=== PATIENT | female | born 1970 | race Caucasian/White ===

== ENCOUNTER 2019-04-10 22:57 | Emergency (ER) | payer OTHER, MEDICARE ==
[2019-04-10] MEDS ORDERED: 50% Dextrose in Water 50 ML Syringe ONE (22:59)
--- NOTE | 2019-04-10 23:04 | EDM.PDOC ---
ED HPI GENERAL MEDICAL PROBLEM - General Stated Complaint: PT HAS LOW BLOOD SUGAR LEVEL Time Seen by Provider: 04/10/19 23:00 - History of Present Illness INITIAL COMMENTS - FREE TEXT/NARRATIVE: HISTORY AND PHYSICAL: History of present illness: Patient's 49-year-old female with past medical history significant for insulin dependent diabetes who presents with a concern of hypoglycemia she arrives via paramedics history is somewhat unclear at this time she had a blood sugar reported of 20 and that on the scene she was given glucagon repeat was 30 4 repeat here was 40 IV was established and 1 amp of D50 was given and patient is awake upon arrival following commands moving all extremities but somewhat anxious. Review of systems: As per history of present illness and below otherwise all systems reviewed and negative. Past medical history: As per history of present illness and as reviewed below otherwise noncontributory. Surgical history: As per history of present illness and as reviewed below otherwise noncontributory. Social history: No reported history of drug or alcohol abuse. Family history: As per history of present illness and as reviewed below otherwise noncontributory. Physical exam: HEENT: Atraumatic, normocephalic, pupils reactive, negative for conjunctival pallor or scleral icterus, mucous membranes moist, throat clear, neck supple, nontender, trachea midline. Lungs: Clear to auscultation, breath sounds equal bilaterally, chest nontender. Heart: S1S2, regular, negative for clicks, rubs, or JVD. Abdomen: Soft, nondistended, nontender. Negative for masses or hepatosplenomegaly. Negative for costovertebral tenderness. Pelvis: Stable nontender. Genitourinary: Deferred. Rectal: Deferred. Extremities: Atraumatic, negative for cords or calf pain. Neurovascular unremarkable. Neuro: Awake, alert, anxious moves all extremities follows commands limited grossly nonfocal exam\ Diagnostics: EKG CBC CMP chest x-ray Therapeutics: Normal saline 1 L bolus 1 amp D50 IV Impression: #1 hypoglycemic episode #2 history of diabetes Definitive disposition and diagnosis as appropriate pending reevaluation and review of above. denies pain Pain Score (Numeric/FACES): 0 - Related Data Allergies Allergy/AdvReac Type Severity Reaction Status Date / Time Buanwxn-Fro-Wyz Reductase Allergy Other Verified 04/10/19 23:08 Inhibitor Home Meds: Home Meds Aspirin 81 mg PO DAILY 08/10/18 [History] Carvedilol 3.125 mg PO BID 08/10/18 [History] Cholecalciferol (Vitamin D3) [Vitamin D3] 1 cap PO DAILY 08/10/18 [History] Estrogens, Conjugated [Premarin] 1.25 mg PO DAILY 08/10/18 [History] Gabapentin [Neurontin] 100 mg PO TID 08/10/18 [History] Levomefolate/B6/B12/Algal Oil [l-Methylfolate Ca P-5-P Me-Cbl] 1 cap PO BID [History] Magnesium 250 mg PO BEDTIME 08/10/18 [History] Montelukast [Singulair] 10 mg PO DAILY 08/10/18 [History] Nitroglycerin [Nitrostat] 0.4 mg SL ASDIRECTED 08/10/18 [History] Topiramate 100 mg PO BID 08/10/18 [History] Insulin Aspart [NovoLOG] 0 unit SQ TIDMEALS 08/13/18 [History] Insulin Glarg,Human.Rec.Analog [Lantus Solostar] 6 unit SUBCUT BEDTIME 08/13/18 [History] Insulin Glarg,Human.Rec.Analog [Lantus] 8 unit SUBCUT ACBREAKFAST 08/13/18 [ History] ZOLMitriptan [Zomig] 5 mg SHILPA PRN 08/13/18 [History] Albuterol/Ipratropium [DuoNeb 3.0-0.5 MG/3 ML] 3 ml NEB Q6HRRT #1 box 08/15/18 [ Rx] Sulfamethoxazole/Trimethoprim [Bactrim Ds Tablet] 1 each PO BID 2 Days #4 tablet 08/15/18 [Rx] predniSONE [Prednisone] 20 mg PO BID 10 Days #14 tablet 08/15/18 [Rx] Past Medical History HEENT History: Reports: Allergic Rhinitis Cardiovascular History: Reports: [place] Other Cardiovascular History: triple bypass Respiratory History: Reports: Asthma, Sleep Apnea Gastrointestinal History: Reports: None Genitourinary History: Reports: Diabetic Nephropathy 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: Musculoskeletal History: Reports: None Neurological History: Reports: None Psychiatric History: Reports: None Endocrine/Metabolic History: Reports: Diabetes, Type I Hematologic History: Reports: None Immunologic History: Reports: None Oncologic (Cancer) History: Reports: None Dermatologic History: Reports: None - Infectious Disease History Infectious Disease History: Reports: Chicken Pox - Past Surgical History GI Surgical History: Reports: Appendectomy Social & Family History - Family History Family Medical History: Noncontributory - Caffeine Use Caffeine Use: Reports: Coffee ED ROS GENERAL - Review of Systems Review Of Systems: ROS reveals no pertinent complaints other than HPI. ED EXAM, GENERAL - Physical Exam Exam: See Below (See dictation) Course - Vital Signs Last Recorded V/S: Last Vital Signs Temp 35.5 C 04/10/19 23:00 Pulse 75 04/10/19 23:00 Resp 18 04/10/19 23:00 BP 157/83 H 04/10/19 23:00 Pulse Ox 97 04/10/19 23:00 - Orders/Labs/Meds Orders: Active Orders 24 hr Category Date Time Status EKG 12 Lead [EKG Documentation Completion] [RC] STAT Care 04/10/19 23:33 Active Pulse Oximetry [RC] ASDIRECTED Care 04/10/19 23:27 Active CULTURE URINE [RM] Stat Lab 04/11/19 00:11 Received Labs: Laboratory Tests 04/10/19 04/10/19 04/11/19 Range/Units 23:05 23:39 00:11 WBC 6.43 (4.0-11.0) K/uL RBC 4.48 (4.30-5.90) M/uL Hgb 13.9 (12.0-16.0) g/dL Hct 40.9 (36.0-46.0) % MCV 91.3 (80.0-98.0) fL MCH 31.0 (27.0-32.0) pg MCHC 34.0 (31.0-37.0) g/dL RDW Std Deviation 42.9 (28.0-62.0) fl RDW Coeff of Margaret 13 (11.0-15.0) % Plt Count 238 (150-400) K/uL MPV 9.50 (7.40-12.00) fL Neut % (Auto) 32.5 L (48.0-80.0) % Lymph % (Auto) 45.4 H (16.0-40.0) % Elmore % (Auto) 7.2 (0.0-15.0) % Eos % (Auto) 13.5 H (0.0-7.0) % Baso % (Auto) 1.4 (0.0-1.5) % Neut # (Auto) 2.1 (1.4-5.7) K/uL Lymph # (Auto) 2.9 H (0.6-2.4) K/uL Elmore # (Auto) 0.5 (0.0-0.8) K/uL Eos # (Auto) 0.9 H (0.0-0.7) K/uL Baso # (Auto) 0.1 (0.0-0.1) K/uL Nucleated RBC % 0.0 /100WBC Nucleated RBCs # 0 K/uL INR Sodium (136-145) mmol/L Potassium (3.5-5.1) mmol/L Chloride (98-107) mmol/L Carbon Dioxide (21.0-32.0) mmol/L BUN (7.0-18.0) mg/dL Creatinine (0.6-1.0) mg/dL Est Cr Clr Drug Dosing mL/min Estimated GFR (MDRD) ml/min Glucose (74-106) mg/dL POC Glucose 229 H (60-110) mg/dL Calcium (8.5-10.1) mg/dL Total Bilirubin (0.2-1.0) mg/dL AST (15-37) IU/L ALT (14-63) IU/L Alkaline Phosphatase (46-116) U/L Troponin I (0.000-0.056) ng/mL Total Protein (6.4-8.2) g/dL Albumin (3.4-5.0) g/dL Globulin (2.6-4.0) g/dL Albumin/Globulin Ratio (0.9-1.6) Urine Color YELLOW Urine Appearance CLEAR Urine pH 7.0 (5.0-8.0) Ur Specific Rock 1.015 (1.001-1.035) Urine Protein NEGATIVE (NEGATIVE) mg/dL Urine Glucose (UA) 100 H (NEGATIVE) mg/dL Urine Ketones NEGATIVE (NEGATIVE) mg/dL Urine Occult Blood NEGATIVE (NEGATIVE) Urine Nitrite NEGATIVE (NEGATIVE) Urine Bilirubin NEGATIVE (NEGATIVE) Urine Urobilinogen 0.2 (<2.0) EU/dL Ur Leukocyte Esterase MODERATE H (NEGATIVE) Urine RBC 0-1 (0-2/HPF) Urine WBC 0-3 (0-5/HPF) Ur Epithelial Cells OCCASIONAL (NONE-FEW) Urine Bacteria RARE (NEGATIVE) 04/11/19 04/11/19 04/11/19 Range/Units 00:15 00:15 00:15 WBC (4.0-11.0) K/uL RBC (4.30-5.90) M/uL Hgb (12.0-16.0) g/dL Hct (36.0-46.0) % MCV (80.0-98.0) fL MCH (27.0-32.0) pg MCHC (31.0-37.0) g/dL RDW Std Deviation (28.0-62.0) fl RDW Coeff of Margaret (11.0-15.0) % Plt Count (150-400) K/uL MPV (7.40-12.00) fL Neut % (Auto) (48.0-80.0) % Lymph % (Auto) (16.0-40.0) % Elmore % (Auto) (0.0-15.0) % Eos % (Auto) (0.0-7.0) % Baso % (Auto) (0.0-1.5) % Neut # (Auto) (1.4-5.7) K/uL Lymph # (Auto) (0.6-2.4) K/uL Elmore # (Auto) (0.0-0.8) K/uL Eos # (Auto) (0.0-0.7) K/uL Baso # (Auto) (0.0-0.1) K/uL Nucleated RBC % /100WBC Nucleated RBCs # K/uL INR 0.93 Sodium 142 (136-145) mmol/L Potassium 3.4 L (3.5-5.1) mmol/L Chloride 109 H (98-107) mmol/L Carbon Dioxide 25.6 (21.0-32.0) mmol/L BUN 23 H (7.0-18.0) mg/dL Creatinine 1.0 (0.6-1.0) mg/dL Est Cr Clr Drug Dosing 63.71 mL/min Estimated GFR (MDRD) 58.9 ml/min Glucose 232 H (74-106) mg/dL POC Glucose 231 H (60-110) mg/dL Calcium 8.4 L (8.5-10.1) mg/dL Total Bilirubin 0.2 (0.2-1.0) mg/dL AST 15 (15-37) IU/L ALT 29 (14-63) IU/L Alkaline Phosphatase 64 (46-116) U/L Troponin I < 0.050 (0.000-0.056) ng/mL Total Protein 6.2 L (6.4-8.2) g/dL Albumin 3.1 L (3.4-5.0) g/dL Globulin 3.1 (2.6-4.0) g/dL Albumin/Globulin Ratio 1.0 (0.9-1.6) Urine Color Urine Appearance Urine pH (5.0-8.0) Ur Specific Rock (1.001-1.035) Urine Protein (NEGATIVE) mg/dL Urine Glucose (UA) (NEGATIVE) mg/dL Urine Ketones (NEGATIVE) mg/dL Urine Occult Blood (NEGATIVE) Urine Nitrite (NEGATIVE) Urine Bilirubin (NEGATIVE) Urine Urobilinogen (<2.0) EU/dL Ur Leukocyte Esterase (NEGATIVE) Urine RBC (0-2/HPF) Urine WBC (0-5/HPF) Ur Epithelial Cells (NONE-FEW) Urine Bacteria (NEGATIVE) Meds: Medications Discontinued Medications Generic Name Dose Route Start Last Admin Trade Name Johnq PRN Reason Stop Dose Admin Dextrose/Water Confirm 04/10/19 22:59 04/10/19 23:06 Dextrose 50% In Water Administered 04/10/19 23:00 50 ml Dose Administration 50 ml .ROUTE .STK-MED ONE Dextrose/Water 50 ml 04/10/19 23:23 04/10/19 23:18 Dextrose 50% In Water IVPUSH 04/10/19 23:24 50 ml ONETIME ONE Administration Sodium Chloride 1,000 mls @ 999 mls/hr 04/10/19 23:26 04/10/19 23:32 Normal Saline IV 04/11/19 00:26 999 mls/hr .BOLUS ONE Administration Departure - Departure Time of Disposition: 01:21 Disposition: Home, Self-Care 01 Condition: Good Clinical Impression: Hypoglycemia - Discharge Information Referrals: PCP,None [Primary Care Provider] - Additional Instructions: The following information is given to patients seen in the emergency department who are being discharged to home. This information is to outline your options for follow-up care. We provide all patients seen in our emergency department with a follow-up referral. The need for follow-up, as well as the timing and circumstances, are variable depending upon the specifics of your emergency department visit. If you don't have a primary care physician on staff, we will provide you with a referral. We always advise you to contact your personal physician following an emergency department visit to inform them of the circumstance of the visit and for follow-up with them and/or the need for any referrals to a consulting specialist. The emergency department will also refer you to a specialist when appropriate. This referral assures that you have the opportunity for followup care with a specialist. All of these measure are taken in an effort to provide you with optimal care, which includes your followup. Under all circumstances we always encourage you to contact your private physician who remains a resource for coordinating your care. When calling for followup care, please make the office aware that this follow-up is from your recent emergency room visit. If for any reason you are refused follow-up, please contact the [facility] emergency department at and asked to speak to the emergency department charge nurse. Eat regularly as discussed Accu-Chek 4 times a day as discussed follow-up primary medical doctor as discussed and return as needed as discussed - My Orders Last 24 Hours: My Active Orders 04/10/19 23:27 Pulse Oximetry [RC] ASDIRECTED 04/10/19 23:33 EKG 12 Lead [EKG Documentation Completion] [RC] STAT 04/11/19 00:11 CULTURE URINE [RM] Stat - Assessment/Plan Last 24 Hours: My Active Orders 04/10/19 23:27 Pulse Oximetry [RC] ASDIRECTED 04/10/19 23:33 EKG 12 Lead [EKG Documentation Completion] [RC] STAT 04/11/19 00:11 CULTURE URINE [RM] Stat
[2019-04-10] MEDS ORDERED: 50% Dextrose in Water 50 ML Syringe IVPUSH ONE (23:23)
[2019-04-10] MEDS ORDERED: Sodium Chloride 0.9% 1,000 ML IV ONE (23:26)
--- NOTE | 2019-04-11 00:41 | CR ---
INDICATION: cardiac workup. CHEST, ONE VIEW An AP radiograph of the chest was performed. Comparison: 08/13/2018. The lungs appear clear and no pleural effusions are identified. Status post sternotomy and CABG is again seen. The cardiomediastinal silhouette and pulmonary vasculature appear normal, as do the visualized bones. IMPRESSION: No acute intrathoracic abnormality identified. REGINO CASTILLO MD [facility] Dictated by: Rodri Castillo MD @ 04/11/2019 00:40:06 (Electronically Signed)
[2019-04-11 00:46] LABS: CHLORIDE,CL 109 mmol/L (98-107); SODIUM,NA 142 mmol/L (136-145)
== END 2019-04-11 01:45 | disposition home or self-care (01) ==
LOC: MW.ED 22:57
DX: E10.649 Type 1 diabetes mellitus with hypoglycemia without coma (principal); J45.909 Unspecified asthma, uncomplicated; Z88.8 Allergy status to other drugs, medicaments and biological substances; Z79.4 Long term (current) use of insulin; Z79.82 Long term (current) use of aspirin; Z79.899 Other long term (current) drug therapy
CPT/HCPCS: 36415; 71045; 80053; 81001; 82962; 84484; 85025; 85610; 87086; 93005; 96361; 96374; 99284; J7040; J7060; 99283

== ENCOUNTER 2019-10-22 12:44 | Emergency (ER) | payer OTHER, MEDICARE ==
[2019-10-22] MEDS ORDERED: Sodium Chloride 0.9% 1,000 ML IV SCH (13:00)
[2019-10-22] MEDS ORDERED: Ketorolac 30 MG/ML SDV IVPUSH ONE (14:31)
--- NOTE | 2019-10-22 14:51 | EDM.PDOC ---
ED HPI GENERAL MEDICAL PROBLEM - General Chief Complaint: Diabetic Complaint Stated Complaint: FAINTING/LOW SUGARS Time Seen by Provider: 10/22/19 14:47 Source of Information: Reports: Patient - History of Present Illness INITIAL COMMENTS - FREE TEXT/NARRATIVE: HISTORY AND PHYSICAL: History of present illness: [Patient with history of diabetes on insulin presents with low blood sugar, glucose of 51 via EMS, she was provided 2 A of d50 in the ambulance, arrives on arrival glucose 61 after 1/2-hour glucose 180s has been stable over several checks, she is on insulin has taken her usual dose, she did take 8 units this morning with breakfast per sliding scale and is on 10 units of Lantus Patient has complained of headache prior to arrival and syncopal event which prompted the EMS call At current no fever nausea vomiting chills sweats no chest pain shortness of breath dizziness or palpitation no bowel or urine symptoms And has had nausea vomiting and diarrhea several days ago which have resolved States her glucose levels have been up and down since ] Review of systems: As per history of present illness and below otherwise all systems reviewed and negative. Past medical history: As per history of present illness and as reviewed below otherwise noncontributory. Surgical history: As per history of present illness and as reviewed below otherwise noncontributory. Social history: No reported history of drug or alcohol abuse. Family history: As per history of present illness and as reviewed below otherwise noncontributory. Physical exam: HEENT: Atraumatic, normocephalic, pupils reactive, negative for conjunctival pallor or scleral icterus, mucous membranes moist, throat clear, neck supple, nontender, trachea midline. Lungs: Clear to auscultation, breath sounds equal bilaterally, chest nontender. Heart: S1S2, regular, negative for clicks, rubs, or JVD. Abdomen: Soft, nondistended, nontender. Negative for masses or hepatosplenomegaly. Negative for costovertebral tenderness. Pelvis: Stable nontender. Genitourinary: Deferred. Rectal: Deferred. Extremities: Atraumatic, negative for cords or calf pain. Neurovascular unremarkable. Neuro: Awake, alert, oriented. Cranial nerves II through XII unremarkable. Cerebellum unremarkable. Motor and sensory unremarkable throughout. Exam nonfocal. Diagnostics: [accu checks CBC CMP UA ] Therapeutics: [Normal saline ]macrobid pt observed stable glucose over 3 hours, likely insulin reaction-resolved offered obs admission, refused Impression: uTI viralsyndrome resolved [Hypoglycemia resolved Insulin-dependent diabetic] Definitive disposition and diagnosis as appropriate pending reevaluation and review of above. Right shoulder Pain Score (Numeric/FACES): 4 - Related Data Allergies Allergy/AdvReac Type Severity Reaction Status Date / Time Zojzdip-Zoz-Sxk Reductase Allergy Other Verified 10/22/19 12:51 Inhibitor Home Meds: Home Meds Estrogens, Conjugated [Premarin] 1.25 mg PO DAILY 10/22/19 [History] Insulin Aspart [NovoLOG] See Protocol SQ ASDIRECTED 10/22/19 [History] Insulin Glarg,Human.Rec.Analog [Lantus] 6 unit SQ ASDIRECTED 10/22/19 [History] Insulin Glarg,Human.Rec.Analog [Lantus] 8 units SQ ASDIRECTED 10/22/19 [History] Pregabalin [Lyrica] 100 mg PO DAILY 10/22/19 [History] Topiramate 100 mg PO BID 10/22/19 [History] Past Medical History HEENT History: Reports: Allergic Rhinitis Cardiovascular History: Reports: [place], [place] Other Cardiovascular History: triple bypass Respiratory History: Reports: Asthma, Sleep Apnea Gastrointestinal History: Reports: None Genitourinary History: Reports: Diabetic Nephropathy 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: Reports: Musculoskeletal History: Reports: None Neurological History: Reports: None Psychiatric History: Reports: None Endocrine/Metabolic History: Reports: Diabetes, Type I Hematologic History: Reports: None Immunologic History: Reports: None Oncologic (Cancer) History: Reports: None Dermatologic History: Reports: None - Infectious Disease History Infectious Disease History: Reports: None - Past Surgical History Head Surgeries/Procedures: Reports: None GI Surgical History: Reports: Appendectomy Social & Family History - Family History Family Medical History: Noncontributory - Tobacco Use Smoking Status *Q: Never Smoker - Caffeine Use Caffeine Use: Reports: Coffee - Recreational Drug Use Recreational Drug Use: No ED ROS GENERAL - Review of Systems Review Of Systems: See Below ED EXAM GENERAL NO PERIP PULSE - Physical Exam Exam: See Below Course - Vital Signs Last Recorded V/S: Last Vital Signs Temp 97.9 F 10/22/19 12:52 Pulse 78 10/22/19 12:52 Resp 20 10/22/19 12:52 BP 134/69 10/22/19 12:52 Pulse Ox 98 10/22/19 12:52 - Orders/Labs/Meds Orders: Active Orders 24 hr Category Date Time Status Accu Check [Blood Glucose Check, Bedside] [] ONETIME Care 10/22/19 12:52 Active EKG Documentation Completion [RC] STAT Care 10/22/19 13:01 Active CULTURE URINE [] Stat Lab 10/22/19 13:40 Received Sodium Chloride 0.9% [Normal Saline] 1,000 ml Med 10/22/19 13:00 Active IV STAT Medication Orders Sodium Chloride (Normal Saline) 1,000 mls @ 125 mls/hr IV STAT TATIANA Last Admin: 10/22/19 14:24 Dose: 125 mls/hr Labs: Laboratory Tests 10/22/19 10/22/19 10/22/19 Range/Units 13:34 13:40 14:04 WBC (4.0-11.0) K/uL RBC (4.30-5.90) M/uL Hgb (12.0-16.0) g/dL Hct (36.0-46.0) % MCV (80.0-98.0) fL MCH (27.0-32.0) pg MCHC (31.0-37.0) g/dL RDW Std Deviation (28.0-62.0) fl RDW Coeff of Margaret (11.0-15.0) % Plt Count (150-400) K/uL MPV (7.40-12.00) fL Neut % (Auto) (48.0-80.0) % Lymph % (Auto) (16.0-40.0) % [place] % (Auto) (0.0-15.0) % Eos % (Auto) (0.0-7.0) % Baso % (Auto) (0.0-1.5) % Neut # (Auto) (1.4-5.7) K/uL Lymph # (Auto) (0.6-2.4) K/uL [place] # (Auto) (0.0-0.8) K/uL Eos # (Auto) (0.0-0.7) K/uL Baso # (Auto) (0.0-0.1) K/uL Nucleated RBC % /100WBC Nucleated RBCs # K/uL Sodium (136-145) mmol/L Potassium (3.5-5.1) mmol/L Chloride (98-107) mmol/L Carbon Dioxide (21.0-32.0) mmol/L BUN (7.0-18.0) mg/dL Creatinine (0.6-1.0) mg/dL Est Cr Clr Drug Dosing mL/min Estimated GFR (MDRD) ml/min Glucose (74-106) mg/dL POC Glucose 173 H 189 H (60-110) mg/dL Calcium (8.5-10.1) mg/dL Total Bilirubin (0.2-1.0) mg/dL AST (15-37) IU/L ALT (14-63) IU/L Alkaline Phosphatase (46-116) U/L Total Protein (6.4-8.2) g/dL Albumin (3.4-5.0) g/dL Globulin (2.6-4.0) g/dL Albumin/Globulin Ratio (0.9-1.6) Urine Color YELLOW Urine Appearance CLEAR Urine pH 5.5 (5.0-8.0) Ur Specific [place] 1.010 (1.001-1.035) Urine Protein NEGATIVE (NEGATIVE) mg/dL Urine Glucose (UA) NEGATIVE (NEGATIVE) mg/dL Urine Ketones NEGATIVE (NEGATIVE) mg/dL Urine Occult Blood NEGATIVE (NEGATIVE) Urine Nitrite NEGATIVE (NEGATIVE) Urine Bilirubin NEGATIVE (NEGATIVE) Urine Urobilinogen 0.2 (<2.0) EU/dL Ur Leukocyte Esterase TRACE H (NEGATIVE) Urine RBC 0-3 (0-2/HPF) Urine WBC 0-3 (0-5/HPF) Ur Epithelial Cells FEW (NONE-FEW) Urine Bacteria RARE (NEGATIVE) Urine Yeast FEW 10/22/19 10/22/19 10/22/19 Range/Units 14:28 14:28 14:38 WBC 5.39 (4.0-11.0) K/uL RBC 3.93 L (4.30-5.90) M/uL Hgb 11.6 L (12.0-16.0) g/dL Hct 35.3 L (36.0-46.0) % MCV 89.8 (80.0-98.0) fL MCH 29.5 (27.0-32.0) pg MCHC 32.9 (31.0-37.0) g/dL RDW Std Deviation 43.0 (28.0-62.0) fl RDW Coeff of Margaret 13 (11.0-15.0) % Plt Count 227 (150-400) K/uL MPV 9.70 (7.40-12.00) fL Neut % (Auto) 66.1 (48.0-80.0) % Lymph % (Auto) 28.4 (16.0-40.0) % [place] % (Auto) 4.6 (0.0-15.0) % Eos % (Auto) 0.7 (0.0-7.0) % Baso % (Auto) 0.2 (0.0-1.5) % Neut # (Auto) 3.6 (1.4-5.7) K/uL Lymph # (Auto) 1.5 (0.6-2.4) K/uL [place] # (Auto) 0.3 (0.0-0.8) K/uL Eos # (Auto) 0.0 (0.0-0.7) K/uL Baso # (Auto) 0.0 (0.0-0.1) K/uL Nucleated RBC % 0.0 /100WBC Nucleated RBCs # 0 K/uL Sodium 141 (136-145) mmol/L Potassium 4.1 (3.5-5.1) mmol/L Chloride 107 (98-107) mmol/L Carbon Dioxide 22.1 (21.0-32.0) mmol/L BUN 21 H (7.0-18.0) mg/dL Creatinine 0.9 (0.6-1.0) mg/dL Est Cr Clr Drug Dosing 70.78 mL/min Estimated GFR (MDRD) > 60.0 ml/min Glucose 210 H (74-106) mg/dL POC Glucose 219 H (60-110) mg/dL Calcium 8.2 L (8.5-10.1) mg/dL Total Bilirubin 0.1 L (0.2-1.0) mg/dL AST 12 L (15-37) IU/L ALT 27 (14-63) IU/L Alkaline Phosphatase 78 (46-116) U/L Total Protein 5.8 L (6.4-8.2) g/dL Albumin 3.1 L (3.4-5.0) g/dL Globulin 2.7 (2.6-4.0) g/dL Albumin/Globulin Ratio 1.2 (0.9-1.6) Urine Color Urine Appearance Urine pH (5.0-8.0) Ur Specific [place] (1.001-1.035) Urine Protein (NEGATIVE) mg/dL Urine Glucose (UA) (NEGATIVE) mg/dL Urine Ketones (NEGATIVE) mg/dL Urine Occult Blood (NEGATIVE) Urine Nitrite (NEGATIVE) Urine Bilirubin (NEGATIVE) Urine Urobilinogen (<2.0) EU/dL Ur Leukocyte Esterase (NEGATIVE) Urine RBC (0-2/HPF) Urine WBC (0-5/HPF) Ur Epithelial Cells (NONE-FEW) Urine Bacteria (NEGATIVE) Urine Yeast 10/22/19 Range/Units 15:08 WBC (4.0-11.0) K/uL RBC (4.30-5.90) M/uL Hgb (12.0-16.0) g/dL Hct (36.0-46.0) % MCV (80.0-98.0) fL MCH (27.0-32.0) pg MCHC (31.0-37.0) g/dL RDW Std Deviation (28.0-62.0) fl RDW Coeff of Margaret (11.0-15.0) % Plt Count (150-400) K/uL MPV (7.40-12.00) fL Neut % (Auto) (48.0-80.0) % Lymph % (Auto) (16.0-40.0) % [place] % (Auto) (0.0-15.0) % Eos % (Auto) (0.0-7.0) % Baso % (Auto) (0.0-1.5) % Neut # (Auto) (1.4-5.7) K/uL Lymph # (Auto) (0.6-2.4) K/uL [place] # (Auto) (0.0-0.8) K/uL Eos # (Auto) (0.0-0.7) K/uL Baso # (Auto) (0.0-0.1) K/uL Nucleated RBC % /100WBC Nucleated RBCs # K/uL Sodium (136-145) mmol/L Potassium (3.5-5.1) mmol/L Chloride (98-107) mmol/L Carbon Dioxide (21.0-32.0) mmol/L BUN (7.0-18.0) mg/dL Creatinine (0.6-1.0) mg/dL Est Cr Clr Drug Dosing mL/min Estimated GFR (MDRD) ml/min Glucose (74-106) mg/dL POC Glucose 223 H (60-110) mg/dL Calcium (8.5-10.1) mg/dL Total Bilirubin (0.2-1.0) mg/dL AST (15-37) IU/L ALT (14-63) IU/L Alkaline Phosphatase (46-116) U/L Total Protein (6.4-8.2) g/dL Albumin (3.4-5.0) g/dL Globulin (2.6-4.0) g/dL Albumin/Globulin Ratio (0.9-1.6) Urine Color Urine Appearance Urine pH (5.0-8.0) Ur Specific [place] (1.001-1.035) Urine Protein (NEGATIVE) mg/dL Urine Glucose (UA) (NEGATIVE) mg/dL Urine Ketones (NEGATIVE) mg/dL Urine Occult Blood (NEGATIVE) Urine Nitrite (NEGATIVE) Urine Bilirubin (NEGATIVE) Urine Urobilinogen (<2.0) EU/dL Ur Leukocyte Esterase (NEGATIVE) Urine RBC (0-2/HPF) Urine WBC (0-5/HPF) Ur Epithelial Cells (NONE-FEW) Urine Bacteria (NEGATIVE) Urine Yeast Meds: Medications Generic Name Dose Route Start Last Admin Trade Name Freq PRN Reason Stop Dose Admin Sodium Chloride 1,000 mls @ 125 mls/hr 10/22/19 13:00 10/22/19 14:24 Normal Saline IV 125 mls/hr STAT TATIANA Administration Discontinued Medications Generic Name Dose Route Start Last Admin Trade Name Freq PRN Reason Stop Dose Admin Ketorolac Tromethamine 30 mg 10/22/19 14:31 10/22/19 14:43 Toradol IVPUSH 10/22/19 14:32 Not Given ONETIME ONE Departure - Departure Time of Disposition: 15:22 Disposition: Home, Self-Care 01 Condition: Good Clinical Impression: Adverse reaction to drug, Head ache, UTI (urinary tract infection) - Discharge Information Referrals: PCP,Unknown [Primary Care Provider] - Forms: ED Department Discharge Additional Instructions: The following information is given to patients seen in the emergency department who are being discharged to home. This information is to outline your options for follow-up care. We provide all patients seen in our emergency department with a follow-up referral. The need for follow-up, as well as the timing and circumstances, are variable depending upon the specifics of your emergency department visit. If you don't have a primary care physician on staff, we will provide you with a referral. We always advise you to contact your personal physician following an emergency department visit to inform them of the circumstance of the visit and for follow-up with them and/or the need for any referrals to a consulting specialist. The emergency department will also refer you to a specialist when appropriate. This referral assures that you have the opportunity for follow-up care with a specialist. All of these measure are taken in an effort to provide you with optimal care, which includes your follow-up. Under all circumstances we always encourage you to contact your private physician who remains a resource for coordinating your care. When calling for follow-up care, please make the office aware that this follow-up is from your recent emergency room visit. If for any reason you are refused follow-up, please contact the [facility] emergency department at and asked to speak to the emergency department charge nurse. Sepsis Event Note - Evaluation Sepsis Screening Result: No Definite Risk - Focused Exam Vital Signs: Vital Signs Temp Pulse Resp BP Pulse Ox 10/22/19 12:52 97.9 F 78 20 134/69 98 Date Exam was Performed: 10/22/19 Time Exam was Performed: 15:21 - My Orders Last 24 Hours: My Active Orders 10/22/19 12:52 Accu Check [Blood Glucose Check, Bedside] [RC] ONETIME 10/22/19 13:00 Sodium Chloride 0.9% [Normal Saline] 1,000 ml IV STAT 10/22/19 13:01 EKG Documentation Completion [RC] STAT 10/22/19 13:40 CULTURE URINE [RM] Stat - Assessment/Plan Last 24 Hours: My Active Orders 10/22/19 12:52 Accu Check [Blood Glucose Check, Bedside] [RC] ONETIME 10/22/19 13:00 Sodium Chloride 0.9% [Normal Saline] 1,000 ml IV STAT 10/22/19 13:01 EKG Documentation Completion [RC] STAT 10/22/19 13:40 CULTURE URINE [RM] Stat
--- NOTE | 2019-10-22 15:09 | CT ---
INDICATION: 49-year-old female. Head pain. Neck pain. TECHNIQUE: CT images are obtained from foramen magnum to vertex without contrast, axial sagittal and coronal reconstructions were obtained. FINDINGS: Ventricles and subarachnoid spaces are slightly prominent for age due to mild volume loss. No acute intracranial hemorrhage. No subdural or epidural fluid collections no mass effect or midline shift preservation of gonzalez-white interface. No focal edema or mass effect no evidence of recent infarction with some atherosclerotic calcifications of parasellar internal carotid arteries and distal left vertebral artery are prominent for age. Fluid levels in the bilateral maxillary and frontal sinuses and opacified ethmoid air cells consistent with sinus inflammation. IMPRESSION: 1. No evidence of acute hemorrhage, mass effect or recent focal infarction. 2. Prominent CSF spaces for age. 3. Fluid levels and mucosal thickening within the paranasal sinuses. Correlate clinically as to symptoms of acute sinusitis. Please note that all CT scans at this facility use dose modulation, iterative reconstruction, and/or weight-based dosing when appropriate to reduce radiation dose to as low as reasonably achievable. Dictated by Ortiz Kaplan MD @ Oct 22 2019 3:04PM Signed by Dr. Ortiz Kaplan @ Oct 22 2019 3:06PM
[2019-10-22 15:13] LABS: BLOOD UREA NITROGEN,BUN 21 mg/dL (7.0-18.0); CARBON DIOXIDE,CO2 22.1 mmol/L (21.0-32.0); CHLORIDE,CL 107 mmol/L (98-107); GLUCOSE RANDOM 210 mg/dL (74-106); POTASSIUM,K 4.1 mmol/L (3.5-5.1); SODIUM,NA 141 mmol/L (136-145)
--- NOTE | 2019-10-22 15:15 | CR ---
INDICATION: Pain. Fainting. Low blood sugar. TECHNIQUE: Single view of the chest. COMPARISON: 04/10/2019. FINDINGS: Sternotomy wires and surgical clips are unchanged. Heart and mediastinum are normal. Lungs are clear. No consolidations or pleural effusions. Trachea is midline. No pneumothorax. IMPRESSION: Stable chest. No evidence of acute disease. Dictated by Jose Guadalupe Hooper MD @ Oct 22 2019 3:12PM Signed by Dr. Jose Guadalupe Hooper @ Oct 22 2019 3:14PM
== END 2019-10-22 16:17 | disposition home or self-care (01) ==
LOC: MW.ED 12:44
DX: R51 Headache (principal); N39.0 Urinary tract infection, site not specified; T50.905A Adverse effect of unspecified drugs, medicaments and biological substances, initial encounter; I25.2 Old myocardial infarction; E10.21 Type 1 diabetes mellitus with diabetic nephropathy; J45.909 Unspecified asthma, uncomplicated; Z79.899 Other long term (current) drug therapy
CPT/HCPCS: 36415; 70450; 71045; 80053; 81001; 82962; 85025; 87086; 93005; 96360; 96361; 99285; J7030; 99283

== ENCOUNTER 2020-08-22 19:10 | Inpatient (IN) | payer MEDICARE, OTHER ==
[2020-08-22] MEDS ORDERED: Albuterol HFA 18 Gm Inhaler INH STA (19:29)
[2020-08-22] MEDS ORDERED: Albuterol HFA 18 Gm Inhaler ONE (19:30)
[2020-08-22] MEDS ORDERED: Sodium Chloride 0.9% 10 ML Syringe FLUSH PRN (19:31)
[2020-08-22] MEDS ORDERED: Sodium Chloride 0.9% 1,000 ML IV ONE (19:31)
[2020-08-22] MEDS ORDERED: methylPREDNISolone Sodium Succinate 125 MG/2 ML SDV IVPUSH ONE (19:31)
[2020-08-22] MEDS ORDERED: Sodium Chloride 0.9% 2.5 ML Syringe FLUSH PRN (19:31)
--- NOTE | 2020-08-22 19:34 | EDM.PDOC ---
ED HPI GENERAL MEDICAL PROBLEM - General Chief Complaint: Respiratory Problem Stated Complaint: SOB Time Seen by Provider: 08/22/20 19:25 - History of Present Illness INITIAL COMMENTS - FREE TEXT/NARRATIVE: HPI This patient has increasing shortness of breath with wheezing and difficulty breathing for 2 weeks. 6 days ago she and her because they both were having trouble breathing were tested for COVID-19 and it resulted as negative. The patient does not have fever or chills. She has gradually increasing shortness of breath to the point of becoming severe. She has asthma and uses albuterol inhaler. She is not out of her inhaler but she is not using her chamber which she does have at home. Patient has no other systemic signs of infection or illness. [] Review of systems: As per history of present illness and below otherwise all systems reviewed and negative. Past medical history: As per history of present illness and as reviewed below otherwise noncontributory. Surgical history: As per history of present illness and as reviewed below otherwise noncontributory. Social history: No reported history of drug or alcohol abuse. Family history: As per history of present illness and as reviewed below otherwise noncontributory. Physical exam: Constitutional - well developed, well-nourished and in no acute distress HEENT - normocephalic, no evidence of trauma - external nose and mouth normal - no mass in neck and no JVD - mucosae moist EYES - full EOM, PERRL, no icterus - no evidence of inflammation, injection, or drainage Respiratory -old respiratory distress, equal bilateral expansion, lungs scattered wheezes and diminished breath sounds. She uses prolonged expiratory phase and uses accessory muscles. Oxygen saturation 89 % on room air. That is. It corrected to 92% with 2 L of oxygen. When I first saw her she was struggling somewhat but the oxygen saturation was 95% on 2 L. Cardiovascular - Regular Rhythm with S1 and S2 appreciated and no murmur, gallop or rub. GI - abdomen soft without distension or organomegaly - normal bowel sounds - no guard or rebound Musculoskeletal no gross deformity of long bones or joints - no tenderness, swelling or edema Neurologic - Alert and oriented times four - CN II-XII grossly intact - motor sensory and coordination symmetrically normal Psychiatric - appropriate mood and affect with normal thought content Hematologic - No petechiae or purpura - mucosa appropriate color and sclera not pale - normal nail bed color and refill Integument - no rash or evidence of trauma - normal turgor Diagnostics: [] Therapeutics: [] Impression: [] Plan: [] Definitive disposition and diagnosis as appropriate pending reevaluation and review of above. - Related Data Allergies Allergy/AdvReac Type Severity Reaction Status Date / Time [id number]-[id number] Reductase Allergy Other Verified 08/22/20 19:30 Inhibitor Home Meds: Home Meds Estrogens, Conjugated [Premarin] 1.25 mg PO DAILY 10/22/19 [History] Insulin Aspart [NovoLOG] See Protocol SQ ASDIRECTED 10/22/19 [History] Insulin Glarg,Human.Rec.Analog [Lantus] 6 unit SQ ASDIRECTED 10/22/19 [History] Insulin Glarg,Human.Rec.Analog [Lantus] 8 units SQ ASDIRECTED 10/22/19 [History] Pregabalin [Lyrica] 100 mg PO DAILY 10/22/19 [History] Topiramate 100 mg PO BID 10/22/19 [History] Past Medical History HEENT History: Reports: Allergic Rhinitis Cardiovascular History: Reports: Bypass, PA Other Cardiovascular History: triple bypass Respiratory History: Reports: Asthma, Sleep Apnea Gastrointestinal History: Reports: None Genitourinary History: Reports: Diabetic Nephropathy [employer] History: Reports: Musculoskeletal History: Reports: None Neurological History: Reports: None Psychiatric History: Reports: None Endocrine/Metabolic History: Reports: Diabetes, Type I Hematologic History: Reports: None Immunologic History: Reports: None Oncologic (Cancer) History: Reports: None Dermatologic History: Reports: None - Infectious Disease History Infectious Disease History: Reports: None - Past Surgical History Head Surgeries/Procedures: Reports: None Cardiovascular Surgical History: Reports: Coronary Artery Bypass GI Surgical History: Reports: Appendectomy Musculoskeletal Surgical History: Reports: Arthroscopic Knee, Shoulder Surgery, Other (See Below) Social & Family History - Family History Family Medical History: No Pertinent Family History - Caffeine Use Caffeine Use: Reports: Coffee ED ROS GENERAL - Review of Systems Review Of Systems: Comprehensive ROS is negative, except as noted in HPI. ED EXAM, GENERAL - Physical Exam Exam: See Below Free Text/Narrative:: My physical exam is in the HPI #1 Interpretation EKG Interpretation Comments: EKG sinus tachycardia heart rate 104 axis VII MD 128 QT 427 low voltage but otherwise QRS ST and T air essentially normal. Compared to prior EKG available to me there is no change impression no acute injury Course - Vital Signs Text/Narrative:: 2020 hrs. the patient is improving slightly but still quite tight and wheezy. 2101 hrs. the patient is coughing quite a bit. She feels like she is breathing better. Apparently she is opening up a little bit and able to get some mucus up. 231 hrs. the case was discussed with the hospitalist with a venous blood gas showing a pH of 7.31 PCO2 of 46 with PO2 of 46 Dr. Norris was happy to admit the patient to observation status and try to get her cleared up over the next few hours and get her home tomorrow. Last Recorded V/S: Last Vital Signs Temp 35.9 C L 08/22/20 19:27 Pulse 108 H 08/22/20 20:25 Resp 28 H 08/22/20 20:25 BP 99/63 08/22/20 20:25 Pulse Ox 90 L 08/22/20 20:25 - Orders/Labs/Meds Orders: Active Orders 24 hr Category Date Time Status Admission Status [Patient Status] [ADT] Stat ADT 08/22/20 23:09 Ordered EKG 12 Lead [EKG Documentation Completion] [RC] STAT Care 08/22/20 20:14 Active RT Aerosol Therapy [RC] ASDIRECTED Care 08/22/20 19:41 Active RT Post Treatment Assessment [RC] Click to Edit Care 08/22/20 19:30 Active RT Pre-Treatment Assessment [RC] Click to Edit Care 08/22/20 19:30 Active Sodium Chloride 0.9% [Saline Flush] Med 08/22/20 19:31 Active 10 ml FLUSH ASDIRECTED PRN Sodium Chloride 0.9% [Saline Flush] Med 08/22/20 19:31 Active 2.5 ml FLUSH ASDIRECTED PRN Saline Lock Insert [OM.PC] Stat Oth 08/22/20 19:31 Ordered Medication Orders Sodium Chloride (Saline Flush) 10 ml FLUSH ASDIRECTED PRN PRN Reason: Keep Vein Open Sodium Chloride (Saline Flush) 2.5 ml FLUSH ASDIRECTED PRN PRN Reason: Keep Vein Open Labs: Laboratory Tests 12/07/20 12/07/20 12/07/20 Range/Units 20:00 20:00 20:00 WBC 4.71 (4.0-11.0) K/uL RBC 4.95 (4.30-5.90) M/uL Hgb 14.7 (12.0-16.0) g/dL Hct 44.9 (36.0-46.0) % MCV 90.7 (80.0-98.0) fL MCH 29.7 (27.0-32.0) pg MCHC 32.7 (31.0-37.0) g/dL RDW Std Deviation 43.6 (28.0-62.0) fl RDW Coeff of Margaret 13 (11.0-15.0) % Plt Count 297 (150-400) K/uL MPV 9.40 (7.40-12.00) fL Neut % (Auto) 38.5 L (48.0-80.0) % Lymph % (Auto) 50.5 H (16.0-40.0) % [place] % (Auto) 7.2 (0.0-15.0) % Eos % (Auto) 2.5 (0.0-7.0) % Baso % (Auto) 1.3 (0.0-1.5) % Neut # (Auto) 1.8 (1.4-5.7) K/uL Lymph # (Auto) 2.4 (0.6-2.4) K/uL [place] # (Auto) 0.3 (0.0-0.8) K/uL Eos # (Auto) 0.1 (0.0-0.7) K/uL Baso # (Auto) 0.1 (0.0-0.1) K/uL Nucleated RBC % 0.0 /100WBC Nucleated RBCs # 0 K/uL VBG pH (7.31-7.41) VBG pCO2 (35-45) mmHG VBG pO2 (30-40) mmHG VBG HCO3 (22-30) mEq/L VBG Total CO2 (41-51) mmol/L VBG Base Excess (-3.0-3.0) Sodium 139 (136-145) mmol/L Potassium 5.2 H (3.5-5.1) mmol/L Chloride 105 (98-107) mmol/L Carbon Dioxide 26.1 (21.0-32.0) mmol/L BUN 21 H (7.0-18.0) mg/dL Creatinine 1.5 H (0.6-1.0) mg/dL Est Cr Clr Drug Dosing 40.38 mL/min Estimated GFR (MDRD) 36.8 ml/min Glucose 50 L (74-106) mg/dL Calcium 8.6 (8.5-10.1) mg/dL Magnesium 2.1 (1.8-2.4) mg/dL Total Bilirubin 0.2 (0.2-1.0) mg/dL AST 27 (15-37) IU/L ALT 19 (14-63) IU/L Alkaline Phosphatase 95 (46-116) U/L Troponin I < 0.050 (0.000-0.056) ng/mL Total Protein 6.3 L (6.4-8.2) g/dL Albumin 3.3 L (3.4-5.0) g/dL Globulin 3.0 (2.6-4.0) g/dL Albumin/Globulin Ratio 1.1 (0.9-1.6) Influenza Type A RNA (NEGATIVE) Influenza Type B RNA (NEGATIVE) SARS-CoV-2 RNA (DONATO) (NEGATIVE) 08/22/20 08/22/20 Range/Units 20:45 22:59 WBC (4.0-11.0) K/uL RBC (4.30-5.90) M/uL Hgb (12.0-16.0) g/dL Hct (36.0-46.0) % MCV (80.0-98.0) fL MCH (27.0-32.0) pg MCHC (31.0-37.0) g/dL RDW Std Deviation (28.0-62.0) fl RDW Coeff of Margaret (11.0-15.0) % Plt Count (150-400) K/uL MPV (7.40-12.00) fL Neut % (Auto) (48.0-80.0) % Lymph % (Auto) (16.0-40.0) % [place] % (Auto) (0.0-15.0) % Eos % (Auto) (0.0-7.0) % Baso % (Auto) (0.0-1.5) % Neut # (Auto) (1.4-5.7) K/uL Lymph # (Auto) (0.6-2.4) K/uL [place] # (Auto) (0.0-0.8) K/uL Eos # (Auto) (0.0-0.7) K/uL Baso # (Auto) (0.0-0.1) K/uL Nucleated RBC % /100WBC Nucleated RBCs # K/uL VBG pH 7.31 (7.31-7.41) VBG pCO2 46 H (35-45) mmHG VBG pO2 46 H (30-40) mmHG VBG HCO3 23 (22-30) mEq/L VBG Total CO2 21 L (41-51) mmol/L VBG Base Excess -3.6 L (-3.0-3.0) Sodium (136-145) mmol/L Potassium (3.5-5.1) mmol/L Chloride (98-107) mmol/L Carbon Dioxide (21.0-32.0) mmol/L BUN (7.0-18.0) mg/dL Creatinine (0.6-1.0) mg/dL Est Cr Clr Drug Dosing mL/min Estimated GFR (MDRD) ml/min Glucose (74-106) mg/dL Calcium (8.5-10.1) mg/dL Magnesium (1.8-2.4) mg/dL Total Bilirubin (0.2-1.0) mg/dL AST (15-37) IU/L ALT (14-63) IU/L Alkaline Phosphatase (46-116) U/L Troponin I (0.000-0.056) ng/mL Total Protein (6.4-8.2) g/dL Albumin (3.4-5.0) g/dL Globulin (2.6-4.0) g/dL Albumin/Globulin Ratio (0.9-1.6) Influenza Type A RNA NEGATIVE (NEGATIVE) Influenza Type B RNA NEGATIVE (NEGATIVE) SARS-CoV-2 RNA (DONATO) NEGATIVE (NEGATIVE) Meds: Medications Generic Name Dose Route Start Last Admin Trade Name Freq PRN Reason Stop Dose Admin Sodium Chloride 10 ml 08/22/20 19:31 Saline Flush FLUSH ASDIRECTED PRN Keep Vein Open Sodium Chloride 2.5 ml 08/22/20 19:31 Saline Flush FLUSH ASDIRECTED PRN Keep Vein Open Discontinued Medications Generic Name Dose Route Start Last Admin Trade Name Irais PRN Reason Stop Dose Admin Albuterol 18 gm 08/22/20 19:29 08/22/20 20:22 Ventolin Hfa INH 08/22/20 19:30 2 puff STAT STA Administration Albuterol Confirm 08/22/20 19:30 08/22/20 19:41 Ventolin Hfa Administered 08/22/20 19:31 Not Given Dose 18 gm .ROUTE .STK-MED ONE Albuterol 10 mg 08/22/20 19:40 08/22/20 19:47 Proventil Neb Soln NEB 08/22/20 19:41 10 mg ONETIME ONE Administration Benzonatate 200 mg 08/22/20 21:16 08/22/20 21:23 Tessalon Perles PO 08/22/20 21:17 200 mg ONETIME ONE Administration Sodium Chloride 1,000 mls @ 1,000 mls/hr 08/22/20 19:31 08/22/20 20:21 Normal Saline IV 08/22/20 20:30 1,000 mls/hr .Bolus ONE Administration Magnesium Sulfate 2 gm in 50 mls @ 25 mls/hr 08/22/20 20:00 08/22/20 20:22 Magnesium Sulfate In Water Premix IV 08/22/20 21:59 25 mls/hr NOW ONE Administration Methylprednisolone Sodium Succinate 125 mg 08/22/20 19:31 08/22/20 20:22 Solu-Medrol IVPUSH 08/22/20 19:32 125 mg ONETIME ONE Administration Departure - Departure Time of Disposition: 23:12 Disposition: Refer to Observation Condition: Good Clinical Impression: Asthma with status asthmaticus - Discharge Information Referrals: Armand Navas MD [Primary Care Provider] - Forms: ED Department Discharge Sepsis Event Note (ED) - Evaluation Sepsis Screening Result: No Definite Risk - Focused Exam Vital Signs: Vital Signs Temp Pulse Resp BP Pulse Ox 08/22/20 20:25 108 H 28 H 99/63 90 L 08/22/20 19:27 35.9 C L 110 H 16 109/68 89 L - My Orders Last 24 Hours: My Active Orders 08/22/20 19:30 RT Post Treatment Assessment [RC] Click to Edit RT Pre-Treatment Assessment [RC] Click to Edit 08/22/20 19:31 Sodium Chloride 0.9% [Saline Flush] 10 ml FLUSH ASDIRECTED PRN Sodium Chloride 0.9% [Saline Flush] 2.5 ml FLUSH ASDIRECTED PRN Saline Lock Insert [OM.PC] Stat 08/22/20 19:41 RT Aerosol Therapy [RC] ASDIRECTED 08/22/20 20:14 EKG 12 Lead [EKG Documentation Completion] [RC] STAT 08/22/20 23:09 Admission Status [Patient Status] [ADT] Stat - Assessment/Plan Last 24 Hours: My Active Orders 08/22/20 19:30 RT Post Treatment Assessment [RC] Click to Edit RT Pre-Treatment Assessment [RC] Click to Edit 08/22/20 19:31 Sodium Chloride 0.9% [Saline Flush] 10 ml FLUSH ASDIRECTED PRN Sodium Chloride 0.9% [Saline Flush] 2.5 ml FLUSH ASDIRECTED PRN Saline Lock Insert [OM.PC] Stat 08/22/20 19:41 RT Aerosol Therapy [RC] ASDIRECTED 08/22/20 20:14 EKG 12 Lead [EKG Documentation Completion] [RC] STAT 08/22/20 23:09 Admission Status [Patient Status] [ADT] Stat
[2020-08-22] MEDS ORDERED: Albuterol 0.083% 2.5 MG/3 ML Neb Soln NEB ONE (19:40)
[2020-08-22] MEDS ORDERED: Magnesium Sulfate (4.06 MEQ/ML) 5 GM/10 ML SDV IV STA (19:42)
[2020-08-22] MEDS ORDERED: Magnesium Sulfate/Water 2 GM/50 ML BAG IV ONE (20:00)
[2020-08-22 20:51] LABS: CARBON DIOXIDE,CO2 26.1 mmol/L (21.0-32.0); POTASSIUM,K 5.2 mmol/L (3.5-5.1)
--- NOTE | 2020-08-22 20:59 | CR ---
INDICATION: Shortness of breath TECHNIQUE: Chest 1 view. COMPARISON: 10/22/2019 FINDINGS: Cardiovascular and mediastinum: Heart size and vasculature are normal in caliber and appearance. Mediastinum is within normal limits. Sternotomy wires noted. Right-sided port a catheter tip in the SVC. Lungs and pleural space: Lungs are clear. No sign of infiltrate or mass. No sign of pleural effusion. No pneumothorax. Bones and soft tissues: No significant findings. IMPRESSION: Unremarkable chest. Dictated by José Miguel Steven MD @ Aug 22 2020 8:57PM Signed by Dr. José Miguel Steven @ Aug 22 2020 8:57PM
[2020-08-22] MEDS ORDERED: Benzonatate 100 MG Cap PO ONE (21:16)
[2020-08-22 21:31] LABS: CORONAVIRUS COVID-19 NAA NEGATIVE (NEGATIVE); INFLUENZA A NAA NEGATIVE (NEGATIVE); INFLUENZA B NAA NEGATIVE (NEGATIVE)
[2020-08-22] MEDS ORDERED: 50% Dextrose in Water 50 ML Syringe IV PRN (23:37)
[2020-08-22] MEDS ORDERED: Glucagon,Human Recombinant 1 MG Vial IM PRN (23:37)
[2020-08-22] MEDS: Lactated Ringers 1,000 ML IV SCH (23:54)
[2020-08-23] MEDS: Montelukast 10 MG Tab PO SCH ×2 (01:29→21:31)
[2020-08-23] MEDS: Heparin Sodium 5,000 Units/ML Vial SUBCUT SCH ×3 (01:30→15:46)
[2020-08-23] MEDS: Albuterol/Ipratropium 3.0-0.5 MG/3 ML Neb Soln NEB SCH ×6 (02:29→21:14)
[2020-08-23] MEDS: Benzonatate 100 MG Cap PO PRN (04:49)
[2020-08-23] MEDS: methylPREDNISolone Sodium Succinate 40 MG/1 ML SDV IVPUSH SCH ×3 (06:44→21:28)
[2020-08-23 06:51] LABS: CARBON DIOXIDE,CO2 20.5 mmol/L (21.0-32.0); POTASSIUM,K 5.3 mmol/L (3.5-5.1)
[2020-08-23] MEDS ORDERED: Insulin Aspart 100 Units/ML 3 ML Pen SUBCUT SCH (07:30)
[2020-08-23] MEDS ORDERED: Acetaminophen 325 MG Tab PO PRN (08:06)
[2020-08-23] MEDS ORDERED: Ondansetron 4 MG/2 ML SDV IVPUSH PRN (08:06)
[2020-08-23] MEDS ORDERED: Albuterol 0.083% 2.5 MG/3 ML Neb Soln NEB PRN (08:08)
--- NOTE | 2020-08-23 08:09 | PCM.HP.2 ---
H&P History of Present Illness - General Date of Service: 08/23/20 Admit Problem/Dx: Admission Diagnosis/Problem Admission Diagnosis/Problem Asthma attack Source of Information: Patient History Limitations: Reports: No Limitations - History of Present Illness Initial Comments - Free Text/Narative: This 50-year-old female with past medical history of CABG, asthma, EKATERINA, diabetic neuropathy, and DM type I presented to the ER with worsening shortness of breath. She reports that approximately 2 weeks ago she started having increasing shortness of breath wheezing and coughing. She reports that she has a history of asthma and uses Breo at home along with nebulizers. She had increased her use of nebulizers at home and felt somewhat improved, she then traveled to [place] continue to use nebulizers significant amount and what she return to [place] she felt she significantly worsened. Throughout this 2-week. She had been tested 3 times for Covid all returned negative. She denies any fevers or chills no loss of smell or taste, no chest pain nausea vomiting or diarrhea. She denies any sinus congestion sore throat or neck pain. She reports that she has been receiving allergy shots through a physician in [place]. She has not received them in a few weeks due to her being ill. She has allergies to cats dogs and dust along with some trees. She previously had rehome to her dogs but continues to have her cat at home. She reports the cat sleeps with her at night. She reports she also takes Singulair which she ran out of her prescription a few weeks ago. She denies any productive cough. But has significant dry hacking cough. She does not smoke, does not use alcohol and no recreational drug use. In the ER no leukocytosis noted potassium 5.2 BUN 21 creatinine 1.5 blood sugar noted to be 50 she was given D50 blood sugars improved. Troponins negative chest x-ray negative. UA negative influenza swab and Covid swab negative. She is treated with nebulizers as well as Solu-Medrol in the ER. She will be admitted for acute asthma exacerbation rib cage Pain Score (Numeric/FACES): 7 - Related Data Allergies/Adverse Reactions: Allergies Allergy/AdvReac Type Severity Reaction Status Date / Time Ollycff-Ily-Qzu Reductase Allergy Other Verified 08/23/20 01:54 Inhibitor Home Medications: Home Meds Estrogens, Conjugated [Premarin] 1.25 mg PO DAILY 10/22/19 [History] Insulin Aspart [NovoLOG] See Protocol SQ ASDIRECTED 10/22/19 [History] Pregabalin [Lyrica] 300 mg PO DAILY 10/22/19 [History] Aspirin 81 mg PO DAILY 08/23/20 [History] DULoxetine [Cymbalta] 08/23/20 [History] Fluticasone/Vilanterol [Breo Ellipta 200-25 MCG Inhalation Kit] 1 inh IH DAILY 08/23/20 [History] Mepolizumab [Nucala] 300 mg SUBCUT .EVERY 4 WEEKS 08/23/20 [History] carvediloL [Carvedilol] 3.125 mg PO DAILY 08/23/20 [History] Past Medical History HEENT History: Reports: Allergic Rhinitis Cardiovascular History: Reports: Bypass, Hypertension, AL Other Cardiovascular History: triple bypass Respiratory History: Reports: Asthma, Sleep Apnea Gastrointestinal History: Reports: None Genitourinary History: Reports: Diabetic Nephropathy POLYSOM TECH History: Reports: Other OB/BYN History: C-sect twice, Hysterectomy Musculoskeletal History: Reports: None Neurological History: Reports: None Psychiatric History: Reports: None Endocrine/Metabolic History: Reports: Diabetes, Type I Hematologic History: Reports: None Immunologic History: Reports: None Oncologic (Cancer) History: Reports: None Dermatologic History: Reports: None - Infectious Disease History Infectious Disease History: Reports: None - Past Surgical History Head Surgeries/Procedures: Reports: None Cardiovascular Surgical History: Reports: Coronary Artery Bypass GI Surgical History: Reports: Appendectomy Musculoskeletal Surgical History: Reports: Arthroscopic Knee, Shoulder Surgery, Other (See Below) Other Musculoskeletal Surgeries/Procedures:: Both sholders Social & Family History - Family History Family Medical History: No Pertinent Family History - Tobacco Use Tobacco Use Status *Q: Never Tobacco User - Caffeine Use Caffeine Use: Reports: None - Recreational Drug Use Recreational Drug Use: No H&P Review of Systems - Review of Systems: Review Of Systems: See Below General: Reports: No Symptoms. Denies: Chills, Malaise, Weakness HEENT: Reports: No Symptoms. Denies: Sinus Congestion Pulmonary: Reports: Shortness of Breath, Wheezing, Cough Cardiovascular: Reports: No Symptoms. Denies: Chest Pain, Palpitations, Dyspnea on Exertion, Lightheadedness Gastrointestinal: Reports: No Symptoms. Denies: Abdominal Pain, Black Stool, Bloody Stool, Nausea, Vomiting Genitourinary: Reports: No Symptoms. Denies: Dysuria, Frequency Musculoskeletal: Reports: No Symptoms. Denies: Neck Pain, Back Pain Skin: Reports: No Symptoms Psychiatric: Reports: No Symptoms. Denies: Confusion Neurological: Reports: No Symptoms. Denies: Confusion Hematologic/Lymphatic: Reports: No Symptoms Immunologic: Reports: No Symptoms Exam - Exam Exam: See Below - Vital Signs Vital Signs: Last Vital Signs Temp 97 F 08/23/20 05:00 Pulse 95 08/23/20 05:00 Resp 20 08/23/20 05:00 BP 118/59 L 08/23/20 05:00 Pulse Ox 91 L 08/23/20 05:00 Weight: 83.461 kg - Exam Quality Assessment: Supplemental Oxygen (1 to 2 L), DVT Prophylaxis General: Alert, Oriented, Cooperative HEENT: Conjunctiva Clear, Mucosa Moist & Anita, Posterior Pharynx Clear Neck: Supple, Trachea Midline Lungs: Decreased Breath Sounds, Rhonchi, Wheezing. No: Normal Respiratory Effort (Dyspnea) GI/Abdominal Exam: Normal Bowel Sounds, Soft, Non-Tender Extremities: Normal Inspection, Normal Range of Motion, Non-Tender, No Pedal Edema Neurological: Cranial Nerves Intact Neuro Extensive - Mental Status: Alert, Oriented x3 Neuro Extensive - Motor, Sensory, Reflexes: CN II-XII Intact Psychiatric: Alert, Normal Affect, Normal Mood - Patient Data Lab Results Last 24 hrs: Laboratory Results - last 24 hr 08/22/20 08/22/20 08/22/20 Range/Units 20:00 20:00 20:00 WBC 4.71 (4.0-11.0) K/uL RBC 4.95 (4.30-5.90) M/uL Hgb 14.7 (12.0-16.0) g/dL Hct 44.9 (36.0-46.0) % MCV 90.7 (80.0-98.0) fL MCH 29.7 (27.0-32.0) pg MCHC 32.7 (31.0-37.0) g/dL RDW Std Deviation 43.6 (28.0-62.0) fl RDW Coeff of Margaret 13 (11.0-15.0) % Plt Count 297 (150-400) K/uL MPV 9.40 (7.40-12.00) fL Neut % (Auto) 38.5 L (48.0-80.0) % Lymph % (Auto) 50.5 H (16.0-40.0) % Kay % (Auto) 7.2 (0.0-15.0) % Eos % (Auto) 2.5 (0.0-7.0) % Baso % (Auto) 1.3 (0.0-1.5) % Neut # (Auto) 1.8 (1.4-5.7) K/uL Lymph # (Auto) 2.4 (0.6-2.4) K/uL Kay # (Auto) 0.3 (0.0-0.8) K/uL Eos # (Auto) 0.1 (0.0-0.7) K/uL Baso # (Auto) 0.1 (0.0-0.1) K/uL Nucleated RBC % 0.0 /100WBC Nucleated RBCs # 0 K/uL VBG pH (7.31-7.41) VBG pCO2 (35-45) mmHG VBG pO2 (30-40) mmHG VBG HCO3 (22-30) mEq/L VBG Total CO2 (41-51) mmol/L VBG Base Excess (-3.0-3.0) Sodium 139 (136-145) mmol/L Potassium 5.2 H (3.5-5.1) mmol/L Chloride 105 (98-107) mmol/L Carbon Dioxide 26.1 (21.0-32.0) mmol/L BUN 21 H (7.0-18.0) mg/dL Creatinine 1.5 H (0.6-1.0) mg/dL Est Cr Clr Drug Dosing 40.38 mL/min Estimated GFR (MDRD) 36.8 ml/min Glucose 50 L (74-106) mg/dL POC Glucose (60-110) mg/dL Calcium 8.6 (8.5-10.1) mg/dL Phosphorus (2.6-4.7) mg/dL Magnesium 2.1 (1.8-2.4) mg/dL Total Bilirubin 0.2 (0.2-1.0) mg/dL AST 27 (15-37) IU/L ALT 19 (14-63) IU/L Alkaline Phosphatase 95 (46-116) U/L Troponin I < 0.050 (0.000-0.056) ng/mL Total Protein 6.3 L (6.4-8.2) g/dL Albumin 3.3 L (3.4-5.0) g/dL Globulin 3.0 (2.6-4.0) g/dL Albumin/Globulin Ratio 1.1 (0.9-1.6) Urine Color Urine Appearance Urine pH (5.0-8.0) Ur Specific Art (1.001-1.035) Urine Protein (NEGATIVE) mg/dL Urine Glucose (UA) (NEGATIVE) mg/dL Urine Ketones (NEGATIVE) mg/dL Urine Occult Blood (NEGATIVE) Urine Nitrite (NEGATIVE) Urine Bilirubin (NEGATIVE) Urine Urobilinogen (<2.0) EU/dL Ur Leukocyte Esterase (NEGATIVE) Influenza Type A RNA (NEGATIVE) Influenza Type B RNA (NEGATIVE) SARS-CoV-2 RNA (DONATO) (NEGATIVE) 08/22/20 08/22/20 08/23/20 Range/Units 20:45 22:59 00:12 WBC (4.0-11.0) K/uL RBC (4.30-5.90) M/uL Hgb (12.0-16.0) g/dL Hct (36.0-46.0) % MCV (80.0-98.0) fL MCH (27.0-32.0) pg MCHC (31.0-37.0) g/dL RDW Std Deviation (28.0-62.0) fl RDW Coeff of Margaret (11.0-15.0) % Plt Count (150-400) K/uL MPV (7.40-12.00) fL Neut % (Auto) (48.0-80.0) % Lymph % (Auto) (16.0-40.0) % Kay % (Auto) (0.0-15.0) % Eos % (Auto) (0.0-7.0) % Baso % (Auto) (0.0-1.5) % Neut # (Auto) (1.4-5.7) K/uL Lymph # (Auto) (0.6-2.4) K/uL Kay # (Auto) (0.0-0.8) K/uL Eos # (Auto) (0.0-0.7) K/uL Baso # (Auto) (0.0-0.1) K/uL Nucleated RBC % /100WBC Nucleated RBCs # K/uL VBG pH 7.31 (7.31-7.41) VBG pCO2 46 H (35-45) mmHG VBG pO2 46 H (30-40) mmHG VBG HCO3 23 (22-30) mEq/L VBG Total CO2 21 L (41-51) mmol/L VBG Base Excess -3.6 L (-3.0-3.0) Sodium (136-145) mmol/L Potassium (3.5-5.1) mmol/L Chloride (98-107) mmol/L Carbon Dioxide (21.0-32.0) mmol/L BUN (7.0-18.0) mg/dL Creatinine (0.6-1.0) mg/dL Est Cr Clr Drug Dosing mL/min Estimated GFR (MDRD) ml/min Glucose (74-106) mg/dL POC Glucose (60-110) mg/dL Calcium (8.5-10.1) mg/dL Phosphorus (2.6-4.7) mg/dL Magnesium (1.8-2.4) mg/dL Total Bilirubin (0.2-1.0) mg/dL AST (15-37) IU/L ALT (14-63) IU/L Alkaline Phosphatase (46-116) U/L Troponin I (0.000-0.056) ng/mL Total Protein (6.4-8.2) g/dL Albumin (3.4-5.0) g/dL Globulin (2.6-4.0) g/dL Albumin/Globulin Ratio (0.9-1.6) Urine Color YELLOW Urine Appearance CLEAR Urine pH 5.5 (5.0-8.0) Ur Specific Art 1.010 (1.001-1.035) Urine Protein NEGATIVE (NEGATIVE) mg/dL Urine Glucose (UA) NEGATIVE (NEGATIVE) mg/dL Urine Ketones NEGATIVE (NEGATIVE) mg/dL Urine Occult Blood NEGATIVE (NEGATIVE) Urine Nitrite NEGATIVE (NEGATIVE) Urine Bilirubin NEGATIVE (NEGATIVE) Urine Urobilinogen 0.2 (<2.0) EU/dL Ur Leukocyte Esterase NEGATIVE (NEGATIVE) Influenza Type A RNA NEGATIVE (NEGATIVE) Influenza Type B RNA NEGATIVE (NEGATIVE) SARS-CoV-2 RNA (DONATO) NEGATIVE (NEGATIVE) 08/23/20 08/23/20 08/23/20 Range/Units 00:13 05:22 05:22 WBC 7.23 (4.0-11.0) K/uL RBC 4.44 (4.30-5.90) M/uL Hgb 12.8 (12.0-16.0) g/dL Hct 40.9 (36.0-46.0) % MCV 92.1 (80.0-98.0) fL MCH 28.8 (27.0-32.0) pg MCHC 31.3 (31.0-37.0) g/dL RDW Std Deviation 44.7 (28.0-62.0) fl RDW Coeff of Margaret 13 (11.0-15.0) % Plt Count 293 (150-400) K/uL MPV 10.00 (7.40-12.00) fL Neut % (Auto) 90.4 H (48.0-80.0) % Lymph % (Auto) 9.1 L (16.0-40.0) % Kay % (Auto) 0.4 (0.0-15.0) % Eos % (Auto) 0.0 (0.0-7.0) % Baso % (Auto) 0.1 (0.0-1.5) % Neut # (Auto) 6.5 H (1.4-5.7) K/uL Lymph # (Auto) 0.7 (0.6-2.4) K/uL Kay # (Auto) 0.0 (0.0-0.8) K/uL Eos # (Auto) 0.0 (0.0-0.7) K/uL Baso # (Auto) 0.0 (0.0-0.1) K/uL Nucleated RBC % 0.0 /100WBC Nucleated RBCs # 0 K/uL VBG pH (7.31-7.41) VBG pCO2 (35-45) mmHG VBG pO2 (30-40) mmHG VBG HCO3 (22-30) mEq/L VBG Total CO2 (41-51) mmol/L VBG Base Excess (-3.0-3.0) Sodium 137 (136-145) mmol/L Potassium 5.3 H (3.5-5.1) mmol/L Chloride 103 (98-107) mmol/L Carbon Dioxide 20.5 L (21.0-32.0) mmol/L BUN 20 H (7.0-18.0) mg/dL Creatinine 1.2 H (0.6-1.0) mg/dL Est Cr Clr Drug Dosing 50.47 mL/min Estimated GFR (MDRD) 47.6 ml/min Glucose 347 H (74-106) mg/dL POC Glucose 157 H (60-110) mg/dL Calcium 8.4 L (8.5-10.1) mg/dL Phosphorus 4.4 (2.6-4.7) mg/dL Magnesium 2.2 (1.8-2.4) mg/dL Total Bilirubin (0.2-1.0) mg/dL AST (15-37) IU/L ALT (14-63) IU/L Alkaline Phosphatase (46-116) U/L Troponin I (0.000-0.056) ng/mL Total Protein (6.4-8.2) g/dL Albumin (3.4-5.0) g/dL Globulin (2.6-4.0) g/dL Albumin/Globulin Ratio (0.9-1.6) Urine Color Urine Appearance Urine pH (5.0-8.0) Ur Specific Art (1.001-1.035) Urine Protein (NEGATIVE) mg/dL Urine Glucose (UA) (NEGATIVE) mg/dL Urine Ketones (NEGATIVE) mg/dL Urine Occult Blood (NEGATIVE) Urine Nitrite (NEGATIVE) Urine Bilirubin (NEGATIVE) Urine Urobilinogen (<2.0) EU/dL Ur Leukocyte Esterase (NEGATIVE) Influenza Type A RNA (NEGATIVE) Influenza Type B RNA (NEGATIVE) SARS-CoV-2 RNA (DONATO) (NEGATIVE) 08/23/20 Range/Units 07:53 WBC (4.0-11.0) K/uL RBC (4.30-5.90) M/uL Hgb (12.0-16.0) g/dL Hct (36.0-46.0) % MCV (80.0-98.0) fL MCH (27.0-32.0) pg MCHC (31.0-37.0) g/dL RDW Std Deviation (28.0-62.0) fl RDW Coeff of Margaret (11.0-15.0) % Plt Count (150-400) K/uL MPV (7.40-12.00) fL Neut % (Auto) (48.0-80.0) % Lymph % (Auto) (16.0-40.0) % Kay % (Auto) (0.0-15.0) % Eos % (Auto) (0.0-7.0) % Baso % (Auto) (0.0-1.5) % Neut # (Auto) (1.4-5.7) K/uL Lymph # (Auto) (0.6-2.4) K/uL Kay # (Auto) (0.0-0.8) K/uL Eos # (Auto) (0.0-0.7) K/uL Baso # (Auto) (0.0-0.1) K/uL Nucleated RBC % /100WBC Nucleated RBCs # K/uL VBG pH (7.31-7.41) VBG pCO2 (35-45) mmHG VBG pO2 (30-40) mmHG VBG HCO3 (22-30) mEq/L VBG Total CO2 (41-51) mmol/L VBG Base Excess (-3.0-3.0) Sodium (136-145) mmol/L Potassium (3.5-5.1) mmol/L Chloride (98-107) mmol/L Carbon Dioxide (21.0-32.0) mmol/L BUN (7.0-18.0) mg/dL Creatinine (0.6-1.0) mg/dL Est Cr Clr Drug Dosing mL/min Estimated GFR (MDRD) ml/min Glucose (74-106) mg/dL POC Glucose 370 H (60-110) mg/dL Calcium (8.5-10.1) mg/dL Phosphorus (2.6-4.7) mg/dL Magnesium (1.8-2.4) mg/dL Total Bilirubin (0.2-1.0) mg/dL AST (15-37) IU/L ALT (14-63) IU/L Alkaline Phosphatase (46-116) U/L Troponin I (0.000-0.056) ng/mL Total Protein (6.4-8.2) g/dL Albumin (3.4-5.0) g/dL Globulin (2.6-4.0) g/dL Albumin/Globulin Ratio (0.9-1.6) Urine Color Urine Appearance Urine pH (5.0-8.0) Ur Specific Art (1.001-1.035) Urine Protein (NEGATIVE) mg/dL Urine Glucose (UA) (NEGATIVE) mg/dL Urine Ketones (NEGATIVE) mg/dL Urine Occult Blood (NEGATIVE) Urine Nitrite (NEGATIVE) Urine Bilirubin (NEGATIVE) Urine Urobilinogen (<2.0) EU/dL Ur Leukocyte Esterase (NEGATIVE) Influenza Type A RNA (NEGATIVE) Influenza Type B RNA (NEGATIVE) SARS-CoV-2 RNA (DONATO) (NEGATIVE) Result Diagrams: 08/23/20 05:22 08/23/20 05:22 Sepsis Event Note - Evaluation Sepsis Screening Result: No Definite Risk - Focused Exam Vital Signs: Vital Signs Temp Pulse Resp BP Pulse Ox Pulse Ox 08/23/20 05:00 97 F 95 20 118/59 L 91 L 08/23/20 01:45 93 L 08/23/20 01:44 93 L 08/23/20 01:00 96 F L 100 20 132/61 93 L 08/22/20 20:25 108 H 28 H 99/63 90 L - Problem List (1) Asthma with status asthmaticus SNOMED Code(s): 391593655 ICD Code: J45.902 - UNSPECIFIED ASTHMA WITH STATUS ASTHMATICUS Status: Acute Current Visit: Yes Qualifiers: Asthma severity: moderate Asthma persistence: persistent Qualified Code(s): J45.42 - Moderate persistent asthma with status asthmaticus (2) CAD (coronary artery disease) SNOMED Code(s): 26647526 ICD Code: I25.10 - ATHSCL HEART DISEASE OF [place] CORONARY ARTERY W/O ANG PCTRS Status: Chronic Current Visit: Yes (3) EKATERINA (obstructive sleep apnea) SNOMED Code(s): 63080695 ICD Code: G47.33 - OBSTRUCTIVE SLEEP APNEA (ADULT) (PEDIATRIC) Status: Chronic Current Visit: Yes (4) Diabetic neuropathy SNOMED Code(s): 359859299, 782837213, 254761641 ICD Code: E11.40 - TYPE 2 DIABETES MELLITUS WITH DIABETIC NEUROPATHY, UNSP Status: Chronic Current Visit: Yes Qualifiers: Diabetes mellitus type: type 1 (5) DM type 1 (diabetes mellitus, type 1) SNOMED Code(s): 65001668 ICD Code: E10.9 - TYPE 1 DIABETES MELLITUS WITHOUT COMPLICATIONS Status: Chronic Current Visit: Yes Qualifiers: Diabetes mellitus complication status: with neurologic complications Diabetes mellitus complication detail: with unspecified neuropathy Qualified Code(s): E10.40 - Type 1 diabetes mellitus with diabetic neuropathy, unspecified (6) Hypertension SNOMED Code(s): 59658603 ICD Code: I10 - ESSENTIAL (PRIMARY) HYPERTENSION Status: Chronic Current Visit: Yes Problem List Initiated/Reviewed/Updated: Yes Orders Last 24hrs: Active Orders 24 hr Category Date Time Status Admission Status [Patient Status] [ADT] Stat ADT 08/22/20 23:09 Active Ambulate [RC] ASDIRECTED Care 08/22/20 23:34 Active Antiembolic Devices [RC] PER UNIT ROUTINE Care 08/22/20 23:36 Active Blood Glucose Check, Bedside [RC] TIDAC Care 08/23/20 08:08 Ordered Intake and Output [RC] QSHIFT Care 08/23/20 08:08 Ordered Oxygen Therapy [RC] PRN Care 08/22/20 23:35 Active Pulse Oximetry [RC] PRN Care 08/22/20 23:35 Active RT Aerosol Therapy [RC] ASDIRECTED Care 08/22/20 23:36 Active VTE/DVT Education [RC] PER UNIT ROUTINE Care 08/22/20 23:35 Active Vital Signs [RC] Q4H Care 08/22/20 23:35 Active Respiratory Care Assess and Treatment [CONS] Routine Cons 08/23/20 08:06 Ordered ADA Diabetic [[place] [employer] Diet] [DIET Diet 08/23/20 Break fast Active ] BASIC METABOLIC PANEL,BMP [CHEM] AM Lab 08/24/20 05:11 Ordered CBC WITH AUTO DIFF [HEME] AM Lab 08/24/20 05:11 Ordered Acetaminophen [TylenoL] Med 08/23/20 08:06 Ordered 650 mg PO Q4H PRN Albuterol [Proventil Neb Soln] Med 08/23/20 08:08 Ordered 2.5 mg NEB Q2H PRN Albuterol/Ipratropium [DuoNeb 3.0-0.5 MG/3 ML] Med 08/23/20 02:00 Active 3 ml NEB Q4HRRT Benzonatate [Tessalon Perles] Med 08/22/20 23:40 Active 100 mg PO TID PRN Dextrose 50% in Water Med 08/22/20 23:37 Active 50 ml IV ASDIRECTED PRN Docusate Sodium [Colace] Med 08/23/20 08:06 Ordered 100 mg PO BID PRN Glucagon,Human Recombinant [GlucaGen] Med 08/22/20 23:37 Active 1 mg IM ASDIRECTED PRN Heparin Sodium Med 08/22/20 23:45 Active 5,000 units SUBCUT Q8H Insulin Aspart [NovoLOG] Med 08/23/20 07:30 Active See Protocol SUBCUT TIDAC Insulin Glarg,Human.Rec.Analog [LantUS Solostar] Med 08/23/20 21:00 Active 6 units SUBCUT BEDTIME Lactated Ringers [Ringers, Lactated] 1,000 ml Med 08/22/20 23:45 Active IV ASDIRECTED Montelukast [Singulair] Med 08/22/20 23:42 Active 10 mg PO BEDTIME Ondansetron [Zofran] Med 08/23/20 08:06 Ordered 4 mg IVPUSH Q4H PRN methylPREDNISolone Sod Succ [Solu-MEDROL] Med 08/23/20 06:00 Active 40 mg IVPUSH Q8H Sequential Compression Device [OM.PC] Per Unit Routine Oth 08/22/20 23:35 Ordered Resuscitation Status Routine Resus Stat 08/22/20 23:34 Ordered Medication Orders Acetaminophen (Tylenol) 650 mg PO Q4H PRN PRN Reason: Pain (Mild 1-3)/fever Albuterol (Proventil Neb Soln) 2.5 mg NEB Q2H PRN PRN Reason: Shortness Of Breath/wheezing Albuterol/Ipratropium (Duoneb 3.0-0.5 Mg/3 Ml) 3 ml NEB Q4HRRT TATIANA Last Admin: 08/23/20 06:01 Dose: 3 ml Documented by: Admin: 08/23/20 02:29 Dose: 3 ml Documented by: PASTGEN Benzonatate (Tessalon Perles) 100 mg PO TID PRN PRN Reason: Cough Last Admin: 08/23/20 04:49 Dose: 100 mg Documented by: TEODORA Dextrose/Water (Dextrose 50% In Water) 50 ml IV ASDIRECTED PRN PRN Reason: Hypoglycemia Docusate Sodium (Colace) 100 mg PO BID PRN PRN Reason: Constipation Glucagon (Glucagen) 1 mg IM ASDIRECTED PRN PRN Reason: Hypoglycemia Heparin Sodium (Porcine) (Heparin Sodium) 5,000 units SUBCUT Q8H TATIANA Last Admin: 08/23/20 01:30 Dose: 5,000 units Documented by: TEODORA Lactated Ringer's (Ringers, Lactated) 1,000 mls @ 125 mls/hr IV ASDIRECTED TATIANA Last Admin: 08/22/20 23:54 Dose: 125 mls/hr Documented by: MURTAZA Insulin Aspart (Novolog) 0 unit SUBCUT TIDAC TATIANA; Protocol Insulin Glargine (Lantus Solostar) 6 units SUBCUT BEDTIME TATIANA Methylprednisolone Sodium Succinate (Solu-Medrol) 40 mg IVPUSH Q8H TATIANA Last Admin: 08/23/20 06:44 Dose: 40 mg Documented by: TEODORA Montelukast Sodium (Singulair) 10 mg PO BEDTIME TATIANA Last Admin: 08/23/20 01:29 Dose: 10 mg Documented by: TEODORA Ondansetron HCl (Zofran) 4 mg IVPUSH Q4H PRN PRN Reason: Nausea Assessment/Plan Comment:: This 50-year-old female admitted with acute asthma exacerbation 1. Acute asthma exacerbation -Oxygen therapy to keep sats greater than 90%. -Solu-Medrol 40 mg IV every 8 hours -Continue DuoNeb scheduled and as needed albuterol -Continue home medicine of Breo inhaler -Tessalon Perles to help with cough -Covid swab negative in the ER -Had extensive conversation with her regarding cats in the house along with sleeping with the cats. As she may have significant asthma exacerbation with limited time for action if she is continue to have exposure without medical treatment. -Start loratadine and continue Singulair at bedtime 2. DM type I -Continue insulin pump she is getting a basal rate of 0.6 units/h, bolus with meals -Blood sugars have remained elevated 300s bicarb was 20.5. We will repeat BMP this afternoon and monitor closely. -Blood sugars likely elevated secondary to steroid use may need to have more aggressive insulin with meals 3. CAD/hypertension/history CABG -Continue Coreg and aspirin -Otherwise stable monitor hypertension 4. Diabetic neuropathy/chronic back pain -Continue Lyrica and Cymbalta VTE prophylaxis: Heparin CODE STATUS: Full code Dispo: 2 days pending improvement
[2020-08-23] MEDS: Lactated Ringers 1,000 ML IV SCH ×2 (09:01→21:40)
[2020-08-23] MEDS: Docusate Sodium 100 MG Cap PO PRN (09:04)
[2020-08-23] MEDS: guaiFENesin 100 MG/5 ML Soln 5 ML UD Cup PO PRN (11:09)
[2020-08-23] MEDS: Insulin Aspart 100 Units/ML 3 ML Pen SUBCUT SCH ×2 (12:12→18:41)
[2020-08-23] MEDS: Loratadine 10 MG Tab PO SCH (15:53)
[2020-08-23] MEDS: Pregabalin 75 MG Cap PO SCH (15:56)
[2020-08-23 16:30] LABS: CARBON DIOXIDE,CO2 19.2 mmol/L (21.0-32.0); POTASSIUM,K 5.6 mmol/L (3.5-5.1)
[2020-08-23] MEDS ORDERED: Insulin Aspart 100 Units/ML 3 ML Pen SUBCUT STA (16:37)
[2020-08-23] MEDS ORDERED: Sodium Chloride 0.9% 1,000 ML IV ONE (16:51)
[2020-08-23] MEDS ORDERED: Glucagon,Human Recombinant 1 MG Vial IM PRN ×2 (18:29→18:30)
[2020-08-23] MEDS ORDERED: 50% Dextrose in Water 50 ML Syringe IVPUSH PRN ×2 (18:29→18:30)
[2020-08-23] MEDS ORDERED: Insulin Aspart 100 Units/ML 3 ML Pen SUBCUT ONE (18:45)
[2020-08-23] MEDS ORDERED: Insulin Glargine,Human Rec. Analog 100 Units/ML 3 ML Pen SUBCUT SCH (21:00)
[2020-08-23] MEDS: Insulin Glargine,Human Rec. Analog 100 Units/ML 3 ML Pen SUBCUT SCH (21:32)
[2020-08-24] MEDS: Heparin Sodium 5,000 Units/ML Vial SUBCUT SCH ×3 (00:28→16:46)
[2020-08-24] MEDS: guaiFENesin 100 MG/5 ML Soln 5 ML UD Cup PO PRN ×3 (00:29→22:16)
[2020-08-24] MEDS: Albuterol/Ipratropium 3.0-0.5 MG/3 ML Neb Soln NEB SCH ×6 (06:14→22:04)
[2020-08-24] MEDS: methylPREDNISolone Sodium Succinate 40 MG/1 ML SDV IVPUSH SCH ×3 (06:47→22:17)
[2020-08-24 07:00] LABS: BLOOD UREA NITROGEN,BUN 19 mg/dL (7.0-18.0); CARBON DIOXIDE,CO2 23.6 mmol/L (21.0-32.0); CHLORIDE,CL 105 mmol/L (98-107); GLUCOSE RANDOM 234 mg/dL (74-106); POTASSIUM,K 4.6 mmol/L (3.5-5.1); SODIUM,NA 138 mmol/L (136-145)
[2020-08-24] MEDS: Insulin Aspart 100 Units/ML 3 ML Pen SUBCUT SCH ×6 (08:17→17:53)
[2020-08-24] MEDS: Aspirin 81 MG Tab.Chew PO SCH (10:01)
[2020-08-24] MEDS: Loratadine 10 MG Tab PO SCH (10:01)
[2020-08-24] MEDS: Carvedilol 3.125 MG Tab PO SCH (10:04)
[2020-08-24] MEDS: Pregabalin 75 MG Cap PO SCH (10:04)
[2020-08-24] MEDS: VILANTEROL INH SCH (10:06)
[2020-08-24] MEDS: FLUTICASONE INH SCH (10:06)
[2020-08-24] MEDS: Docusate Sodium 100 MG Cap PO PRN (10:48)
[2020-08-24] MEDS: Benzonatate 100 MG Cap PO PRN ×2 (10:48→22:15)
[2020-08-24] MEDS ORDERED: Azithromycin 250 MG Tab PO ONE (11:57)
--- NOTE | 2020-08-24 12:58 | PCM.PN ---
- General Info Date of Service: 08/24/20 Admission Dx/Problem (Free Text): Admission Diagnosis/Problem Admission Diagnosis/Problem Asthma attack Subjective Update: Continues to have shortness of breath with significant coughing. Has inspiratory and expiratory wheezing. Producing mild white sputum today. Denies any chest pain. Reports blood sugars feel better pump continues to be off. Diabetic education will come see her today. Functional Status: Reports: Pain Controlled, Tolerating Diet, Ambulating, Urinating - Review of Systems General: Reports: No Symptoms. Denies: Fatigue, Malaise HEENT: Reports: No Symptoms. Denies: Headaches, Sore Throat, Visual Changes Pulmonary: Reports: Cough, Sputum, Wheezing Cardiovascular: Reports: No Symptoms. Denies: Chest Pain Gastrointestinal: Denies: Abdominal Pain, Nausea, Vomiting Genitourinary: Reports: No Symptoms Musculoskeletal: Reports: No Symptoms Skin: Reports: No Symptoms Neurological: Reports: No Symptoms Psychiatric: Reports: No Symptoms - Patient Data Vitals - Most Recent: Last Vital Signs Temp 97.6 F 08/24/20 08:00 Pulse 95 08/24/20 10:04 Resp 20 08/24/20 08:00 BP 130/66 08/24/20 10:04 Pulse Ox 94 L 08/24/20 08:00 Weight - Most Recent: 83.461 kg I&O - Last 24 Hours: Intake & Output 08/23/20 08/24/20 08/24/20 22:59 06:59 14:59 Intake Total 6230 987 2212 Output Total 2300 3000 Balance -740 -2100 1500 Lab Results Last 24 Hours: Laboratory Results - last 24 hr 08/23/20 08/23/20 08/23/20 Range/Units 15:44 17:08 18:10 WBC (4.0-11.0) K/uL RBC (4.30-5.90) M/uL Hgb (12.0-16.0) g/dL Hct (36.0-46.0) % MCV (80.0-98.0) fL MCH (27.0-32.0) pg MCHC (31.0-37.0) g/dL RDW Std Deviation (28.0-62.0) fl RDW Coeff of Margaret (11.0-15.0) % Plt Count (150-400) K/uL MPV (7.40-12.00) fL Neut % (Auto) (48.0-80.0) % Lymph % (Auto) (16.0-40.0) % [place] % (Auto) (0.0-15.0) % Eos % (Auto) (0.0-7.0) % Baso % (Auto) (0.0-1.5) % Neut # (Auto) (1.4-5.7) K/uL Lymph # (Auto) (0.6-2.4) K/uL [place] # (Auto) (0.0-0.8) K/uL Eos # (Auto) (0.0-0.7) K/uL Baso # (Auto) (0.0-0.1) K/uL Nucleated RBC % /100WBC Nucleated RBCs # K/uL Sodium 131 L (136-145) mmol/L Potassium 5.6 H (3.5-5.1) mmol/L Chloride 100 (98-107) mmol/L Carbon Dioxide 19.2 L (21.0-32.0) mmol/L BUN 24 H (7.0-18.0) mg/dL Creatinine 1.1 H (0.6-1.0) mg/dL Est Cr Clr Drug Dosing 55.06 mL/min Estimated GFR (MDRD) 52.6 ml/min Glucose 563 H* (74-106) mg/dL POC Glucose > 500 H 388 H (60-110) mg/dL Calcium 8.6 (8.5-10.1) mg/dL 08/23/20 08/24/20 08/24/20 Range/Units 19:44 05:24 06:13 WBC 7.18 (4.0-11.0) K/uL RBC 3.90 L (4.30-5.90) M/uL Hgb 11.4 L (12.0-16.0) g/dL Hct 35.3 L (36.0-46.0) % MCV 90.5 (80.0-98.0) fL MCH 29.2 (27.0-32.0) pg MCHC 32.3 (31.0-37.0) g/dL RDW Std Deviation 44.3 (28.0-62.0) fl RDW Coeff of Margaret 14 (11.0-15.0) % Plt Count 292 (150-400) K/uL MPV 9.60 (7.40-12.00) fL Neut % (Auto) 76.0 (48.0-80.0) % Lymph % (Auto) 20.2 (16.0-40.0) % [place] % (Auto) 3.8 (0.0-15.0) % Eos % (Auto) 0.0 (0.0-7.0) % Baso % (Auto) 0.0 (0.0-1.5) % Neut # (Auto) 5.5 (1.4-5.7) K/uL Lymph # (Auto) 1.5 (0.6-2.4) K/uL [place] # (Auto) 0.3 (0.0-0.8) K/uL Eos # (Auto) 0.0 (0.0-0.7) K/uL Baso # (Auto) 0.0 (0.0-0.1) K/uL Nucleated RBC % 0.0 /100WBC Nucleated RBCs # 0 K/uL Sodium (136-145) mmol/L Potassium (3.5-5.1) mmol/L Chloride (98-107) mmol/L Carbon Dioxide (21.0-32.0) mmol/L BUN (7.0-18.0) mg/dL Creatinine (0.6-1.0) mg/dL Est Cr Clr Drug Dosing mL/min Estimated GFR (MDRD) ml/min Glucose (74-106) mg/dL POC Glucose 176 H 205 H (60-110) mg/dL Calcium (8.5-10.1) mg/dL 08/24/20 08/24/20 Range/Units 06:13 12:23 WBC (4.0-11.0) K/uL RBC (4.30-5.90) M/uL Hgb (12.0-16.0) g/dL Hct (36.0-46.0) % MCV (80.0-98.0) fL MCH (27.0-32.0) pg MCHC (31.0-37.0) g/dL RDW Std Deviation (28.0-62.0) fl RDW Coeff of Margaret (11.0-15.0) % Plt Count (150-400) K/uL MPV (7.40-12.00) fL Neut % (Auto) (48.0-80.0) % Lymph % (Auto) (16.0-40.0) % [place] % (Auto) (0.0-15.0) % Eos % (Auto) (0.0-7.0) % Baso % (Auto) (0.0-1.5) % Neut # (Auto) (1.4-5.7) K/uL Lymph # (Auto) (0.6-2.4) K/uL [place] # (Auto) (0.0-0.8) K/uL Eos # (Auto) (0.0-0.7) K/uL Baso # (Auto) (0.0-0.1) K/uL Nucleated RBC % /100WBC Nucleated RBCs # K/uL Sodium 138 (136-145) mmol/L Potassium 4.6 (3.5-5.1) mmol/L Chloride 105 (98-107) mmol/L Carbon Dioxide 23.6 (21.0-32.0) mmol/L BUN 19 H (7.0-18.0) mg/dL Creatinine 0.9 (0.6-1.0) mg/dL Est Cr Clr Drug Dosing 67.29 mL/min Estimated GFR (MDRD) > 60.0 ml/min Glucose 234 H (74-106) mg/dL POC Glucose 213 H (60-110) mg/dL Calcium 8.8 (8.5-10.1) mg/dL Med Orders - Current: Current Medications Acetaminophen (Tylenol) 650 mg PO Q4H PRN PRN Reason: Pain (Mild 1-3)/fever Albuterol (Proventil Neb Soln) 2.5 mg NEB Q2H PRN PRN Reason: Shortness Of Breath/wheezing Albuterol/Ipratropium (Duoneb 3.0-0.5 Mg/3 Ml) 3 ml NEB Q4HRRT [facility] Last Admin: 08/24/20 10:10 Dose: 3 ml Documented by: Aspirin (Aspirin) 81 mg PO DAILY [facility] Last Admin: 08/24/20 10:01 Dose: 81 mg Documented by: Azithromycin (Zithromax) 250 mg PO Q24H [facility] Benzonatate (Tessalon Perles) 100 mg PO TID PRN PRN Reason: Cough Last Admin: 08/24/20 10:48 Dose: 100 mg Documented by: Carvedilol (Coreg) 3.125 mg PO DAILY [facility] Last Admin: 08/24/20 10:04 Dose: 3.125 mg Documented by: Dextrose/Water (Dextrose 50% In Water) 50 ml IV ASDIRECTED PRN PRN Reason: Hypoglycemia Dextrose/Water (Dextrose 50% In Water) 50 ml IVPUSH ASDIRECTED PRN PRN Reason: Hypoglycemia Dextrose/Water (Dextrose 50% In Water) 50 ml IVPUSH ASDIRECTED PRN PRN Reason: Hypoglycemia Docusate Sodium (Colace) 100 mg PO BID PRN PRN Reason: Constipation Last Admin: 08/24/20 10:48 Dose: 100 mg Documented by: Glucagon (Glucagen) 1 mg IM ASDIRECTED PRN PRN Reason: Hypoglycemia Glucagon (Glucagen) 1 mg IM ASDIRECTED PRN PRN Reason: Hypoglycemia Glucagon (Glucagen) 1 mg IM ASDIRECTED PRN PRN Reason: Hypoglycemia Guaifenesin (Robitussin) 200 mg PO Q4H PRN PRN Reason: Cough Last Admin: 08/24/20 00:29 Dose: 200 mg Documented by: Heparin Sodium (Porcine) (Heparin Sodium) 5,000 units SUBCUT Q8H [facility] Last Admin: 08/24/20 06:52 Dose: 5,000 units Documented by: Lactated Ringer's (Ringers, Lactated) 1,000 mls @ 125 mls/hr IV ASDIRECTED [facility] Last Admin: 08/23/20 21:40 Dose: 125 mls/hr Documented by: Insulin Aspart (Novolog) 0 unit SUBCUT TIDAC [facility]; Protocol Last Admin: 08/24/20 12:33 Dose: 7 units Documented by: Insulin Aspart (Novolog) 5 unit SUBCUT TIDAC [facility] Last Admin: 08/24/20 12:34 Dose: 5 units Documented by: Insulin Glargine (Lantus Solostar) 13 units SUBCUT BEDTIME [facility] Last Admin: 08/23/20 21:32 Dose: 13 unit Documented by: Loratadine (Claritin) 10 mg PO DAILY [facility] Last Admin: 08/24/20 10:01 Dose: 10 mg Documented by: Methylprednisolone Sodium Succinate (Solu-Medrol) 40 mg IVPUSH Q8H [facility] Last Admin: 08/24/20 06:47 Dose: 40 mg Documented by: Montelukast Sodium (Singulair) 10 mg PO BEDTIME [facility] Last Admin: 08/23/20 21:31 Dose: 10 mg Documented by: Ondansetron HCl (Zofran) 4 mg IVPUSH Q4H PRN PRN Reason: Nausea Fluticasone/Vilanterol [Breo Ellipta 200-25 Mcg Inhalatio 0 each INH DAILY [facility] Last Admin: 08/24/20 10:06 Dose: Not Given Documented by: Pregabalin (Lyrica) 300 mg PO DAILY [facility] Last Admin: 08/24/20 10:04 Dose: 300 mg Documented by: Discontinued Medications Albuterol (Ventolin Hfa) 18 gm INH STAT STA Stop: 08/22/20 19:30 Last Admin: 08/22/20 20:22 Dose: 2 puff Documented by: Albuterol (Ventolin Hfa) Confirm Administered Dose 18 gm .ROUTE .STK-MED ONE Stop: 08/22/20 19:31 Last Admin: 08/22/20 19:41 Dose: Not Given Documented by: Albuterol (Proventil Neb Soln) 10 mg NEB ONETIME ONE Stop: 08/22/20 19:41 Last Admin: 08/22/20 19:47 Dose: 10 mg Documented by: Azithromycin (Zithromax) 500 mg PO Q24H ONE Stop: 08/24/20 11:58 Last Admin: 08/24/20 12:38 Dose: 500 mg Documented by: Benzonatate (Tessalon Perles) 200 mg PO ONETIME ONE Stop: 08/22/20 21:17 Last Admin: 08/22/20 21:23 Dose: 200 mg Documented by: Sodium Chloride (Normal Saline) 1,000 mls @ 1,000 mls/hr IV .Bolus ONE Stop: 08/22/20 20:30 Last Admin: 08/22/20 20:21 Dose: 1,000 mls/hr Documented by: Magnesium Sulfate (Magnesium Sulfate In Water Premix) 2 gm in 50 mls @ 25 mls/hr IV NOW ONE Stop: 08/22/20 21:59 Last Admin: 08/22/20 20:22 Dose: 25 mls/hr Documented by: Sodium Chloride (Normal Saline) 1,000 mls @ 999 mls/hr IV .Bolus ONE Stop: 08/23/20 17:51 Last Admin: 08/23/20 16:59 Dose: 999 mls/hr Documented by: Insulin Aspart (Novolog) 0 unit SUBCUT TIDAC [facility]; Protocol Last Admin: 08/23/20 08:53 Dose: Not Given Documented by: Insulin Aspart (Novolog) 15 unit SUBCUT STAT STA Stop: 08/23/20 16:38 Last Admin: 08/23/20 17:00 Dose: 15 units Documented by: Insulin Aspart (Novolog) 10 unit SUBCUT ONETIME ONE Stop: 08/23/20 18:46 Last Admin: 08/23/20 18:48 Dose: 10 units Documented by: Insulin Glargine (Lantus Solostar) 6 units SUBCUT BEDTIME [facility] Methylprednisolone Sodium Succinate (Solu-Medrol) 125 mg IVPUSH ONETIME ONE Stop: 08/22/20 19:32 Last Admin: 08/22/20 20:22 Dose: 125 mg Documented by: Sodium Chloride (Saline Flush) 10 ml FLUSH ASDIRECTED PRN PRN Reason: Keep Vein Open Sodium Chloride (Saline Flush) 2.5 ml FLUSH ASDIRECTED PRN PRN Reason: Keep Vein Open - Exam Quality Assessment: Supplemental Oxygen (1 to 2 L intermittently), DVT Prophylaxis General: Alert, Oriented, Cooperative Lungs: Rhonchi, Wheezing, Other (Lung sounds improving today but continue to be very coarse with significant cough ). No: Normal Respiratory Effort Cardiovascular: Regular Rate, Regular Rhythm GI/Abdominal Exam: Normal Bowel Sounds, Soft, Non-Tender Extremities: Normal Inspection, Normal Range of Motion, Non-Tender, No Pedal Edema Neurological: No New Focal Deficit Psy/Mental Status: Alert, Normal Affect, Normal Mood Sepsis Event Note - Evaluation Sepsis Screening Result: No Definite Risk - Focused Exam Vital Signs: Vital Signs Temp Pulse Pulse Resp BP BP Pulse Ox 08/24/20 10:04 95 130/66 08/24/20 08:00 97.6 F 95 20 130/66 94 L 08/24/20 06:00 96 08/24/20 04:00 98.1 F 100 16 116/66 97 12/09/20 01:00 97 Pulse Ox 08/24/20 10:04 08/24/20 08:00 08/24/20 06:00 96 08/24/20 04:00 08/24/20 01:00 - Problem List & Annotations (1) Asthma with status asthmaticus SNOMED Code(s): 414377588 Code(s): J45.902 - UNSPECIFIED ASTHMA WITH STATUS ASTHMATICUS Status: Acute Current Visit: Yes Qualifiers: Asthma severity: moderate Asthma persistence: persistent Qualified Code(s): J45.42 - Moderate persistent asthma with status asthmaticus (2) CAD (coronary artery disease) SNOMED Code(s): 34245557 Code(s): I25.10 - ATHSCL HEART DISEASE OF ELEM CORONARY ARTERY W/O ANG PCTRS Status: Chronic Current Visit: Yes (3) EKATERINA (obstructive sleep apnea) SNOMED Code(s): 44514205 Code(s): G47.33 - OBSTRUCTIVE SLEEP APNEA (ADULT) (PEDIATRIC) Status: Chronic Current Visit: Yes (4) Diabetic neuropathy SNOMED Code(s): 144953999, 773933957, 432425322 Code(s): E11.40 - TYPE 2 DIABETES MELLITUS WITH DIABETIC NEUROPATHY, UNSP Status: Chronic Current Visit: Yes Qualifiers: Diabetes mellitus type: type 1 (5) DM type 1 (diabetes mellitus, type 1) SNOMED Code(s): 19909179 Code(s): E10.9 - TYPE 1 DIABETES MELLITUS WITHOUT COMPLICATIONS Status: Chronic Current Visit: Yes Qualifiers: Diabetes mellitus complication status: with neurologic complications Diabetes mellitus complication detail: with unspecified neuropathy Qualified Code(s): E10.40 - Type 1 diabetes mellitus with diabetic neuropathy, unspecified (6) Hypertension SNOMED Code(s): 03939047 Code(s): I10 - ESSENTIAL (PRIMARY) HYPERTENSION Status: Chronic Current Visit: Yes - Problem List Review Problem List Initiated/Reviewed/Updated: Yes - My Orders Last 24 Hours: My Active Orders 08/23/20 13:00 Loratadine [Claritin] 10 mg PO DAILY Pregabalin [Lyrica] 300 mg PO DAILY 08/23/20 13:27 Consult to Medical Center Director [Consult to Diabetic Nurse Specialist] [CONS] Routine 08/23/20 16:50 Communication Order [RC] PRN 08/23/20 21:00 Insulin Glarg,Human.Rec.Analog [LantUS Solostar] 13 units SUBCUT BEDTIME 08/24/20 09:00 Aspirin 81 mg PO DAILY Patient's Own Medication [Ptom] 0 each INH DAILY carvediloL [Coreg] 3.125 mg PO DAILY 08/24/20 11:33 Patient Status [ADT] Stat 08/24/20 11:49 RT Incentive Spirometry [RC] Q1HWA RT Acapella [RESPCARE] Routine 08/25/20 09:00 Azithromycin [Zithromax] 250 mg PO Q24H - Plan Plan:: This 50-year-old female admitted with acute asthma exacerbation 1. Acute asthma exacerbation -Oxygen therapy to keep sats greater than 90%. -Solu-Medrol 40 mg IV every 8 hours -Continue DuoNeb scheduled and as needed albuterol -Continue home medicine of Breo inhaler -Tessalon Perles to help with cough -Covid swab negative in the ER -Had extensive conversation with her regarding cats in the house along with sleeping with the cats. As she may have significant asthma exacerbation with limited time for action if she is continue to have exposure without medical treatment. -Continue loratadine and continue Singulair at bedtime -We will add azithromycin 500 today to 50 for the following days for 4 days. 2. DM type I -Had consistently elevated blood yesterday with one greater than 500. Pump was removed and she was started on injectable insulin. -She will begin 5 units plus sliding scale per meal along with Lantus 13 units. -certified adaptive physical educator came to visit her today blood sugars consistently elevated at home and over 200s. It appears as though she is not giving herself significant amounts of insulin yesterday with elevated blood sugars. -We will keep off the pump while on IV steroids and then will transition back to her pump. This was explained to her and she felt comfortable with this plan. 3. CAD/hypertension/history CABG -Continue Coreg and aspirin -Otherwise stable monitor hypertension 4. Diabetic neuropathy/chronic back pain -Continue Lyrica and Cymbalta VTE prophylaxis: Heparin CODE STATUS: Full code Dispo: 2 days pending improvement
[2020-08-24] MEDS: Lactated Ringers 1,000 ML IV SCH (14:35)
[2020-08-24] MEDS: Insulin Glargine,Human Rec. Analog 100 Units/ML 3 ML Pen SUBCUT SCH (22:02)
[2020-08-24] MEDS: Montelukast 10 MG Tab PO SCH ×2 (22:03→22:15)
[2020-08-25] MEDS: Docusate Sodium 100 MG Cap PO PRN ×2 (00:16→20:04)
[2020-08-25] MEDS: Heparin Sodium 5,000 Units/ML Vial SUBCUT SCH ×3 (00:16→16:09)
[2020-08-25] MEDS: Albuterol/Ipratropium 3.0-0.5 MG/3 ML Neb Soln NEB SCH ×7 (02:37→21:03)
[2020-08-25] MEDS: methylPREDNISolone Sodium Succinate 40 MG/1 ML SDV IVPUSH SCH ×2 (05:56→17:47)
[2020-08-25] MEDS: Lactated Ringers 1,000 ML IV SCH (06:09)
[2020-08-25 06:41] LABS: CARBON DIOXIDE,CO2 28.5 mmol/L (21.0-32.0); POTASSIUM,K 4.3 mmol/L (3.5-5.1)
[2020-08-25] MEDS: Insulin Aspart 100 Units/ML 3 ML Pen SUBCUT SCH ×5 (08:09→16:55)
[2020-08-25] MEDS: Carvedilol 3.125 MG Tab PO SCH (08:10)
[2020-08-25] MEDS: Aspirin 81 MG Tab.Chew PO SCH (08:10)
[2020-08-25] MEDS: Azithromycin 250 MG Tab PO SCH (08:10)
[2020-08-25] MEDS: Loratadine 10 MG Tab PO SCH (08:14)
[2020-08-25] MEDS: Pregabalin 75 MG Cap PO SCH (08:15)
[2020-08-25] MEDS: VILANTEROL INH SCH (08:15)
[2020-08-25] MEDS: FLUTICASONE INH SCH (08:15)
--- NOTE | 2020-08-25 09:39 | PCM.PN ---
- General Info Date of Service: 08/25/20 Admission Dx/Problem (Free Text): Admission Diagnosis/Problem Admission Diagnosis/Problem Asthma attack Subjective Update: Feeling improved today, cough is improving but continues. SOB has improved, breathing improving shortly. No chest pain or palpitations. Functional Status: Reports: Pain Controlled, Tolerating Diet, Ambulating, Urinating - Review of Systems General: Reports: No Symptoms. Denies: Weakness, Fatigue, Malaise Pulmonary: Reports: Shortness of Breath (much improved), Cough, Wheezing Cardiovascular: Reports: No Symptoms. Denies: Chest Pain Gastrointestinal: Reports: No Symptoms. Denies: Abdominal Pain, Nausea, Vomiting Genitourinary: Reports: No Symptoms. Denies: Dysuria, Frequency Musculoskeletal: Reports: No Symptoms Skin: Reports: No Symptoms Neurological: Reports: No Symptoms Psychiatric: Reports: No Symptoms - Patient Data Vitals - Most Recent: Last Vital Signs Temp 97.0 F 08/25/20 07:00 Pulse 97 08/25/20 08:10 Resp 19 08/25/20 07:00 BP 135/76 08/25/20 08:10 Pulse Ox 98 08/25/20 07:00 Weight - Most Recent: 83.461 kg I&O - Last 24 Hours: Intake & Output 08/24/20 08/25/20 08/25/20 22:59 06:59 14:59 Intake Total 3600 2144 Output Total 2700 3100 Balance 900 -956 Lab Results Last 24 Hours: Laboratory Results - last 24 hr 08/24/20 08/24/20 08/24/20 Range/Units 12:23 17:11 22:13 WBC (4.0-11.0) K/uL RBC (4.30-5.90) M/uL Hgb (12.0-16.0) g/dL Hct (36.0-46.0) % MCV (80.0-98.0) fL MCH (27.0-32.0) pg MCHC (31.0-37.0) g/dL RDW Std Deviation (28.0-62.0) fl RDW Coeff of Margaret (11.0-15.0) % Plt Count (150-400) K/uL MPV (7.40-12.00) fL Neut % (Auto) (48.0-80.0) % Lymph % (Auto) (16.0-40.0) % [place] % (Auto) (0.0-15.0) % Eos % (Auto) (0.0-7.0) % Baso % (Auto) (0.0-1.5) % Neut # (Auto) (1.4-5.7) K/uL Lymph # (Auto) (0.6-2.4) K/uL [place] # (Auto) (0.0-0.8) K/uL Eos # (Auto) (0.0-0.7) K/uL Baso # (Auto) (0.0-0.1) K/uL Nucleated RBC % /100WBC Nucleated RBCs # K/uL Sodium (136-145) mmol/L Potassium (3.5-5.1) mmol/L Chloride (98-107) mmol/L Carbon Dioxide (21.0-32.0) mmol/L BUN (7.0-18.0) mg/dL Creatinine (0.6-1.0) mg/dL Est Cr Clr Drug Dosing mL/min Estimated GFR (MDRD) ml/min Glucose (74-106) mg/dL POC Glucose 213 H 149 H 229 H (60-110) mg/dL Calcium (8.5-10.1) mg/dL 08/25/20 08/25/20 08/25/20 Range/Units 05:55 06:02 06:02 WBC 6.24 (4.0-11.0) K/uL RBC 4.02 L (4.30-5.90) M/uL Hgb 11.7 L (12.0-16.0) g/dL Hct 36.7 (36.0-46.0) % MCV 91.3 (80.0-98.0) fL MCH 29.1 (27.0-32.0) pg MCHC 31.9 (31.0-37.0) g/dL RDW Std Deviation 44.1 (28.0-62.0) fl RDW Coeff of Margaret 13 (11.0-15.0) % Plt Count 266 (150-400) K/uL MPV 9.60 (7.40-12.00) fL Neut % (Auto) 74.2 (48.0-80.0) % Lymph % (Auto) 22.3 (16.0-40.0) % [place] % (Auto) 3.5 (0.0-15.0) % Eos % (Auto) 0.0 (0.0-7.0) % Baso % (Auto) 0.0 (0.0-1.5) % Neut # (Auto) 4.6 (1.4-5.7) K/uL Lymph # (Auto) 1.4 (0.6-2.4) K/uL [place] # (Auto) 0.2 (0.0-0.8) K/uL Eos # (Auto) 0.0 (0.0-0.7) K/uL Baso # (Auto) 0.0 (0.0-0.1) K/uL Nucleated RBC % 0.0 /100WBC Nucleated RBCs # 0 K/uL Sodium 137 (136-145) mmol/L Potassium 4.3 (3.5-5.1) mmol/L Chloride 100 (98-107) mmol/L Carbon Dioxide 28.5 (21.0-32.0) mmol/L BUN 17 (7.0-18.0) mg/dL Creatinine 1.0 (0.6-1.0) mg/dL Est Cr Clr Drug Dosing 60.56 mL/min Estimated GFR (MDRD) 58.7 ml/min Glucose 336 H (74-106) mg/dL POC Glucose 286 H (60-110) mg/dL Calcium 8.9 (8.5-10.1) mg/dL Med Orders - Current: Current Medications Acetaminophen (Tylenol) 650 mg PO Q4H PRN PRN Reason: Pain (Mild 1-3)/fever Albuterol (Proventil Neb Soln) 2.5 mg NEB Q2H PRN PRN Reason: Shortness Of Breath/wheezing Last Admin: 08/24/20 15:28 Dose: 2.5 mg Documented by: Albuterol/Ipratropium (Duoneb 3.0-0.5 Mg/3 Ml) 3 ml NEB Q4HRRT [facility] Last Admin: 08/25/20 09:18 Dose: 3 ml Documented by: Aspirin (Aspirin) 81 mg PO DAILY [facility] Last Admin: 08/25/20 08:10 Dose: 81 mg Documented by: Azithromycin (Zithromax) 250 mg PO Q24H [facility] Last Admin: 08/25/20 08:10 Dose: 250 mg Documented by: Benzonatate (Tessalon Perles) 100 mg PO TID PRN PRN Reason: Cough Last Admin: 08/24/20 22:15 Dose: 100 mg Documented by: Carvedilol (Coreg) 3.125 mg PO DAILY [facility] Last Admin: 08/25/20 08:10 Dose: 3.125 mg Documented by: Dextrose/Water (Dextrose 50% In Water) 50 ml IV ASDIRECTED PRN PRN Reason: Hypoglycemia Dextrose/Water (Dextrose 50% In Water) 50 ml IVPUSH ASDIRECTED PRN PRN Reason: Hypoglycemia Dextrose/Water (Dextrose 50% In Water) 50 ml IVPUSH ASDIRECTED PRN PRN Reason: Hypoglycemia Docusate Sodium (Colace) 100 mg PO BID PRN PRN Reason: Constipation Last Admin: 08/25/20 00:16 Dose: 100 mg Documented by: Glucagon (Glucagen) 1 mg IM ASDIRECTED PRN PRN Reason: Hypoglycemia Glucagon (Glucagen) 1 mg IM ASDIRECTED PRN PRN Reason: Hypoglycemia Glucagon (Glucagen) 1 mg IM ASDIRECTED PRN PRN Reason: Hypoglycemia Guaifenesin (Robitussin) 200 mg PO Q4H PRN PRN Reason: Cough Last Admin: 08/24/20 22:16 Dose: 200 mg Documented by: Heparin Sodium (Porcine) (Heparin Sodium) 5,000 units SUBCUT Q8H [facility] Last Admin: 08/25/20 08:08 Dose: 5,000 units Documented by: Lactated Ringer's (Ringers, Lactated) 1,000 mls @ 125 mls/hr IV ASDIRECTED [facility] Last Admin: 08/25/20 06:09 Dose: 125 mls/hr Documented by: Insulin Aspart (Novolog) 0 unit SUBCUT TIDAC [facility]; Protocol Last Admin: 08/25/20 08:09 Dose: 12 units Documented by: Insulin Aspart (Novolog) 5 unit SUBCUT TIDAC [facility] Last Admin: 08/25/20 08:09 Dose: 5 units Documented by: Insulin Glargine (Lantus Solostar) 13 units SUBCUT BEDTIME [facility] Last Admin: 08/24/20 22:02 Dose: 13 unit Documented by: Loratadine (Claritin) 10 mg PO DAILY [facility] Last Admin: 08/25/20 08:14 Dose: 10 mg Documented by: Methylprednisolone Sodium Succinate (Solu-Medrol) 40 mg IVPUSH Q8H [facility] Last Admin: 08/25/20 05:56 Dose: 40 mg Documented by: Montelukast Sodium (Singulair) 10 mg PO BEDTIME [facility] Last Admin: 08/24/20 22:15 Dose: 10 mg Documented by: Ondansetron HCl (Zofran) 4 mg IVPUSH Q4H PRN PRN Reason: Nausea Fluticasone/Vilanterol [Breo Ellipta 200-25 Mcg Inhalatio 0 each INH DAILY [facility] Last Admin: 08/25/20 08:15 Dose: Not Given Documented by: Pregabalin (Lyrica) 300 mg PO DAILY [facility] Last Admin: 08/25/20 08:15 Dose: 300 mg Documented by: Discontinued Medications Albuterol (Ventolin Hfa) 18 gm INH STAT STA Stop: 08/22/20 19:30 Last Admin: 08/22/20 20:22 Dose: 2 puff Documented by: Albuterol (Ventolin Hfa) Confirm Administered Dose 18 gm .ROUTE .STK-MED ONE Stop: 08/22/20 19:31 Last Admin: 08/22/20 19:41 Dose: Not Given Documented by: Albuterol (Proventil Neb Soln) 10 mg NEB ONETIME ONE Stop: 08/22/20 19:41 Last Admin: 08/22/20 19:47 Dose: 10 mg Documented by: Azithromycin (Zithromax) 500 mg PO Q24H ONE Stop: 08/24/20 11:58 Last Admin: 08/24/20 12:38 Dose: 500 mg Documented by: Benzonatate (Tessalon Perles) 200 mg PO ONETIME ONE Stop: 08/22/20 21:17 Last Admin: 08/22/20 21:23 Dose: 200 mg Documented by: Sodium Chloride (Normal Saline) 1,000 mls @ 1,000 mls/hr IV .Bolus ONE Stop: 08/22/20 20:30 Last Admin: 08/22/20 20:21 Dose: 1,000 mls/hr Documented by: Magnesium Sulfate (Magnesium Sulfate In Water Premix) 2 gm in 50 mls @ 25 mls/hr IV NOW ONE Stop: 08/22/20 21:59 Last Admin: 08/22/20 20:22 Dose: 25 mls/hr Documented by: Sodium Chloride (Normal Saline) 1,000 mls @ 999 mls/hr IV .Bolus ONE Stop: 08/23/20 17:51 Last Admin: 08/23/20 16:59 Dose: 999 mls/hr Documented by: Insulin Aspart (Novolog) 0 unit SUBCUT TIDAC [facility]; Protocol Last Admin: 08/23/20 08:53 Dose: Not Given Documented by: Insulin Aspart (Novolog) 15 unit SUBCUT STAT STA Stop: 08/23/20 16:38 Last Admin: 08/23/20 17:00 Dose: 15 units Documented by: Insulin Aspart (Novolog) 10 unit SUBCUT ONETIME ONE Stop: 08/23/20 18:46 Last Admin: 08/23/20 18:48 Dose: 10 units Documented by: Insulin Glargine (Lantus Solostar) 6 units SUBCUT BEDTIME [facility] Methylprednisolone Sodium Succinate (Solu-Medrol) 125 mg IVPUSH ONETIME ONE Stop: 08/22/20 19:32 Last Admin: 08/22/20 20:22 Dose: 125 mg Documented by: Sodium Chloride (Saline Flush) 10 ml FLUSH ASDIRECTED PRN PRN Reason: Keep Vein Open Sodium Chloride (Saline Flush) 2.5 ml FLUSH ASDIRECTED PRN PRN Reason: Keep Vein Open - Exam Quality Assessment: DVT Prophylaxis (Heparin). No: Supplemental Oxygen General: Alert, Oriented Lungs: Normal Respiratory Effort, Wheezing (insp and expiratory), Other (cough continues but is improved. ). No: Rhonchi Cardiovascular: Regular Rate, Regular Rhythm GI/Abdominal Exam: Normal Bowel Sounds, Soft, Non-Tender Back Exam: Normal Inspection, Full Range of Motion Extremities: Normal Inspection, Normal Range of Motion, Non-Tender, No Pedal Edema Wound/Incisions: Healing Well Neurological: No New Focal Deficit Psy/Mental Status: Alert, Normal Affect, Normal Mood Sepsis Event Note - Evaluation Sepsis Screening Result: No Definite Risk - Focused Exam Vital Signs: Vital Signs Temp Pulse Pulse Resp BP BP Pulse Ox 08/25/20 08:10 97 135/76 08/25/20 07:00 97.0 F 111 H 19 131/76 98 08/25/20 03:11 96.5 F L 109 H 17 132/71 96 08/24/20 23:56 97.6 F 99 16 134/68 93 L - Problem List & Annotations (1) Asthma with status asthmaticus SNOMED Code(s): 298747212 Code(s): J45.902 - UNSPECIFIED ASTHMA WITH STATUS ASTHMATICUS Status: Acute Current Visit: Yes Qualifiers: Asthma severity: moderate Asthma persistence: persistent Qualified Code(s): J45.42 - Moderate persistent asthma with status asthmaticus (2) CAD (coronary artery disease) SNOMED Code(s): 29460890 Code(s): I25.10 - ATHSCL HEART DISEASE OF [place] CORONARY ARTERY W/O ANG PCTRS Status: Chronic Current Visit: Yes (3) EKATERINA (obstructive sleep apnea) SNOMED Code(s): 06739914 Code(s): G47.33 - OBSTRUCTIVE SLEEP APNEA (ADULT) (PEDIATRIC) Status: Chronic Current Visit: Yes (4) Diabetic neuropathy SNOMED Code(s): 293852600, 059406368, 214744568 Code(s): E11.40 - TYPE 2 DIABETES MELLITUS WITH DIABETIC NEUROPATHY, UNSP Status: Chronic Current Visit: Yes Qualifiers: Diabetes mellitus type: type 1 (5) DM type 1 (diabetes mellitus, type 1) SNOMED Code(s): 79077880 Code(s): E10.9 - TYPE 1 DIABETES MELLITUS WITHOUT COMPLICATIONS Status: Chronic Current Visit: Yes Qualifiers: Diabetes mellitus complication status: with neurologic complications Diabetes mellitus complication detail: with unspecified neuropathy Qualified Code(s): E10.40 - Type 1 diabetes mellitus with diabetic neuropathy, unspecified (6) Hypertension SNOMED Code(s): 21927537 Code(s): I10 - ESSENTIAL (PRIMARY) HYPERTENSION Status: Chronic Current Visit: Yes - Problem List Review Problem List Initiated/Reviewed/Updated: Yes - My Orders Last 24 Hours: My Active Orders 08/24/20 09:00 Aspirin 81 mg PO DAILY Patient's Own Medication [Ptom] 0 each INH DAILY carvediloL [Coreg] 3.125 mg PO DAILY 08/24/20 11:33 Patient Status [ADT] Stat 08/24/20 11:49 RT Incentive Spirometry [RC] Q1HWA RT Acapella [RESPCARE] Routine 08/25/20 09:00 Azithromycin [Zithromax] 250 mg PO Q24H 08/26/20 05:11 BMP [BASIC METABOLIC PANEL,BMP] [CHEM] AM CBC WITH AUTO DIFF [HEME] AM 08/27/20 05:11 BMP [BASIC METABOLIC PANEL,BMP] [CHEM] AM CBC WITH AUTO DIFF [HEME] AM 08/28/20 05:11 BMP [BASIC METABOLIC PANEL,BMP] [CHEM] AM CBC WITH AUTO DIFF [HEME] AM - Plan Plan:: This 50-year-old female admitted with acute asthma exacerbation 1. Acute asthma exacerbation -Continues to improve no longer needing oxygen -Oxygen therapy to keep sats greater than 90%. -Decrease Solu-Medrol 40 mg IV every 12 hours -Continue DuoNeb scheduled and as needed albuterol -Continue home medicine of Breo inhaler -Quin Brown to help with cough -Continue loratadine and continue Singulair at bedtime -Azithromycin 250 milligrams for 4 days. 2. DM type I -Mee from diabetic education will come back today and help get pump restarted to help manage blood sugars and get her ready for discharge likely tomorrow -Continue 5 units plus sliding scale per meal along with Lantus 13 units until pump has been restarted. 3. CAD/hypertension/history CABG -Continue Coreg and aspirin -Otherwise stable monitor hypertension 4. Diabetic neuropathy/chronic back pain -Continue Lyrica and Cymbalta VTE prophylaxis: Heparin CODE STATUS: Full code Dispo: Likely home in a.m.
[2020-08-25] MEDS: guaiFENesin 100 MG/5 ML Soln 5 ML UD Cup PO PRN ×2 (11:19→20:02)
--- NOTE | 2020-08-25 13:31 | PCM.SN.2 ---
- Free Text/Narrative Note: Kira was placed back on her insulin pump this afternoon with [employer] inform[employer] educator. She was again counseled on the need to be inputting her carbs with each meal so she is getting accurate correction ratio along with checking her blood sugars with her meter. Her meter is now connected to her pump so she will now get the accurate amount of insulin when blood sugars are checked. Basal rates remain at preset levels. At midnight basal rate is set at 0.4 units/h, 3 AM 0.375 units/h, 6 AM 0.6 units/h at 8:00 at night 0.4 units/h. She is a 15:1 ratio of carb correction and 50 mg/dL/unit correction ratio. She was counseled on the importance of inputting all carbs into meter as this appears to be a difficult thing for her looking back at [employer] device log.
[2020-08-25] MEDS ORDERED: Polyethylene Glycol 3350 Powder 17 GM Packet PO ONE (19:32)
[2020-08-25] MEDS: Benzonatate 100 MG Cap PO PRN (20:04)
[2020-08-25] MEDS: Montelukast 10 MG Tab PO SCH (20:04)
[2020-08-26] MEDS: Heparin Sodium 5,000 Units/ML Vial SUBCUT SCH ×2 (00:09→09:04)
[2020-08-26] MEDS: Insulin Aspart 100 Units/ML 3 ML Pen SUBCUT SCH ×3 (00:23→11:27)
[2020-08-26] MEDS: Albuterol/Ipratropium 3.0-0.5 MG/3 ML Neb Soln NEB SCH ×3 (03:04→09:38)
[2020-08-26 05:49] LABS: CARBON DIOXIDE,CO2 31.3 mmol/L (21.0-32.0)
[2020-08-26] MEDS: methylPREDNISolone Sodium Succinate 40 MG/1 ML SDV IVPUSH SCH (06:39)
[2020-08-26] MEDS ORDERED: Codeine/guaiFENesin 10-100 MG/5 ML Syrup 5 ML Cup PO PRN (08:46)
[2020-08-26] MEDS ORDERED: Benzonatate 100 MG Cap PO PRN (08:47)
[2020-08-26] MEDS: Aspirin 81 MG Tab.Chew PO SCH (09:05)
[2020-08-26] MEDS: Pregabalin 75 MG Cap PO SCH (09:07)
[2020-08-26] MEDS: Carvedilol 3.125 MG Tab PO SCH (09:10)
[2020-08-26] MEDS: Loratadine 10 MG Tab PO SCH (09:11)
[2020-08-26] MEDS: Azithromycin 250 MG Tab PO SCH (09:12)
[2020-08-26] MEDS: guaiFENesin 100 MG/5 ML Soln 5 ML UD Cup PO PRN ×2 (09:13→09:16)
[2020-08-26] MEDS: FLUTICASONE INH SCH (09:39)
[2020-08-26] MEDS: VILANTEROL INH SCH (09:39)
--- NOTE | 2020-08-26 12:29 | PCM.DCSUM1 ---
Discharge Summary - Hospital Course Brief History: This 50-year-old female with past medical history of CABG, asthma, EKATERINA, diabetic neuropathy, and DM type I presented to the ER with worsening shortness of breath. She reports that approximately 2 weeks ago she started having increasing shortness of breath wheezing and coughing. She reports that she has a history of asthma and uses Breo at home along with nebulizers. She had increased her use of nebulizers at home and felt somewhat improved, she then traveled to [place] continue to use nebulizers significant amount and what she return to [place] she felt she significantly worsened. Throughout this 2-week. She had been tested 3 times for Covid all returned negative. She denies any fevers or chills no loss of smell or taste, no chest pain nausea vomiting or diarrhea. She denies any sinus congestion sore throat or neck pain. She reports that she has been receiving allergy shots through a physician in [place]. She has not received them in a few weeks due to her being ill. She has allergies to cats dogs and dust along with some trees. She pr eviously had rehome to her dogs but continues to have her cat at home. She reports the cat sleeps with her at night. She reports she also takes Singulair which she ran out of her prescription a few weeks ago. She denies any productive cough. But has significant dry hacking cough. She does not smoke, does not use alcohol and no recreational drug use. In the ER no leukocytosis noted potassium 5.2 BUN 21 creatinine 1.5 blood sugar noted to be 50 she was given D50 blood sugars improved. Troponins negative chest x-ray negative. UA negative influenza swab and Covid swab negative. She is treated with nebulizers as well as Solu-Medrol in the ER. She will be admitted for acute asthma exacerbation Diagnosis: Stroke: No Modified Melissa Scale: No Symptoms at All Modified Melissa Scale Score: 0 - Discharge Data Discharge Date: 08/26/20 Discharge Disposition: Home, Self-Care 01 Condition: Good - Referral to Home Health Primary Care Physician: Armand Navas MD - Discharge Diagnosis/Problem(s) (1) Asthma with status asthmaticus SNOMED Code(s): 991694044 ICD Code: J45.902 - UNSPECIFIED ASTHMA WITH STATUS ASTHMATICUS Status: Acute Current Visit: Yes Qualifiers: Asthma severity: moderate Asthma persistence: persistent Qualified Code(s): J45.42 - Moderate persistent asthma with status asthmaticus (2) CAD (coronary artery disease) SNOMED Code(s): 31392218 ICD Code: I25.10 - ATHSCL HEART DISEASE OF [place] CORONARY ARTERY W/O ANG PCTRS Status: Chronic Current Visit: Yes (3) EKATERINA (obstructive sleep apnea) SNOMED Code(s): 80309662 ICD Code: G47.33 - OBSTRUCTIVE SLEEP APNEA (ADULT) (PEDIATRIC) Status: Chronic Current Visit: Yes (4) Diabetic neuropathy SNOMED Code(s): 658941515, 631261326, 568447676 ICD Code: E11.40 - TYPE 2 DIABETES MELLITUS WITH DIABETIC NEUROPATHY, UNSP Status: Chronic Current Visit: Yes Qualifiers: Diabetes mellitus type: type 1 (5) DM type 1 (diabetes mellitus, type 1) SNOMED Code(s): 13104094 ICD Code: E10.9 - TYPE 1 DIABETES MELLITUS WITHOUT COMPLICATIONS Status: Chronic Current Visit: Yes Qualifiers: Diabetes mellitus complication status: with neurologic complications Diabetes mellitus complication detail: with unspecified neuropathy Qualified Code(s): E10.40 - Type 1 diabetes mellitus with diabetic neuropathy, unspecified (6) Hypertension SNOMED Code(s): 07444738 ICD Code: I10 - ESSENTIAL (PRIMARY) HYPERTENSION Status: Chronic Current Visit: Yes - Patient Summary/Data Consults: Consultations 08/23/20 08:06 Respiratory Care Assess and Treatment [CONS] Routine 08/23/20 13:27 Consult to [facility] [Consult to Diabetic Nurse Specialist] [CONS] Routine Hospital Course: Admission diagnoses: Acute asthma exacerbation with hypoxia Bronchitis Discharge diagnoses: Acute asthma exacerbation with hypoxia resolved Bronchitis Other PMH CAD CABG Hypertension DM type I on insulin pump Diabetic neuropathy Chronic back pain States he was admitted secondary to acute asthma exacerbation, on admission she was noted to be hypoxic. She was treated with nebulizers Solu-Medrol. She slowly improved. She reportedly had been sick for over 2 weeks. Lung sounds were significantly rhonchorous and wheezing for multiple days. She was showing very slow improvement, azithromycin was started. After the initiation of this lung sounds did continue to improve as the Medrol was then decreased on 08/25/2020 and she has continued to do well. She has remained off oxygen for 2 days and has been satting in the mid 90s with this. She continues to have significant cough but this as well is improving and is nonproductive. She has been given guaifenesin/codeine cough syrup which does help lessen the cough. She was counseled heavily on triggers for her asthma. 1 significant trigger is her cat and her cat allergies. She does not want to give him up. She was counseled on not allowing him to sit on her or to sleep with her to lessen exposures. She was also counseled she should not be the one grooming the cat as her or other family members should be doing this to limit again exposures. She is to continue on her Breo and was counseled to continue taking Zyrtec as well as Singulair and to get back on her allergy shots. She will be discharged home today on a azithromycin for 2 more days along with prednisone taper. During her stay blood sugars elevated secondary to steroid administration. She was taken off her pump and given subcu injections blood sugars were better maintained. She was visited by diabetic education to help figure out appropriate dosing for pump. That RN diabetic education did speak with her. Her pump information was downloaded and it appeared she had not been inputting carb counts so she was not receiving appropriate correction dosing. She was counseled on the importance of monitoring blood sugars and inputting blood sugars and carb ratios appropriately so blood sugars could be better maintained. She was restarted on her pump on 08/25/2020 and has been doing well on this mild hyperglycemia is noted but she was checked right after eating. She is very competent in her pump and delivering insulin and monitoring blood sugars. She was counseled she is needing to be more diligent at this. She will have follow- up with her telehealth nurse educator in 1 to 2 weeks. She will be discharged home on same settings of her pump as previous no further changes. - Patient Instructions Diet: Diabetic Diet Activity: As Tolerated Driving: Do Not Drive (while taking codeine) Showering/Bathing: May Shower Notify Provider of: Fever, Increased Pain, Swelling and Redness, Drainage, Nausea and/or Vomiting Other/Special Instructions: Please try staying away from cat as much as possible, you should not be the one to do grooming - Discharge Plan *PRESCRIPTION DRUG MONITORING PROGRAM REVIEWED*: Not Applicable *COPY OF PRESCRIPTION DRUG MONITORING REPORT IN PATIENT KEE: Not Applicable Prescriptions/Med Rec: Cetirizine HCl [All Day Allergy] 10 mg PO DAILY #30 capsule predniSONE [Prednisone] 10 - 40 mg PO DAILY #40 tablet Codeine/guaiFENesin [Robitussin AC] 5 ml PO Q4H PRN #100 ml PRN Reason: Cough Montelukast [Singulair] 10 mg PO BEDTIME #10 tablet Azithromycin [Zithromax] 250 mg PO Q24H #3 tablet Home Medications: Home Meds Estrogens, Conjugated [Premarin] 1.25 mg PO DAILY 10/22/19 [History] Insulin Aspart [NovoLOG] See Protocol SQ ASDIRECTED 10/22/19 [History] Pregabalin [Lyrica] 300 mg PO DAILY 10/22/19 [History] Aspirin 81 mg PO DAILY 08/23/20 [History] Cholecalciferol (Vitamin D3) [Vitamin D3] 2,000 unit PO DAILY 08/23/20 [History] DULoxetine [Cymbalta] 30 mg PO BID 08/23/20 [History] Estrogens, Conjugated [Premarin] 1.25 mg PO DAILY 08/23/20 [History] Fluticasone/Vilanterol [Breo Ellipta 200-25 MCG Inhalation Kit] 1 inh IH DAILY 08/23/20 [History] Mepolizumab [Nucala] 300 mg SUBCUT .EVERY 4 WEEKS 08/23/20 [History] carvediloL [Carvedilol] 3.125 mg PO DAILY 08/23/20 [History] Azithromycin [Zithromax] 250 mg PO Q24H #3 tablet 08/26/20 [Rx] Cetirizine HCl [All Day Allergy] 10 mg PO DAILY #30 capsule 08/26/20 [Rx] Codeine/guaiFENesin [Robitussin AC] 5 ml PO Q4H PRN #100 ml 08/26/20 [Rx] Montelukast [Singulair] 10 mg PO BEDTIME #10 tablet 08/26/20 [Rx] predniSONE [Prednisone] 10 - 40 mg PO DAILY #40 tablet 08/26/20 [Rx] Patient Handouts: Hypoxia, Montelukast oral tablets, Type 1 Diabetes Mellitus, Self Care, Adult, Azithromycin tablets, Cetirizine tablets, Asthma, Adult, [id number], Codeine; Guaifenesin oral solution or syrup, Prednisone tablets, Insulin Pumps Referrals: Armand Navas MD [Primary Care Provider] - 09/02/20 8:30 am - Discharge Summary/Plan Comment DC Time >30 min.: No - Patient Data Vitals - Most Recent: Last Vital Signs Temp 96.0 F L 08/26/20 11:11 Pulse 89 08/26/20 11:11 Resp 22 H 08/26/20 11:11 BP 184/89 H 08/26/20 11:11 Pulse Ox 93 L 08/26/20 11:11 Weight - Most Recent: 83.461 kg I&O - Last 24 hours: Intake & Output 08/25/20 08/26/20 08/26/20 22:59 06:59 14:59 Intake Total 960 420 Output Total 2450 1300 Balance -1490 -880 Lab Results - Last 24 hrs: Laboratory Results - last 24 hr 08/25/20 08/25/20 08/25/20 Range/Units 15:50 16:10 16:36 WBC (4.0-11.0) K/uL RBC (4.30-5.90) M/uL Hgb (12.0-16.0) g/dL Hct (36.0-46.0) % MCV (80.0-98.0) fL MCH (27.0-32.0) pg MCHC (31.0-37.0) g/dL RDW Std Deviation (28.0-62.0) fl RDW Coeff of Margaret (11.0-15.0) % Plt Count (150-400) K/uL MPV (7.40-12.00) fL Neut % (Auto) (48.0-80.0) % Lymph % (Auto) (16.0-40.0) % [place] % (Auto) (0.0-15.0) % Eos % (Auto) (0.0-7.0) % Baso % (Auto) (0.0-1.5) % Neut # (Auto) (1.4-5.7) K/uL Lymph # (Auto) (0.6-2.4) K/uL [place] # (Auto) (0.0-0.8) K/uL Eos # (Auto) (0.0-0.7) K/uL Baso # (Auto) (0.0-0.1) K/uL Nucleated RBC % /100WBC Nucleated RBCs # K/uL Sodium (136-145) mmol/L Potassium (3.5-5.1) mmol/L Chloride (98-107) mmol/L Carbon Dioxide (21.0-32.0) mmol/L BUN (7.0-18.0) mg/dL Creatinine (0.6-1.0) mg/dL Est Cr Clr Drug Dosing mL/min Estimated GFR (MDRD) ml/min Glucose (74-106) mg/dL POC Glucose 48 L 51 L 35 L (60-110) mg/dL Calcium (8.5-10.1) mg/dL 08/25/20 08/25/20 08/25/20 Range/Units 16:58 17:17 18:00 WBC (4.0-11.0) K/uL RBC (4.30-5.90) M/uL Hgb (12.0-16.0) g/dL Hct (36.0-46.0) % MCV (80.0-98.0) fL MCH (27.0-32.0) pg MCHC (31.0-37.0) g/dL RDW Std Deviation (28.0-62.0) fl RDW Coeff of Margaret (11.0-15.0) % Plt Count (150-400) K/uL MPV (7.40-12.00) fL Neut % (Auto) (48.0-80.0) % Lymph % (Auto) (16.0-40.0) % [place] % (Auto) (0.0-15.0) % Eos % (Auto) (0.0-7.0) % Baso % (Auto) (0.0-1.5) % Neut # (Auto) (1.4-5.7) K/uL Lymph # (Auto) (0.6-2.4) K/uL [place] # (Auto) (0.0-0.8) K/uL Eos # (Auto) (0.0-0.7) K/uL Baso # (Auto) (0.0-0.1) K/uL Nucleated RBC % /100WBC Nucleated RBCs # K/uL Sodium (136-145) mmol/L Potassium (3.5-5.1) mmol/L Chloride (98-107) mmol/L Carbon Dioxide (21.0-32.0) mmol/L BUN (7.0-18.0) mg/dL Creatinine (0.6-1.0) mg/dL Est Cr Clr Drug Dosing mL/min Estimated GFR (MDRD) ml/min Glucose (74-106) mg/dL POC Glucose 170 H 129 H 99 (60-110) mg/dL Calcium (8.5-10.1) mg/dL 08/25/20 08/25/20 08/25/20 Range/Units 18:32 19:05 22:23 WBC (4.0-11.0) K/uL RBC (4.30-5.90) M/uL Hgb (12.0-16.0) g/dL Hct (36.0-46.0) % MCV (80.0-98.0) fL MCH (27.0-32.0) pg MCHC (31.0-37.0) g/dL RDW Std Deviation (28.0-62.0) fl RDW Coeff of Margaret (11.0-15.0) % Plt Count (150-400) K/uL MPV (7.40-12.00) fL Neut % (Auto) (48.0-80.0) % Lymph % (Auto) (16.0-40.0) % [place] % (Auto) (0.0-15.0) % Eos % (Auto) (0.0-7.0) % Baso % (Auto) (0.0-1.5) % Neut # (Auto) (1.4-5.7) K/uL Lymph # (Auto) (0.6-2.4) K/uL [place] # (Auto) (0.0-0.8) K/uL Eos # (Auto) (0.0-0.7) K/uL Baso # (Auto) (0.0-0.1) K/uL Nucleated RBC % /100WBC Nucleated RBCs # K/uL Sodium (136-145) mmol/L Potassium (3.5-5.1) mmol/L Chloride (98-107) mmol/L Carbon Dioxide (21.0-32.0) mmol/L BUN (7.0-18.0) mg/dL Creatinine (0.6-1.0) mg/dL Est Cr Clr Drug Dosing mL/min Estimated GFR (MDRD) ml/min Glucose (74-106) mg/dL POC Glucose 146 H 137 H 258 H (60-110) mg/dL Calcium (8.5-10.1) mg/dL 08/25/20 08/26/20 08/26/20 Range/Units 23:32 03:48 05:25 WBC 7.30 (4.0-11.0) K/uL RBC 4.27 L (4.30-5.90) M/uL Hgb 12.7 (12.0-16.0) g/dL Hct 38.3 (36.0-46.0) % MCV 89.7 (80.0-98.0) fL MCH 29.7 (27.0-32.0) pg MCHC 33.2 (31.0-37.0) g/dL RDW Std Deviation 43.3 (28.0-62.0) fl RDW Coeff of Margaret 13 (11.0-15.0) % Plt Count 270 (150-400) K/uL MPV 9.70 (7.40-12.00) fL Neut % (Auto) 57.3 (48.0-80.0) % Lymph % (Auto) 37.0 (16.0-40.0) % [place] % (Auto) 5.5 (0.0-15.0) % Eos % (Auto) 0.1 (0.0-7.0) % Baso % (Auto) 0.1 (0.0-1.5) % Neut # (Auto) 4.2 (1.4-5.7) K/uL Lymph # (Auto) 2.7 H (0.6-2.4) K/uL [place] # (Auto) 0.4 (0.0-0.8) K/uL Eos # (Auto) 0.0 (0.0-0.7) K/uL Baso # (Auto) 0.0 (0.0-0.1) K/uL Nucleated RBC % 0.0 /100WBC Nucleated RBCs # 0 K/uL Sodium (136-145) mmol/L Potassium (3.5-5.1) mmol/L Chloride (98-107) mmol/L Carbon Dioxide (21.0-32.0) mmol/L BUN (7.0-18.0) mg/dL Creatinine (0.6-1.0) mg/dL Est Cr Clr Drug Dosing mL/min Estimated GFR (MDRD) ml/min Glucose (74-106) mg/dL POC Glucose 282 H 309 H (60-110) mg/dL Calcium (8.5-10.1) mg/dL 08/26/20 08/26/20 08/26/20 Range/Units 05:25 06:43 10:07 WBC (4.0-11.0) K/uL RBC (4.30-5.90) M/uL Hgb (12.0-16.0) g/dL Hct (36.0-46.0) % MCV (80.0-98.0) fL MCH (27.0-32.0) pg MCHC (31.0-37.0) g/dL RDW Std Deviation (28.0-62.0) fl RDW Coeff of Margaret (11.0-15.0) % Plt Count (150-400) K/uL MPV (7.40-12.00) fL Neut % (Auto) (48.0-80.0) % Lymph % (Auto) (16.0-40.0) % [place] % (Auto) (0.0-15.0) % Eos % (Auto) (0.0-7.0) % Baso % (Auto) (0.0-1.5) % Neut # (Auto) (1.4-5.7) K/uL Lymph # (Auto) (0.6-2.4) K/uL [place] # (Auto) (0.0-0.8) K/uL Eos # (Auto) (0.0-0.7) K/uL Baso # (Auto) (0.0-0.1) K/uL Nucleated RBC % /100WBC Nucleated RBCs # K/uL Sodium 138 (136-145) mmol/L Potassium 4.0 (3.5-5.1) mmol/L Chloride 101 (98-107) mmol/L Carbon Dioxide 31.3 (21.0-32.0) mmol/L BUN 24 H (7.0-18.0) mg/dL Creatinine 1.0 (0.6-1.0) mg/dL Est Cr Clr Drug Dosing 60.56 mL/min Estimated GFR (MDRD) 58.7 ml/min Glucose 256 H (74-106) mg/dL POC Glucose 238 H 438 H (60-110) mg/dL Calcium 9.0 (8.5-10.1) mg/dL 08/26/20 Range/Units 11:03 WBC (4.0-11.0) K/uL RBC (4.30-5.90) M/uL Hgb (12.0-16.0) g/dL Hct (36.0-46.0) % MCV (80.0-98.0) fL MCH (27.0-32.0) pg MCHC (31.0-37.0) g/dL RDW Std Deviation (28.0-62.0) fl RDW Coeff of Margaret (11.0-15.0) % Plt Count (150-400) K/uL MPV (7.40-12.00) fL Neut % (Auto) (48.0-80.0) % Lymph % (Auto) (16.0-40.0) % [place] % (Auto) (0.0-15.0) % Eos % (Auto) (0.0-7.0) % Baso % (Auto) (0.0-1.5) % Neut # (Auto) (1.4-5.7) K/uL Lymph # (Auto) (0.6-2.4) K/uL [place] # (Auto) (0.0-0.8) K/uL Eos # (Auto) (0.0-0.7) K/uL Baso # (Auto) (0.0-0.1) K/uL Nucleated RBC % /100WBC Nucleated RBCs # K/uL Sodium (136-145) mmol/L Potassium (3.5-5.1) mmol/L Chloride (98-107) mmol/L Carbon Dioxide (21.0-32.0) mmol/L BUN (7.0-18.0) mg/dL Creatinine (0.6-1.0) mg/dL Est Cr Clr Drug Dosing mL/min Estimated GFR (MDRD) ml/min Glucose (74-106) mg/dL POC Glucose 441 H (60-110) mg/dL Calcium (8.5-10.1) mg/dL Med Orders - Current: Current Medications Acetaminophen (Tylenol) 650 mg PO Q4H PRN PRN Reason: Pain (Mild 1-3)/fever Last Admin: 08/26/20 09:12 Dose: 650 mg Documented by: Albuterol (Proventil Neb Soln) 2.5 mg NEB Q2H PRN PRN Reason: Shortness Of Breath/wheezing Last Admin: 08/24/20 15:28 Dose: 2.5 mg Documented by: Albuterol/Ipratropium (Duoneb 3.0-0.5 Mg/3 Ml) 3 ml NEB Q4HRRT [facility] Last Admin: 08/26/20 09:38 Dose: 3 ml Documented by: Aspirin (Aspirin) 81 mg PO DAILY [facility] Last Admin: 08/26/20 09:05 Dose: 81 mg Documented by: Azithromycin (Zithromax) 250 mg PO Q24H [facility] Last Admin: 08/26/20 09:12 Dose: 250 mg Documented by: Benzonatate (Tessalon Perles) 200 mg PO TID PRN PRN Reason: Cough Last Admin: 08/26/20 09:14 Dose: 200 mg Documented by: Carvedilol (Coreg) 3.125 mg PO DAILY [facility] Last Admin: 08/26/20 09:10 Dose: 3.125 mg Documented by: Dextrose/Water (Dextrose 50% In Water) 50 ml IVPUSH ASDIRECTED PRN PRN Reason: Hypoglycemia Last Admin: 08/25/20 16:45 Dose: 50 ml Documented by: Docusate Sodium (Colace) 100 mg PO BID PRN PRN Reason: Constipation Last Admin: 08/25/20 20:04 Dose: 100 mg Documented by: Glucagon (Glucagen) 1 mg IM ASDIRECTED PRN PRN Reason: Hypoglycemia Guaifenesin/Codeine Phosphate (Robitussin Ac) 5 ml PO Q4H PRN PRN Reason: Cough Heparin Sodium (Porcine) (Heparin Sodium) 5,000 units SUBCUT Q8H [facility] Last Admin: 08/26/20 09:04 Dose: Not Given Documented by: Insulin Aspart (Novolog) 0 unit SUBCUT TIDAC [facility] Last Admin: 08/26/20 11:27 Dose: 7.6 units Documented by: Loratadine (Claritin) 10 mg PO DAILY [facility] Last Admin: 08/26/20 09:11 Dose: 10 mg Documented by: Methylprednisolone Sodium Succinate (Solu-Medrol) 40 mg IVPUSH Q12H [facility] Last Admin: 08/26/20 06:39 Dose: 40 mg Documented by: Montelukast Sodium (Singulair) 10 mg PO BEDTIME [facility] Last Admin: 08/25/20 20:04 Dose: 10 mg Documented by: Ondansetron HCl (Zofran) 4 mg IVPUSH Q4H PRN PRN Reason: Nausea Fluticasone/Vilanterol [Breo Ellipta 200-25 Mcg Inhalatio 0 each INH DAILY [facility] Last Admin: 08/26/20 09:39 Dose: Not Given Documented by: Pregabalin (Lyrica) 300 mg PO DAILY [facility] Last Admin: 08/26/20 09:07 Dose: 300 mg Documented by: Discontinued Medications Albuterol (Ventolin Hfa) 18 gm INH STAT STA Stop: 08/22/20 19:30 Last Admin: 08/22/20 20:22 Dose: 2 puff Documented by: Albuterol (Ventolin Hfa) Confirm Administered Dose 18 gm .ROUTE .STK-MED ONE Stop: 08/22/20 19:31 Last Admin: 08/22/20 19:41 Dose: Not Given Documented by: Albuterol (Proventil Neb Soln) 10 mg NEB ONETIME ONE Stop: 08/22/20 19:41 Last Admin: 08/22/20 19:47 Dose: 10 mg Documented by: Azithromycin (Zithromax) 500 mg PO Q24H ONE Stop: 08/24/20 11:58 Last Admin: 08/24/20 12:38 Dose: 500 mg Documented by: Benzonatate (Tessalon Perles) 200 mg PO ONETIME ONE Stop: 08/22/20 21:17 Last Admin: 08/22/20 21:23 Dose: 200 mg Documented by: Benzonatate (Tessalon Perles) 100 mg PO TID PRN PRN Reason: Cough Last Admin: 08/25/20 20:04 Dose: 100 mg Documented by: Dextrose/Water (Dextrose 50% In Water) 50 ml IV ASDIRECTED PRN PRN Reason: Hypoglycemia Dextrose/Water (Dextrose 50% In Water) 50 ml IVPUSH ASDIRECTED PRN PRN Reason: Hypoglycemia Glucagon (Glucagen) 1 mg IM ASDIRECTED PRN PRN Reason: Hypoglycemia Glucagon (Glucagen) 1 mg IM ASDIRECTED PRN PRN Reason: Hypoglycemia Guaifenesin (Robitussin) 200 mg PO Q4H PRN PRN Reason: Cough Last Admin: 08/26/20 09:16 Dose: 200 mg Documented by: Sodium Chloride (Normal Saline) 1,000 mls @ 1,000 mls/hr IV .Bolus ONE Stop: 08/22/20 20:30 Last Admin: 08/22/20 20:21 Dose: 1,000 mls/hr Documented by: Magnesium Sulfate (Magnesium Sulfate In Water Premix) 2 gm in 50 mls @ 25 mls/hr IV NOW ONE Stop: 08/22/20 21:59 Last Admin: 08/22/20 20:22 Dose: 25 mls/hr Documented by: Lactated Ringer's (Ringers, Lactated) 1,000 mls @ 125 mls/hr IV ASDIRECTED [facility] Last Admin: 08/25/20 06:09 Dose: 125 mls/hr Documented by: Sodium Chloride (Normal Saline) 1,000 mls @ 999 mls/hr IV .Bolus ONE Stop: 08/23/20 17:51 Last Admin: 08/23/20 16:59 Dose: 999 mls/hr Documented by: Insulin Asp[facility] ([facility]olog) [facility]; Protocol Last Admin: 08/23/20 08:53 Dose: Not Given Documented by: Insulin Aspart (Novolog) 0 unit SUBCUT TIDAC [facility]; Protocol Last Admin: 08/25/20 11:54 Dose: 8 units Documented by: Insulin Aspart (Novolog) 15 unit SUBCUT STAT STA Stop: 08/23/20 16:38 Last Admin: 08/23/20 17:00 Dose: 15 units Documented by: Insulin Aspart (Novolog) 10 unit SUBCUT ONETIME ONE Stop: 08/23/20 18:46 Last Admin: 08/23/20 18:48 Dose: 10 units Documented by: [facility]ulin [facility] ([facility]olog) [facility] Last Admin: 08/25/20 11:55 Dose: 5 units Documented by: Insulin Glargine (Lantus Solostar) 6 units SUBCUT BEDTIME [facility] Insulin Glargine (Lantus Solostar) 13 units SUBCUT BEDTIME [facility] Last Admin: 08/24/20 22:02 Dose: 13 unit Documented by: Methylprednisolone Sodium Succinate (Solu-Medrol) 125 mg IVPUSH ONETIME ONE Stop: 08/22/20 19:32 Last Admin: 08/22/20 20:22 Dose: 125 mg Documented by: Methylprednisolone Sodium Succinate (Solu-Medrol) 40 mg IVPUSH Q8H [facility] Last Admin: 08/25/20 05:56 Dose: 40 mg Documented by: Polyethylene Glycol (Miralax) 17 gm PO ONETIME ONE Stop: 08/25/20 19:33 Last Admin: 08/25/20 20:02 Dose: 17 gm Documented by: Sodium Chloride (Saline Flush) 10 ml FLUSH ASDIRECTED PRN PRN Reason: Keep Vein Open Sodium Chloride (Saline Flush) 2.5 ml FLUSH ASDIRECTED PRN PRN Reason: Keep Vein Open - Exam General: Reports: Alert, Oriented, Cooperative, No Acute Distress Lungs: Reports: Normal Respiratory Effort, Wheezing (mild and much improved si nee admission) Cardiovascular: Reports: Regular Rate, Regular Rhythm GI/Abdominal Exam: Normal Bowel Sounds, Soft, Non-Tender Back Exam: Reports: Normal Inspection, Full Range of Motion Wound/Incisions: Reports: Healing Well Neurological: Reports: No New Focal Deficit Psy/Mental Status: Reports: Alert, Normal Affect, Normal Mood
== END 2020-08-26 13:10 | disposition home or self-care (01) | DRG 203 ==
LOC: MW.ED 19:10 → MW.MS 23:09 → OBSVTOIN 08-24 11:33
PROVIDERS: ADMIT Student in an Organized Health Care Education/Training Program; ATTEND Student in an Organized Health Care Education/Training Program
DX: J45.42 Moderate persistent asthma with status asthmaticus (principal); G47.33 Obstructive sleep apnea (adult) (pediatric); Z20.828 Contact with and (suspected) exposure to other viral communicable diseases; I25.10 Atherosclerotic heart disease of native coronary artery without angina pectoris; I10 Essential (primary) hypertension; E10.40 Type 1 diabetes mellitus with diabetic neuropathy, unspecified; G89.29 Other chronic pain; M54.9 Dorsalgia, unspecified; J30.9 Allergic rhinitis, unspecified; I25.2 Old myocardial infarction; Z79.52 Long term (current) use of systemic steroids; Z95.1 Presence of aortocoronary bypass graft; Z79.899 Other long term (current) drug therapy; Z79.82 Long term (current) use of aspirin; Z88.8 Allergy status to other drugs, medicaments and biological substances; Z90.710 Acquired absence of both cervix and uterus; Z90.49 Acquired absence of other specified parts of digestive tract; Z98.890 Other specified postprocedural states
CPT/HCPCS: 0240U; 36415; 71045; 71045-26; 80048; 80053; 81003; 82803; 82962; 83735; 84100; 84484; 85025; 93005; 93010; 94640; 96365; 96366; 96372; 96375; 96376; 99283; 99285-25; A9270-GY; G0378; J1644; J1815-GY; J2920; J2930; J3475; J3535-GY; J7030; J7120; J7620-GY

== ENCOUNTER 2020-10-25 00:52 | Emergency (ER) | payer BC, MEDICARE ==
--- NOTE | 2020-10-25 01:01 | EDM.PDOC ---
ED HPI GENERAL MEDICAL PROBLEM - General Stated Complaint: HYPOGLYCEMIA Time Seen by Provider: 10/25/20 00:56 Source of Information: Reports: Patient, EMS, Family History Limitations: Reports: Altered Mental Status - History of Present Illness INITIAL COMMENTS - FREE TEXT/NARRATIVE: 50-year-old female with history of type 1 diabetes, HTN, asthma, CAD, UTI, chronic back pain, hypoglycemia was brought in by ambulance for decreased LOC this evening. Her last known well was at 8 PM when she went to sleep. Her found her groaning in bed just prior to arrival and clammy, he suspected her blood sugar was low, he checked her blood sugar and it was below 20, he gave her IM glucagon. By the time EMS arrived, her blood sugar = 50, EMS administered dextrose under her tongue which improved her blood sugar to 72. She was eating a sandwich upon arrival in the ER. Patient has a history of chronic low back pain, today she complains of 10/10 pain to her lumbar spine, eating, constant, sharp, no alleviating or exacerbating factors. She also has a history of asthma and she is allergic to her dog and her cat, she states her dyspnea feels typical of her asthma. ROS: A 10-point review of systems, other than pertinent positives and negatives as stated per HPI, is otherwise negative Past medical history: No additional pertinent history Past Surgical history: No additional pertinent history Social history: No additional pertinent history Family history: No additional pertinent history PHYSICAL EXAM General: AOx4, GCS = 15, No distress HEENT: dry mucous membrane Neck: supple, no meningismus, no Kernig or Brudzinski Cardiac: S1S2 RRR Respiratory: deminished B/L, expiratory wheezing Abdomen: Soft, nontender, no rebound or guarding, nondistended, no pulsatile mass. Back: tender to lumbar spine, no ttp to C/T spine. Musculoskeletal: NVI distally, no deformity Neuro: No focal deficits. - Related Data Allergies Allergy/AdvReac Type Severity Reaction Status Date / Time [id number]-[id number]-Xfs Reductase Allergy Other Verified 10/25/20 01:24 Inhibitor Home Meds: Home Meds Estrogens, Conjugated [Premarin] 1.25 mg PO DAILY 10/22/19 [History] Insulin Aspart [NovoLOG] See Protocol SQ ASDIRECTED 10/22/19 [History] Pregabalin [Lyrica] 300 mg PO DAILY 10/22/19 [History] Aspirin 81 mg PO DAILY 08/23/20 [History] Cholecalciferol (Vitamin D3) [Vitamin D3] 2,000 unit PO DAILY 08/23/20 [History] DULoxetine [Cymbalta] 30 mg PO BID 08/23/20 [History] Estrogens, Conjugated [Premarin] 1.25 mg PO DAILY 08/23/20 [History] Fluticasone/Vilanterol [Breo Ellipta 200-25 MCG Inhalation Kit] 1 inh IH DAILY 08/23/20 [History] Mepolizumab [Nucala] 300 mg SUBCUT .EVERY 4 WEEKS 08/23/20 [History] carvediloL [Carvedilol] 3.125 mg PO DAILY 08/23/20 [History] Azithromycin [Zithromax] 250 mg PO Q24H #3 tablet 08/26/20 [Rx] Cetirizine HCl [All Day Allergy] 10 mg PO DAILY #30 capsule 08/26/20 [Rx] Codeine/guaiFENesin [Robitussin AC] 5 ml PO Q4H PRN #100 ml 08/26/20 [Rx] Montelukast [Singulair] 10 mg PO BEDTIME #10 tablet 08/26/20 [Rx] predniSONE [Prednisone] 10 - 40 mg PO DAILY #40 tablet 08/26/20 [Rx] Azithromycin [Zithromax] 250 mg PO DAILY #6 tab 10/25/20 [Rx] predniSONE [Prednisone] 50 mg PO DAILY #5 tablet 10/25/20 [Rx] Past Medical History HEENT History: Reports: Allergic Rhinitis Cardiovascular History: Reports: Bypass, Hypertension, [place] Other Cardiovascular History: triple bypass Respiratory History: Reports: Asthma, Sleep Apnea Gastrointestinal History: Reports: None Genitourinary History: Reports: Diabetic Nephropathy DIRECTOR MEETINGS History: Reports: Other DIRECTOR MEETINGS History: C-sect twice, Hysterectomy Musculoskeletal History: Reports: None Neurological History: Reports: None Psychiatric History: Reports: None Endocrine/Metabolic History: Reports: Diabetes, Type I Hematologic History: Reports: None Immunologic History: Reports: None Oncologic (Cancer) History: Reports: None Dermatologic History: Reports: None - Infectious Disease History Infectious Disease History: Reports: None - Past Surgical History Head Surgeries/Procedures: Reports: None Cardiovascular Surgical History: Reports: Coronary Artery Bypass GI Surgical History: Reports: Appendectomy Musculoskeletal Surgical History: Reports: Arthroscopic Knee, Shoulder Surgery, Other (See Below) Other Musculoskeletal Surgeries/Procedures:: Both sholders Social & Family History - Family History Family Medical History: No Pertinent Family History - Caffeine Use Caffeine Use: Reports: None ED ROS GENERAL - Review of Systems Review Of Systems: See Below (see dictation) ED EXAM, GENERAL - Physical Exam Exam: See Below (see dictation) #1 Interpretation EKG Interpretation Comments: Heart rate = 95 bpm, normal sinus rhythm, normal QRS interval, no STEMI. EKG and rhythm strip interpreted by me at 0107 Course - Vital Signs Last Recorded V/S: Last Vital Signs Temp 95.6 F L 10/25/20 00:52 Pulse 99 10/25/20 05:15 Resp 18 10/25/20 05:15 BP 105/55 L 10/25/20 05:15 Pulse Ox 98 10/25/20 05:15 - Orders/Labs/Meds Orders: Active Orders 24 hr Category Date Time Status Accu Check [Blood Glucose Check, Bedside] [RC] Q1H Care 10/25/20 00:56 Active Cardiac Monitoring [RC] . DIRECTED Care 10/25/20 00:57 Active EKG 12 Lead [EKG Documentation Completion] [RC] STAT Care 10/25/20 00:57 Active RT Aerosol Therapy [RC] ASDIRECTED Care 10/25/20 01:34 Active RT Aerosol Therapy [RC] ASDIRECTED Care 10/25/20 03:44 Active Pulse Oximetry Continuous Monitoring [OM.PC] CONTINUOUS Oth 10/25/20 01:00 Ordered Labs: Laboratory Tests 10/25/20 10/25/20 10/25/20 Range/Units 00:59 01:00 01:00 WBC 10.67 (4.0-11.0) K/uL RBC 4.15 L (4.30-5.90) M/uL Hgb 12.4 (12.0-16.0) g/dL Hct 37.4 (36.0-46.0) % MCV 90.1 (80.0-98.0) fL MCH 29.9 (27.0-32.0) pg MCHC 33.2 (31.0-37.0) g/dL RDW Std Deviation 40.9 (28.0-62.0) fl RDW Coeff of Margaret 13 (11.0-15.0) % Plt Count 259 (150-400) K/uL MPV 9.30 (7.40-12.00) fL Neut % (Auto) 77.3 (48.0-80.0) % Lymph % (Auto) 15.7 L (16.0-40.0) % [place] % (Auto) 6.2 (0.0-15.0) % Eos % (Auto) 0.6 (0.0-7.0) % Baso % (Auto) 0.2 (0.0-1.5) % Neut # (Auto) 8.3 H (1.4-5.7) K/uL Lymph # (Auto) 1.7 (0.6-2.4) K/uL Haskell # (Auto) 0.7 (0.0-0.8) K/uL Eos # (Auto) 0.1 (0.0-0.7) K/uL Baso # (Auto) 0.0 (0.0-0.1) K/uL Sodium 144 (136-145) mmol/L Potassium 3.8 (3.5-5.1) mmol/L Chloride 107 (98-107) mmol/L Carbon Dioxide 29.2 (21.0-32.0) mmol/L BUN 24 H (7.0-18.0) mg/dL Creatinine 1.1 H (0.6-1.0) mg/dL Est Cr Clr Drug Dosing 55.06 mL/min Estimated GFR (MDRD) 52.6 ml/min Glucose 129 H (74-106) mg/dL POC Glucose 159 H (60-110) mg/dL Calcium 8.6 (8.5-10.1) mg/dL Total Bilirubin 0.2 (0.2-1.0) mg/dL AST 20 (15-37) IU/L ALT 29 (14-63) IU/L Alkaline Phosphatase 85 (46-116) U/L Troponin I < 0.050 (0.000-0.056) ng/mL Total Protein 6.5 (6.4-8.2) g/dL Albumin 3.3 L (3.4-5.0) g/dL Globulin 3.2 (2.6-4.0) g/dL Albumin/Globulin Ratio 1.0 (0.9-1.6) Urine Color Urine Appearance Urine pH (5.0-8.0) Ur Specific [place] (1.001-1.035) Urine Protein (NEGATIVE) mg/dL Urine Glucose (UA) (NEGATIVE) mg/dL Urine Ketones (NEGATIVE) mg/dL Urine Occult Blood (NEGATIVE) Urine Nitrite (NEGATIVE) Urine Bilirubin (NEGATIVE) Urine Urobilinogen (<2.0) EU/dL Ur Leukocyte Esterase (NEGATIVE) Urine RBC (0-2/HPF) Urine WBC (0-5/HPF) Ur Epithelial Cells (NONE-FEW) Amorphous Sediment (NEGATIVE) Urine Bacteria (NEGATIVE) Urine Mucus (NONE-MOD) SARS-CoV-2 RNA (DONATO) (NEGATIVE) 10/25/20 10/25/20 10/25/20 Range/Units 01:05 02:54 03:36 WBC (4.0-11.0) K/uL RBC (4.30-5.90) M/uL Hgb (12.0-16.0) g/dL Hct (36.0-46.0) % MCV (80.0-98.0) fL MCH (27.0-32.0) pg MCHC (31.0-37.0) g/dL RDW Std Deviation (28.0-62.0) fl RDW Coeff of Margaret (11.0-15.0) % Plt Count (150-400) K/uL MPV (7.40-12.00) fL Neut % (Auto) (48.0-80.0) % Lymph % (Auto) (16.0-40.0) % Haskell % (Auto) (0.0-15.0) % Eos % (Auto) (0.0-7.0) % Baso % (Auto) (0.0-1.5) % Neut # (Auto) (1.4-5.7) K/uL Lymph # (Auto) (0.6-2.4) K/uL Haskell # (Auto) (0.0-0.8) K/uL Eos # (Auto) (0.0-0.7) K/uL Baso # (Auto) (0.0-0.1) K/uL Sodium (136-145) mmol/L Potassium (3.5-5.1) mmol/L Chloride (98-107) mmol/L Carbon Dioxide (21.0-32.0) mmol/L BUN (7.0-18.0) mg/dL Creatinine (0.6-1.0) mg/dL Est Cr Clr Drug Dosing mL/min Estimated GFR (MDRD) ml/min Glucose (74-106) mg/dL POC Glucose 248 H (60-110) mg/dL Calcium (8.5-10.1) mg/dL Total Bilirubin (0.2-1.0) mg/dL AST (15-37) IU/L ALT (14-63) IU/L Alkaline Phosphatase (46-116) U/L Troponin I (0.000-0.056) ng/mL Total Protein (6.4-8.2) g/dL Albumin (3.4-5.0) g/dL Globulin (2.6-4.0) g/dL Albumin/Globulin Ratio (0.9-1.6) Urine Color YELLOW Urine Appearance SLT CLOUDY Urine pH 7.0 (5.0-8.0) Ur Specific [place] 1.020 (1.001-1.035) Urine Protein TRACE H (NEGATIVE) mg/dL Urine Glucose (UA) 100 H (NEGATIVE) mg/dL Urine Ketones NEGATIVE (NEGATIVE) mg/dL Urine Occult Blood NEGATIVE (NEGATIVE) Urine Nitrite NEGATIVE (NEGATIVE) Urine Bilirubin NEGATIVE (NEGATIVE) Urine Urobilinogen 0.2 (<2.0) EU/dL Ur Leukocyte Esterase NEGATIVE (NEGATIVE) Urine RBC 0-2 (0-2/HPF) Urine WBC 0-2 (0-5/HPF) Ur Epithelial Cells FEW (NONE-FEW) Amorphous Sediment LIGHT (NEGATIVE) Urine Bacteria 2+ H (NEGATIVE) Urine Mucus LIGHT (NONE-MOD) SARS-CoV-2 RNA (DONATO) NEGATIVE (NEGATIVE) Meds: Medications Discontinued Medications Generic Name Dose Route Start Last Admin Trade Name Freq PRN Reason Stop Dose Admin Albuterol 15 mg 10/25/20 03:44 10/25/20 03:54 Proventil Neb Soln NEB 10/25/20 03:45 15 mg ONETIME ONE Administration Albuterol/Ipratropium 3 ml 10/25/20 01:34 10/25/20 02:00 Duoneb 3.0-0.5 Mg/3 Ml NEB 10/25/20 01:35 3 ml ONETIME ONE Administration Lactated Ringer's 1,000 mls @ 999 mls/hr 10/25/20 01:58 10/25/20 02:00 Ringers, Lactated IV 10/25/20 02:58 999 mls/hr .BOLUS ONE Administration Iopamidol 75 ml 10/25/20 06:05 10/25/20 06:07 Isovue Multipack-370 (76%) IVPUSH 10/25/20 06:06 75 ml ONETIME STA Administration Methylprednisolone Sodium Succinate 125 mg 10/25/20 01:34 10/25/20 01:56 Solu-Medrol IVPUSH 10/25/20 01:35 125 mg ONETIME ONE Administration Morphine Sulfate 4 mg 10/25/20 01:58 10/25/20 02:03 Morphine IVPUSH 10/25/20 01:59 4 mg ONETIME ONE Administration Morphine Sulfate 4 mg 10/25/20 03:47 10/25/20 03:53 Morphine IVPUSH 10/25/20 03:48 4 mg ONETIME ONE Administration - Re-Assessments/Exams Free Text/Narrative Re-Assessment/Exam: 10/25/20 12:59 Recheck blood sugar = 159 10/25/20 01:46 Ordered DuoNeb treatment and Solu-Medrol 125 mg. 10/25/20 03:34 After 1 breathing treatment, she is still desat to 88% on RA, will be placed on 2 L nasal cannula, she is still deminished with exp wheezing, will give 1hr continuous albuterol treatment and perform CT angio chest. 10/25/20 06:49 After 1 hour continuous albuterol treatment, her respiratory status improved, she is satting 95% on room air. I performed a repeat exam and did not appreciate new abnormal findings. Patient exhibits normal vital signs. I advised the patient to return to the ER for reevaluation if symptoms worsened, including fever, worsening pain, or any other worrisome symptoms. I instructed the patient to follow up with their PCP within 2-3 days for outpatient MRI of her lumbar spine. MEDICAL DECISION MAKING: I reviewed the patients past medical records, lab and radiographic findings. I discussed the case with the patient. My differential diagnosis included: Hypoglycemia, electrolyte abnormality, UTI, ACS. Patient h as a history of chronic back pain, she states her back pain is the same as her chronic back pain today, she was given 4 mg IV morphine for her back pain today. CT of her lumbar spine did not reveal any fractures or dislocation or need for emergent MRI. I instructed her to follow-up with her PCP for further work-up of her low back pain. Her urine did not demonstrate UTI. She was also found to be in asthma exacerbation, treated with DuoNeb, continuous albuterol for 1 hour and Solu-Medrol. Her chest x-ray did not reveal infectious etiology or pneumonia. She was tested negative for Covid. However her CT angio chest revealed findings worrisome for COVID-19, after treatment she was not hypoxic and did not require supplemental oxygen, she was not tachypneic or retracting or in respiratory distress, I suspect she is amendable for conservative management in the outpatient setting. Her Accu-Cheks in the ED have remained normal. She did not become hypoglycemic in the ER. Departure - Departure Time of Disposition: 06:53 Disposition: Home, Self-Care 01 Condition: Good Clinical Impression: Asthma exacerbation, Low back pain, COVID-19 Type I diabetes mellitus with hypoglycemia Qualifiers: Diabetes mellitus complication detail: without coma Qualified Code(s): E10.649 - Type 1 diabetes mellitus with hypoglycemia without coma - Discharge Information *PRESCRIPTION DRUG MONITORING PROGRAM REVIEWED*: Not Applicable *COPY OF PRESCRIPTION DRUG MONITORING REPORT IN PATIENT KEE: Not Applicable Prescriptions: predniSONE [Prednisone] 50 mg PO DAILY #5 tablet Azithromycin [Zithromax] 250 mg PO DAILY #6 tab Instructions: Preventing Hypoglycemia, Type 1 Diabetes Mellitus, Self Care, Adult, Insulin Treatment for Diabetes Mellitus, What You Should Know About COVID-19 to Protect Yourself and Others - CDC, COVID-19 Referrals: Armand Navas MD [Primary Care Provider] - 3 Days Forms: ED Department Discharge Additional Instructions: The need for follow-up, as well as the timing and circumstances, are variable depending upon the specifics of your emergency department visit. If you don't have a primary care physician on staff, we will provide you with a referral. We always advise you to contact your personal physician following an emergency department visit to inform them of the circumstance of the visit and for follow-up with them and/or the need for any referrals to a consulting specialist. The emergency department will also refer you to a specialist when appropriate. This referral assures that you have the opportunity for follow-up care with a specialist. All of these measure are taken in an effort to provide you with optimal care, which includes your follow-up. Under all circumstances we always encourage you to contact your private physician who remains a resource for coordinating your care. When calling for follow-up care, please make the office aware that this follow-up is from your recent emergency room visit. If for any reason you are refused follow-up, please contact the [facility] Emergency Department at and asked to speak to the emergency department charge nurse. If you do not have a primary care doctor, please follow up with the clinics below within 3-5 days. [facility] - Primary Care [address] [place] [id number] [facility] [address] [place] [id number] Sepsis Event Note (ED) - Focused Exam Vital Signs: Vital Signs Temp Pulse Resp BP Pulse Ox 10/25/20 05:15 99 18 105/55 L 98 10/25/20 04:45 94 19 106/53 L 97 10/25/20 04:15 83 19 116/59 L 99 10/25/20 03:30 80 20 115/64 98 10/25/20 03:15 20 97 10/25/20 03:00 91 21 H 108/63 88 L 10/25/20 02:30 86 20 109/51 L 95 10/25/20 02:00 90 20 107/47 L 95 10/25/20 01:30 94 20 95/44 L 94 L 10/25/20 00:52 95.6 F L 100 22 H 108/55 L 87 L - My Orders Last 24 Hours: My Active Orders 10/25/20 00:56 Accu Check [Blood Glucose Check, Bedside] [RC] Q1H 10/25/20 00:57 Cardiac Monitoring [RC] . DIRECTED EKG 12 Lead [EKG Documentation Completion] [RC] STAT 10/25/20 01:00 Pulse Oximetry Continuous Monitoring [OM.PC] CONTINUOUS 10/25/20 01:34 RT Aerosol Therapy [RC] ASDIRECTED 10/25/20 03:44 RT Aerosol Therapy [RC] ASDIRECTED - Assessment/Plan Last 24 Hours: My Active Orders 10/25/20 00:56 Accu Check [Blood Glucose Check, Bedside] [RC] Q1H 10/25/20 00:57 Cardiac Monitoring [RC] . DIRECTED EKG 12 Lead [EKG Documentation Completion] [RC] STAT 10/25/20 01:00 Pulse Oximetry Continuous Monitoring [OM.PC] CONTINUOUS 10/25/20 01:34 RT Aerosol Therapy [RC] ASDIRECTED 10/25/20 03:44 RT Aerosol Therapy [RC] ASDIRECTED
[2020-10-25] MEDS ORDERED: methylPREDNISolone Sodium Succinate 125 MG/2 ML SDV IVPUSH ONE (01:34)
[2020-10-25] MEDS ORDERED: Albuterol/Ipratropium 3.0-0.5 MG/3 ML Neb Soln NEB ONE (01:34)
[2020-10-25 01:36] LABS: BLOOD UREA NITROGEN,BUN 24 mg/dL (7.0-18.0); CARBON DIOXIDE,CO2 29.2 mmol/L (21.0-32.0); CHLORIDE,CL 107 mmol/L (98-107); GLUCOSE RANDOM 129 mg/dL (74-106); POTASSIUM,K 3.8 mmol/L (3.5-5.1); SODIUM,NA 144 mmol/L (136-145)
--- NOTE | 2020-10-25 01:42 | CR ---
Indication: Chest pain Technique: Chest 1 view Comparison: Chest x-ray 08/22/2020 Findings/Impression: Cardiovascular and mediastinum: Normal heart size with right-sided Port-A-Cath. Lungs and pleural space: Lungs are clear. No sign of infiltrate or mass. No sign of pleural effusion. No pneumothorax. Bones and soft tissues: Status post median sternotomy. Dictated by Jesus Cunningham MD @ Oct 25 2020 1:36AM Signed by Dr. Jesus Cunningham @ Oct 25 2020 1:41AM
[2020-10-25] MEDS ORDERED: Morphine 4 MG/ML Syringe IVPUSH ONE ×2 (01:58→03:47)
[2020-10-25] MEDS ORDERED: Lactated Ringers 1,000 ML IV ONE (01:58)
[2020-10-25] MEDS ORDERED: Albuterol 0.5% 5 MG/ML Neb Soln 20 ML Bottle NEB ONE (03:44)
[2020-10-25] MEDS ORDERED: Iopamidol 755 MG/ML 500 ML Multipack Bottle IVPUSH STA (06:05)
--- NOTE | 2020-10-25 06:21 | CT ---
Indication: Low back pain Technique: Volumetric multidetector CT images of the lumbar spine were obtained without the administration of IV contrast. Comparison: None available. Findings: The lumbar vertebral body heights are grossly maintained. There is preserved lumbar lordosis without significant spondylolisthesis. There is no significant degenerative disc height loss or marginal osteophyte formation. There is no significant spinal canal stenosis or neural foraminal narrowing. There is no displaced fracture or dislocation. The paraspinous soft tissues are grossly within normal limits. Impression: No acute osseous or alignment abnormality. Please note that all CT scans at this facility use dose modulation, iterative reconstruction, and/or weight-based dosing when appropriate to reduce radiation dose to as low as reasonably achievable. Dictated by Og Lei MD @ Oct 25 2020 6:14AM Signed by Dr. Og Lei @ Oct 25 2020 6:20AM
--- NOTE | 2020-10-25 06:27 | CT ---
Indication: Dyspnea Technique: Volumetric multidetector CT images of the chest were obtained after the administration of IV contrast. 75 cc Isovue 370 low osmolar intravenous contrast Comparison: Single view chest October 25, 2020 Findings: There is a right-sided Port-A-Cath. Otherwise, the thoracic inlet and thyroid gland are unremarkable. There is prior median sternotomy with coronary artery bypass grafting changes of the mediastinum. The thoracic aorta is not aneurysmal. There is no central filling defect to suggest pulmonary embolism. There are reactive appearing mediastinal and hilar lymph nodes. There is mild to moderate central bronchial thickening and minimal mucoid impaction in the lower lobe bronchi. There are developing ground-glass opacities seen throughout the bilateral hemithoraces concerning for developing atypical infiltrate such as thomas virus 19. There is no evidence of pulmonary mass or suspicious pulmonary nodule. There is a small hiatal hernia. The partially visualized upper abdomen is grossly within normal limits. The thoracic vertebral body heights remain intact alignment without significant degenerative change or acute osseous abnormality. Impression: Developing ground-glass opacity seen throughout the bilateral hemithoraces with reactive mediastinal and hilar lymph nodes concerning for developing atypical infectious changes such as thomas virus 19. Correlate with history of clinical symptoms and laboratory testing. No evidence of pulmonary embolus. Please note that all CT scans at this facility use dose modulation, iterative reconstruction, and/or weight-based dosing when appropriate to reduce radiation dose to as low as reasonably achievable. Dictated by Og Lei MD @ Oct 25 2020 6:21AM Signed by Dr. Og Lei @ Oct 25 2020 6:27AM
== END 2020-10-25 07:02 | disposition home or self-care (01) ==
LOC: MW.ED 00:52
DX: U07.1 COVID-19 (principal); E10.649 Type 1 diabetes mellitus with hypoglycemia without coma; J45.901 Unspecified asthma with (acute) exacerbation; M54.5 Low back pain; I10 Essential (primary) hypertension; E10.21 Type 1 diabetes mellitus with diabetic nephropathy; I25.10 Atherosclerotic heart disease of native coronary artery without angina pectoris; I25.2 Old myocardial infarction; Z88.8 Allergy status to other drugs, medicaments and biological substances; Z79.4 Long term (current) use of insulin; Z79.82 Long term (current) use of aspirin; Z79.899 Other long term (current) drug therapy; Z95.1 Presence of aortocoronary bypass graft
CPT/HCPCS: 36415; 71045; 71275; 72131; 80053; 81001; 82962; 84484; 85025; 87635; 93005; 96374; 96375; 96376; 99284; J1642; J2270; J2930; J7120; Q9967; 93010; 99285; J7620-GY; U0002

== ENCOUNTER 2020-11-14 16:13 | Observation (INO) | payer BC, MEDICARE ==
[2020-11-14] MEDS ORDERED: methylPREDNISolone Sodium Succinate 40 MG/1 ML SDV IVPUSH ONE (16:16)
[2020-11-14] MEDS ORDERED: Albuterol/Ipratropium 3.0-0.5 MG/3 ML Neb Soln NEB ONE ×2 (16:16→16:49)
--- NOTE | 2020-11-14 16:23 | EDM.PDOC ---
ED HPI GENERAL MEDICAL PROBLEM - General Chief Complaint: Respiratory Problem Stated Complaint: CAN NOT BREATHE Time Seen by Provider: 11/14/20 16:13 - History of Present Illness INITIAL COMMENTS - FREE TEXT/NARRATIVE: 50-year-old female with a history of asthma and known cat and dog allergies. She has a chocolate lab and imaging, cat at home. She presents with shortness of breath and difficulty breathing that started this morning after cleaning up after her dog. She did take some antiallergy medicine this morning but has had progressive shortness of breath. It is associated with a dry cough no chest pain no fever no abdominal pain no lower extremity pain or swelling. - Related Data Allergies Allergy/AdvReac Type Severity Reaction Status Date / Time Fydapmx-Owh-Eqm Reductase Allergy Other Verified 11/14/20 16:15 Inhibitor Home Meds: Home Meds Insulin Aspart [NovoLOG] See Protocol SQ ASDIRECTED 10/22/19 [History] Pregabalin [Lyrica] 300 mg PO DAILY 10/22/19 [History] Aspirin 81 mg PO DAILY 08/23/20 [History] Cholecalciferol (Vitamin D3) [Vitamin D3] 2,000 unit PO DAILY 08/23/20 [History] DULoxetine [Cymbalta] 30 mg PO BID 08/23/20 [History] Estrogens, Conjugated [Premarin] 1.25 mg PO DAILY 08/23/20 [History] Fluticasone/Vilanterol [Breo Ellipta 200-25 MCG Inhalation Kit] 1 inh IH DAILY 08/23/20 [History] Mepolizumab [Nucala] 300 mg SUBCUT .EVERY 4 WEEKS 08/23/20 [History] carvediloL [Carvedilol] 3.125 mg PO DAILY 08/23/20 [History] Azithromycin [Zithromax] 250 mg PO Q24H #3 tablet 08/26/20 [Rx] Cetirizine HCl [All Day Allergy] 10 mg PO DAILY #30 capsule 08/26/20 [Rx] Codeine/guaiFENesin [Robitussin AC] 5 ml PO Q4H PRN #100 ml 08/26/20 [Rx] predniSONE [Prednisone] 10 - 40 mg PO DAILY #40 tablet 08/26/20 [Rx] Azithromycin [Zithromax] 250 mg PO DAILY #6 tab 10/25/20 [Rx] predniSONE [Prednisone] 50 mg PO DAILY #5 tablet 10/25/20 [Rx] Insulin Glargine,Hum.Rec.Anlog [Lantus Solostar] 4 - 6 units SQ QPM 11/14/20 [History] Insulin Glargine,Hum.Rec.Anlog [Lantus Solostar] 11 units SQ QAM 11/14/20 [History] Montelukast [Singulair] 10 mg PO BEDTIME PRN 11/14/20 [History] Pregabalin 100 mg PO QAM 11/14/20 [History] Past Medical History HEENT History: Reports: Allergic Rhinitis Cardiovascular History: Reports: Bypass, Hypertension, [place] Other Cardiovascular History: triple bypass Respiratory History: Reports: Asthma, Sleep Apnea Gastrointestinal History: Reports: None Genitourinary History: Reports: Diabetic Nephropathy 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: Other MEDICAL GRADE SHOEMAKER History: C-sect twice, Hysterectomy Musculoskeletal History: Reports: None Neurological History: Reports: None Psychiatric History: Reports: None Endocrine/Metabolic History: Reports: Diabetes, Type I Hematologic History: Reports: None Immunologic History: Reports: None Oncologic (Cancer) History: Reports: None Dermatologic History: Reports: None - Infectious Disease History Infectious Disease History: Reports: None - Past Surgical History HEENT Surgical History: Reports: None Respiratory Surgical History: Reports: None Female Surgical History: Reports: Section Endocrine Surgical History: Reports: None Social & Family History - Family History Family Medical History: No Pertinent Family History - Caffeine Use Caffeine Use: Reports: None ED ROS GENERAL - Review of Systems Review Of Systems: See Below Free Text/Narrative/Comment: General: No fever. Skin: No rash. Eyes: No vision problems. ENT: No sore throat. Neck: No neck stiffness. Respiratory: Per HPI Cardiac: No chest pain. Gastrointestinal: No nausea, vomiting or abdominal pain. Urinary: No dysuria. Musculoskeletal: No myalgias/arthralgias. Neurologic: No headache. ED EXAM, GENERAL - Physical Exam Exam: See Below Free Text/Narrative:: General Appearance: No acute distress Skin: No rash HEENT: Normocephalic/atraumatic, sclera anicteric, mucous membranes moist Neck: Normal range of motion Chest and Lungs: Diffuse expiratory wheezing with prolonged expiratory phase no accessory muscle use Cardiovascular: Regular rate and rhythm, no murmur Abdomen: Soft, non-tender Back: Normal Musculoskeletal: No edema or tenderness Neurologic: Awake, alert, no obvious deficits, moving all extremities Psychiatric: Appropriate, cooperative #1 Interpretation EKG Date: 11/14/20 Time: 16:30 EKG Interpretation Comments: Normal sinus rhythm rate of 99 normal axis and intervals no acute ischemia QTC 424 Course - Vital Signs Last Recorded V/S: Last Vital Signs Temp 96 F L 11/14/20 16:15 Pulse 115 H 11/14/20 16:15 Resp 18 11/14/20 16:15 BP 126/72 11/14/20 16:15 Pulse Ox 96 11/14/20 16:15 - Orders/Labs/Meds Orders: Active Orders 24 hr Category Date Time Status Blood Glucose Check, Bedside [RC] ONETIME Care 11/14/20 16:49 Active EKG 12 Lead [EKG Documentation Completion] [RC] STAT Care 11/14/20 16:38 Active RT Aerosol Therapy [RC] ASDIRECTED Care 11/14/20 16:17 Active RT Aerosol Therapy [RC] ASDIRECTED Care 11/14/20 16:49 Active CORONAVIRUS COVID-19 DONATO [MOLEC] Stat Lab 11/14/20 18:03 Ordered Dextrose 50% in Water Med 11/14/20 16:50 Active 50 ml IV ASDIRECTED PRN Glucagon,Human Recombinant [GlucaGen] Med 11/14/20 16:50 Active 1 mg IM ASDIRECTED PRN Medication Orders Dextrose/Water (Dextrose 50% In Water) 50 ml IV ASDIRECTED PRN PRN Reason: Hypoglycemia Glucagon (Glucagen) 1 mg IM ASDIRECTED PRN PRN Reason: Hypoglycemia Labs: Laboratory Tests 11/14/20 11/14/20 11/14/20 Range/Units 16:49 16:50 16:50 WBC 5.29 (4.0-11.0) K/uL RBC 4.27 L (4.30-5.90) M/uL Hgb 12.8 (12.0-16.0) g/dL Hct 38.7 (36.0-46.0) % MCV 90.6 (80.0-98.0) fL MCH 30.0 (27.0-32.0) pg MCHC 33.1 (31.0-37.0) g/dL RDW Std Deviation 43.0 (28.0-62.0) fl RDW Coeff of Margaret 13 (11.0-15.0) % Plt Count 239 (150-400) K/uL MPV 10.10 (7.40-12.00) fL Neut % (Auto) 65.8 (48.0-80.0) % Lymph % (Auto) 26.3 (16.0-40.0) % Mcintosh % (Auto) 6.4 (0.0-15.0) % Eos % (Auto) 1.1 (0.0-7.0) % Baso % (Auto) 0.4 (0.0-1.5) % Neut # (Auto) 3.5 (1.4-5.7) K/uL Lymph # (Auto) 1.4 (0.6-2.4) K/uL [place]osh # (Auto) 0.3 (0.0-0.8) K/uL Eos # (Auto) 0.1 (0.0-0.7) K/uL Baso # (Auto) 0.0 (0.0-0.1) K/uL Nucleated RBC % 0.0 /100WBC Nucleated RBCs # 0 K/uL Sodium 134 L (136-145) mmol/L Potassium 4.6 (3.5-5.1) mmol/L Chloride 101 (98-107) mmol/L Carbon Dioxide 23.1 (21.0-32.0) mmol/L BUN 26 H (7.0-18.0) mg/dL Creatinine 1.1 H (0.6-1.0) mg/dL Est Cr Clr Drug Dosing 55.06 mL/min Estimated GFR (MDRD) 52.6 ml/min Glucose 415 H (74-106) mg/dL POC Glucose 320 H (60-110) mg/dL Calcium 8.3 L (8.5-10.1) mg/dL Troponin I (0.000-0.056) ng/mL 11/14/20 Range/Units 16:50 WBC (4.0-11.0) K/uL RBC (4.30-5.90) M/uL Hgb (12.0-16.0) g/dL Hct (36.0-46.0) % MCV (80.0-98.0) fL MCH (27.0-32.0) pg MCHC (31.0-37.0) g/dL RDW Std Deviation (28.0-62.0) fl RDW Coeff of Margaret (11.0-15.0) % Plt Count (150-400) K/uL MPV (7.40-12.00) fL Neut % (Auto) (48.0-80.0) % Lymph % (Auto) (16.0-40.0) % Mcintosh % (Auto) (0.0-15.0) % Eos % (Auto) (0.0-7.0) % Baso % (Auto) (0.0-1.5) % Neut # (Auto) (1.4-5.7) K/uL Lymph # (Auto) (0.6-2.4) K/uL Mcintosh # (Auto) (0.0-0.8) K/uL Eos # (Auto) (0.0-0.7) K/uL Baso # (Auto) (0.0-0.1) K/uL Nucleated RBC % /100WBC Nucleated RBCs # K/uL Sodium (136-145) mmol/L Potassium (3.5-5.1) mmol/L Chloride (98-107) mmol/L Carbon Dioxide (21.0-32.0) mmol/L BUN (7.0-18.0) mg/dL Creatinine (0.6-1.0) mg/dL Est Cr Clr Drug Dosing mL/min Estimated GFR (MDRD) ml/min Glucose (74-106) mg/dL POC Glucose (60-110) mg/dL Calcium (8.5-10.1) mg/dL Troponin I < 0.050 (0.000-0.056) ng/mL Meds: Medications Generic Name Dose Route Start Last Admin Trade Name Freq PRN Reason Stop Dose Admin Dextrose/Water 50 ml 11/14/20 16:50 Dextrose 50% In Water IV ASDIRECTED PRN Hypoglycemia Glucagon 1 mg 11/14/20 16:50 Glucagen IM ASDIRECTED PRN Hypoglycemia Discontinued Medications Generic Name Dose Route Start Last Admin Trade Name Freq PRN Reason Stop Dose Admin Albuterol/Ipratropium 3 ml 11/14/20 16:16 11/14/20 16:32 Duoneb 3.0-0.5 Mg/3 Ml NEB 11/14/20 16:17 3 ml ONETIME ONE Administration Albuterol/Ipratropium 3 ml 11/14/20 16:49 11/14/20 16:55 Duoneb 3.0-0.5 Mg/3 Ml NEB 11/14/20 16:50 3 ml ONETIME ONE Administration Insulin Aspart 6 unit 11/14/20 17:13 11/14/20 17:20 Novolog SUBCUT 11/14/20 17:14 6 units NOW STA Administration Methylprednisolone Sodium Succinate 60 mg 11/14/20 16:16 11/14/20 16:50 Solu-Medrol IVPUSH 11/14/20 16:17 60 mg ONETIME ONE Administration Departure - Departure Time of Disposition: 18:05 Disposition: Refer to Observation Condition: Good Clinical Impression: Asthma exacerbation - Discharge Information *PRESCRIPTION DRUG MONITORING PROGRAM REVIEWED*: Not Applicable *COPY OF PRESCRIPTION DRUG MONITORING REPORT IN PATIENT KEE: Not Applicable Referrals: PCP,None [Ordering Only Provider] - Forms: ED Department Discharge Sepsis Event Note (ED) - Evaluation Sepsis Screening Result: No Definite Risk - Focused Exam Vital Signs: Vital Signs Temp Pulse Resp BP Pulse Ox 11/14/20 16:15 96 F L 115 H 18 126/72 96 - My Orders Last 24 Hours: My Active Orders 11/14/20 16:17 RT Aerosol Therapy [RC] ASDIRECTED 11/14/20 16:38 EKG 12 Lead [EKG Documentation Completion] [RC] STAT 11/14/20 16:49 Blood Glucose Check, Bedside [RC] ONETIME RT Aerosol Therapy [RC] ASDIRECTED 11/14/20 16:50 Dextrose 50% in Water 50 ml IV ASDIRECTED PRN Glucagon,Human Recombinant [GlucaGen] 1 mg IM ASDIRECTED PRN 11/14/20 18:03 CORONAVIRUS COVID-19 DONATO [MOLEC] Stat - Assessment/Plan Last 24 Hours: My Active Orders 11/14/20 16:17 RT Aerosol Therapy [RC] ASDIRECTED 11/14/20 16:38 EKG 12 Lead [EKG Documentation Completion] [RC] STAT 11/14/20 16:49 Blood Glucose Check, Bedside [RC] ONETIME RT Aerosol Therapy [RC] ASDIRECTED 11/14/20 16:50 Dextrose 50% in Water 50 ml IV ASDIRECTED PRN Glucagon,Human Recombinant [GlucaGen] 1 mg IM ASDIRECTED PRN 11/14/20 18:03 CORONAVIRUS COVID-19 DONATO [MOLEC] Stat Assessment:: 50-year-old female with history of asthma and documented allergy presenting with signs and symptoms most consistent with bronchospasm in the setting of recent allergen exposure. No findings on exam that would suggest CHF no chest pain that would suggest ACS and there was a clear allergic trigger prior to this episode. I do think this represents bronchospasm and asthma. Patient has a history of type 1 diabetes. She has had trouble with hyperglycemia in the setting of steroids in the past but generally can manage it by upping her insulin dosages. Given this and the fact that the patient is not currently in extremis we will stick with 60 mg of Solu-Medrol for now DuoNeb ordered as well as chest x-ray and basic blood work. Given exam findings I do not have a clinical concern for PE. 1650: Patient symptoms and exam improved but still has some end expiratory wheezing and still feels wheezy heart rate is good. We will give an additional DuoNeb. Patient did not take insulin after her lunch. Accu-Chek pending and will bolus based on her sliding scale which is 6 units of NovoLog with a documented blood sugar. 1700: Chest x-ray looks good from a pulmonary standpoint. However demonstrates median sternotomy wires and signs of CABG given this troponin added. 1800: Troponin normal. On reassessment patient still has some end expiratory wh eezing. Patient states that at baseline she uses her albuterol nebulizer twice a day and needs her rescue inhaler intermittently throughout the day. Given this and the persistence of an expiratory wheezing I do not think discharge at this time is a good idea. She will be discharging back into an environment with a known asthma trigger in the setting of an ongoing asthma exacerbation. For this reason patient was discussed with Dr. Schwarz and we will admit for observation and ongoing breathing treatments Covid pending.
[2020-11-14] MEDS ORDERED: 50% Dextrose in Water 50 ML Syringe IV PRN (16:50)
[2020-11-14] MEDS ORDERED: Glucagon,Human Recombinant 1 MG Vial IM PRN (16:50)
--- NOTE | 2020-11-14 17:10 | CR ---
INDICATION: Shortness of breath, asthma TECHNIQUE: Chest 1 view. COMPARISON: 10/25/2020 FINDINGS: Cardiovascular and mediastinum: Heart size and vasculature are normal in caliber and appearance. Mediastinum is within normal limits. Eryn catheter tip in the proximal SVC. Sternotomy wires noted. Lungs and pleural space: Lungs are clear. No sign of infiltrate or mass. No sign of pleural effusion. No pneumothorax. Bones and soft tissues: No significant findings. IMPRESSION: Unremarkable chest. Dictated by José Miguel Steven MD @ Nov 14 2020 5:09PM Signed by Dr. José Miguel Steven @ Nov 14 2020 5:09PM
[2020-11-14] MEDS ORDERED: Insulin Aspart 100 Units/ML 3 ML Pen SUBCUT STA (17:13)
[2020-11-14 17:28] LABS: CARBON DIOXIDE,CO2 23.1 mmol/L (21.0-32.0); POTASSIUM,K 4.6 mmol/L (3.5-5.1)
--- NOTE | 2020-11-14 18:41 | PCM.HP.2 ---
H&P History of Present Illness - General Date of Service: 11/14/20 Admit Problem/Dx: Admission Diagnosis/Problem Admission Diagnosis/Problem Bronchospasm Source of Information: Patient History Limitations: Reports: No Limitations - History of Present Illness Initial Comments - Free Text/Narative: 50-year-old female presents complaining of shortness of breath for the past 2-3 days. She has a PMH of asthma, type 1 DM, CAD s/p CABG, EKATERINA, neuropathy, HTN and cat/dog allergies. Patient reports that she has been feeling increasingly short of breath over the past few days and got worse today after cleaning up after her her dog which prompted her to go to the ER. She also notes having sinus drainage and dry cough. Denies having any fevers, chills, sputum production, chest pain, nausea, vomiting, abdominal pain, diarrhea, blood in stool or blood in urine. She was previously using an insulin pump for her diabetes but has had problems with her pump and is now using subcutaneous insulin. Denies tobacco, alcohol or illicit drug use. In the ER, CBC unremarkable, creatinine 1.1, glucose ~400, troponin normal and CXR unremarkable. Patient was given IV solumedrol 60 mg x 1, Duonebs x2 and novolog 6 units. She was admitted for further evaluation and treatment. - Related Data Allergies/Adverse Reactions: Allergies Allergy/AdvReac Type Severity Reaction Status Date / Time Dqxzyds-Buv-Wyn Reductase Allergy Other Verified 11/14/20 16:15 Inhibitor Home Medications: Home Meds Insulin Aspart [NovoLOG] See Protocol SQ ASDIRECTED 10/22/19 [History] Pregabalin [Lyrica] 200 mg PO QPM 10/22/19 [History] Aspirin 81 mg PO DAILY 08/23/20 [History] Cholecalciferol (Vitamin D3) [Vitamin D3] 2,000 unit PO DAILY 08/23/20 [History] DULoxetine [Cymbalta] 30 mg PO BID 08/23/20 [History] Estrogens, Conjugated [Premarin] 2.15 mg PO DAILY 08/23/20 [History] Fluticasone/Vilanterol [Breo Ellipta 200-25 MCG Inhalation Kit] 1 inh IH DAILY 08/23/20 [History] Mepolizumab [Nucala] 100 mg SUBCUT .EVERY 4 WEEKS 08/23/20 [History] carvediloL [Carvedilol] 3.125 mg PO DAILY 08/23/20 [History] Azithromycin [Zithromax] 250 mg PO Q24H #3 tablet 08/26/20 [Rx] Cetirizine HCl [All Day Allergy] 10 mg PO DAILY #30 capsule 08/26/20 [Rx] Codeine/guaiFENesin [Robitussin AC] 5 ml PO Q4H PRN #100 ml 08/26/20 [Rx] predniSONE [Prednisone] 10 - 40 mg PO DAILY #40 tablet 08/26/20 [Rx] Azithromycin [Zithromax] 250 mg PO DAILY #6 tab 10/25/20 [Rx] predniSONE [Prednisone] 50 mg PO DAILY #5 tablet 10/25/20 [Rx] Insulin Glargine,Hum.Rec.Anlog [Lantus Solostar] 4 - 6 units SQ QPM 11/14/20 [History] Insulin Glargine,Hum.Rec.Anlog [Lantus Solostar] 11 units SQ QAM 11/14/20 [History] Montelukast [Singulair] 10 mg PO BEDTIME PRN 11/14/20 [History] Pregabalin 100 mg PO QAM 11/14/20 [History] Past Medical History HEENT History: Reports: Allergic Rhinitis Cardiovascular History: Reports: Bypass, Hypertension, [place] Other Cardiovascular History: triple bypass Respiratory History: Reports: Asthma, Sleep Apnea Gastrointestinal History: Reports: None Genitourinary History: Reports: Diabetic Nephropathy 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/BYN History: C-sect twice, Hysterectomy Musculoskeletal History: Reports: None Neurological History: Reports: None Psychiatric History: Reports: None Endocrine/Metabolic History: Reports: Diabetes, Type I Hematologic History: Reports: None Immunologic History: Reports: None Oncologic (Cancer) History: Reports: None Dermatologic History: Reports: None - Infectious Disease History Infectious Disease History: Reports: None - Past Surgical History HEENT Surgical History: Reports: None Respiratory Surgical History: Reports: None Female Surgical History: Reports: Section Endocrine Surgical History: Reports: None Social & Family History - Family History Family Medical History: No Pertinent Family History - Tobacco Use Tobacco Use Status *Q: Never Tobacco User - Caffeine Use Caffeine Use: Reports: None - Recreational Drug Use Recreational Drug Use: No H&P Review of Systems - Review of Systems: Review Of Systems: Comprehensive ROS is negative, except as noted in HPI. Exam - Exam Exam: See Below - Vital Signs Vital Signs: Last Vital Signs Temp 35.5 C L 11/14/20 16:15 Pulse 115 H 11/14/20 16:15 Resp 18 11/14/20 16:15 BP 126/72 11/14/20 16:15 Pulse Ox 96 11/14/20 16:15 Weight: 85.275 kg - Exam General: Alert, Oriented, Cooperative, Other (NAD) HEENT: Conjunctiva Clear, EOMI, Hearing Intact, Pupils Equal, Pupils Reactive Neck: Supple, Trachea Midline Lungs: Normal Respiratory Effort, Other (Diminished aeration bilaterally.) Cardiovascular: Regular Rate, Regular Rhythm GI/Abdominal Exam: Normal Bowel Sounds, Soft, Non-Tender, No Distention Extremities: Normal Inspection, No Pedal Edema Peripheral Pulses: 2+: Radial (L), Radial (R) Skin: Warm, Dry, Intact Neurological: Cranial Nerves Intact, Strength Equal Bilateral, Normal Speech, Normal Tone Neuro Extensive - Mental Status: Alert, Oriented x3, Normal Mood/Affect Psychiatric: Alert, Normal Affect, Normal Mood - Patient Data Lab Results Last 24 hrs: Laboratory Results - last 24 hr 11/14/20 11/14/20 11/14/20 Range/Units 16:49 16:50 16:50 WBC 5.29 (4.0-11.0) K/uL RBC 4.27 L (4.30-5.90) M/uL Hgb 12.8 (12.0-16.0) g/dL Hct 38.7 (36.0-46.0) % MCV 90.6 (80.0-98.0) fL MCH 30.0 (27.0-32.0) pg MCHC 33.1 (31.0-37.0) g/dL RDW Std Deviation 43.0 (28.0-62.0) fl RDW Coeff of Margaret 13 (11.0-15.0) % Plt Count 239 (150-400) K/uL MPV 10.10 (7.40-12.00) fL Neut % (Auto) 65.8 (48.0-80.0) % Lymph % (Auto) 26.3 (16.0-40.0) % [place] % (Auto) 6.4 (0.0-15.0) % Eos % (Auto) 1.1 (0.0-7.0) % Baso % (Auto) 0.4 (0.0-1.5) % Neut # (Auto) 3.5 (1.4-5.7) K/uL Lymph # (Auto) 1.4 (0.6-2.4) K/uL [place] # (Auto) 0.3 (0.0-0.8) K/uL Eos # (Auto) 0.1 (0.0-0.7) K/uL Baso # (Auto) 0.0 (0.0-0.1) K/uL Nucleated RBC % 0.0 /100WBC Nucleated RBCs # 0 K/uL Sodium 134 L (136-145) mmol/L Potassium 4.6 (3.5-5.1) mmol/L Chloride 101 (98-107) mmol/L Carbon Dioxide 23.1 (21.0-32.0) mmol/L BUN 26 H (7.0-18.0) mg/dL Creatinine 1.1 H (0.6-1.0) mg/dL Est Cr Clr Drug Dosing 55.06 mL/min Estimated GFR (MDRD) 52.6 ml/min Glucose 415 H (74-106) mg/dL POC Glucose 320 H (60-110) mg/dL Calcium 8.3 L (8.5-10.1) mg/dL Troponin I (0.000-0.056) ng/mL 11/14/20 Range/Units 16:50 WBC (4.0-11.0) K/uL RBC (4.30-5.90) M/uL Hgb (12.0-16.0) g/dL Hct (36.0-46.0) % MCV (80.0-98.0) fL MCH (27.0-32.0) pg MCHC (31.0-37.0) g/dL RDW Std Deviation (28.0-62.0) fl RDW Coeff of Margaret (11.0-15.0) % Plt Count (150-400) K/uL MPV (7.40-12.00) fL Neut % (Auto) (48.0-80.0) % Lymph % (Auto) (16.0-40.0) % [place] % (Auto) (0.0-15.0) % Eos % (Auto) (0.0-7.0) % Baso % (Auto) (0.0-1.5) % Neut # (Auto) (1.4-5.7) K/uL Lymph # (Auto) (0.6-2.4) K/uL [place] # (Auto) (0.0-0.8) K/uL Eos # (Auto) (0.0-0.7) K/uL Baso # (Auto) (0.0-0.1) K/uL Nucleated RBC % /100WBC Nucleated RBCs # K/uL Sodium (136-145) mmol/L Potassium (3.5-5.1) mmol/L Chloride (98-107) mmol/L Carbon Dioxide (21.0-32.0) mmol/L BUN (7.0-18.0) mg/dL Creatinine (0.6-1.0) mg/dL Est Cr Clr Drug Dosing mL/min Estimated GFR (MDRD) ml/min Glucose (74-106) mg/dL POC Glucose (60-110) mg/dL Calcium (8.5-10.1) mg/dL Troponin I < 0.050 (0.000-0.056) ng/mL Result Diagrams: 11/14/20 16:50 11/14/20 16:50 Sepsis Event Note - Evaluation Sepsis Screening Result: No Definite Risk - Focused Exam Vital Signs: Vital Signs Temp Pulse Resp BP Pulse Ox 11/14/20 16:15 35.5 C L 115 H 18 126/72 96 - Problem List (1) Asthma exacerbation SNOMED Code(s): 217517034 ICD Code: J45.901 - UNSPECIFIED ASTHMA WITH (ACUTE) EXACERBATION Status: Acute Current Visit: Yes (2) Cat allergies SNOMED Code(s): 417633815 ICD Code: J30.81 - ALLERGIC RHINITIS DUE TO ANIMAL (CAT) (DOG) HAIR AND DANDER Status: Acute Current Visit: Yes (3) Allergy to dogs SNOMED Code(s): 017818132 ICD Code: J30.81 - ALLERGIC RHINITIS DUE TO ANIMAL (CAT) (DOG) HAIR AND DANDER Status: Acute Current Visit: Yes (4) Hx of CABG SNOMED Code(s): 024260101, 576986881 ICD Code: Z95.1 - PRESENCE OF AORTOCORONARY BYPASS GRAFT Status: Acute Current Visit: Yes (5) CAD (coronary artery disease) SNOMED Code(s): 04152268 ICD Code: I25.10 - ATHSCL HEART DISEASE OF [place] CORONARY ARTERY W/O ANG PCTRS Status: Chronic Current Visit: No (6) DM type 1 (diabetes mellitus, type 1) SNOMED Code(s): 87549849 ICD Code: E10.9 - TYPE 1 DIABETES MELLITUS WITHOUT COMPLICATIONS Status: Chronic Current Visit: No Qualifiers: Diabetes mellitus complication status: with neurologic complications Diabetes mellitus complication detail: with unspecified neuropathy Qualified Code(s): E10.40 - Type 1 diabetes mellitus with diabetic neuropathy, unspecified (7) Diabetic neuropathy SNOMED Code(s): 029741572, 964748463, 789140997 ICD Code: E11.40 - TYPE 2 DIABETES MELLITUS WITH DIABETIC NEUROPATHY, UNSP Status: Chronic Current Visit: No Qualifiers: Diabetes mellitus type: type 1 (8) Hypertension SNOMED Code(s): 67435181 ICD Code: I10 - ESSENTIAL (PRIMARY) HYPERTENSION Status: Chronic Current Visit: No (9) EKATERINA (obstructive sleep apnea) SNOMED Code(s): 91259803 ICD Code: G47.33 - OBSTRUCTIVE SLEEP APNEA (ADULT) (PEDIATRIC) Status: Chronic Current Visit: No (10) YANNICK (acute kidney injury) SNOMED Code(s): 64412212, 39106824 ICD Code: N17.9 - ACUTE KIDNEY FAILURE, UNSPECIFIED Status: Acute Current Visit: Yes Problem List Initiated/Reviewed/Updated: Yes Orders Last 24hrs: Active Orders 24 hr Category Date Time Status Patient Status [ADT] Routine ADT 11/14/20 18:06 Active Blood Glucose Check, Bedside [RC] ONETIME Care 11/14/20 16:49 Active EKG 12 Lead [EKG Documentation Completion] [RC] STAT Care 11/14/20 16:38 Active RT Aerosol Therapy [RC] ASDIRECTED Care 11/14/20 16:17 Active RT Aerosol Therapy [RC] ASDIRECTED Care 11/14/20 16:49 Active CORONAVIRUS COVID-19 DONATO [MOLEC] Stat Lab 11/14/20 18:03 Ordered Dextrose 50% in Water Med 11/14/20 16:50 Active 50 ml IV ASDIRECTED PRN Glucagon,Human Recombinant [GlucaGen] Med 11/14/20 16:50 Active 1 mg IM ASDIRECTED PRN Medication Orders Dextrose/Water (Dextrose 50% In Water) 50 ml IV ASDIRECTED PRN PRN Reason: Hypoglycemia Glucagon (Glucagen) 1 mg IM ASDIRECTED PRN PRN Reason: Hypoglycemia Assessment/Plan Comment:: Assessment and Plan: 1. Asthma exacerbation: - Admit to med/surg. Supplemental oxygen prn to maintain O2 sat > 92%, Duonebs q4 TATIANA and IV solumedrol 40 mg TID. Will also order albuterol neb q2 PRN. 2. YANNICK: - Will order IV LR 500 cc bolus and recheck with AM labs. 3. DM type 1: - ADA diet, novolog SSI and accuchecks TIDAC. Will resume home levemir regimen of 12 units in AM and 6 units in PM. Will check HgbA1c. - Patient currently not using her insulin pump due to malfunction. 4. Past medical history of CAD s/p CABG, EKATERINA, HTN and neuropathy: - Continue home medications. 5. DVT prophylaxis: - Heparin 5,000 units subcut qd. 6. GI prophylaxis: - Pantoprazole 40 mg qd.
[2020-11-14] MEDS ORDERED: Ondansetron 4 MG/2 ML SDV IVPUSH PRN (18:50)
[2020-11-14] MEDS ORDERED: Acetaminophen 325 MG Tab PO PRN ×2 (18:50→21:47)
[2020-11-14] MEDS ORDERED: Albuterol 0.083% 2.5 MG/3 ML Neb Soln NEB PRN (18:55)
[2020-11-14] MEDS ORDERED: Lactated Ringers 500 ML IV ONE (18:56)
[2020-11-14 19:33] LABS: HEMOGLOBIN A1C 8.5 %
[2020-11-14] MEDS: Heparin Sodium 5,000 Units/ML Vial SUBCUT SCH (19:40)
[2020-11-14] MEDS ORDERED: DULoxetine 30 MG Cap PO SCH (21:00)
[2020-11-14] MEDS ORDERED: Insulin Detemir 100 Units/ML 3 ML Pen SUBCUT SCH (21:00)
[2020-11-14] MEDS: Montelukast 10 MG Tab PO SCH (21:25)
[2020-11-14] MEDS ORDERED: Ibuprofen 400 MG Tab PO PRN (21:49)
[2020-11-14] MEDS: Insulin Glargine,Human Rec. Analog 100 Units/ML 3 ML Pen SUBCUT SCH (22:07)
[2020-11-14] MEDS: Pregabalin 200 MG Cap PO SCH (22:11)
[2020-11-14] MEDS: methylPREDNISolone Sodium Succinate 40 MG/1 ML SDV IV SCH (22:14)
[2020-11-14] MEDS: Albuterol/Ipratropium 3.0-0.5 MG/3 ML Neb Soln NEB SCH (22:20)
[2020-11-15] MEDS ORDERED: traMADol 50 MG Tab PO ONE (02:02)
[2020-11-15] MEDS: Albuterol/Ipratropium 3.0-0.5 MG/3 ML Neb Soln NEB SCH ×6 (02:12→21:21)
[2020-11-15] MEDS ORDERED: Morphine 2 MG/ML SYRINGE IVPUSH ONE (02:31)
[2020-11-15] MEDS: Heparin Sodium 5,000 Units/ML Vial SUBCUT SCH ×3 (02:53→18:45)
[2020-11-15 05:58] LABS: CARBON DIOXIDE,CO2 21.8 mmol/L (21.0-32.0)
[2020-11-15] MEDS ORDERED: Insulin Aspart 100 Units/ML 3 ML Pen SUBCUT ONE (06:07)
--- NOTE | 2020-11-15 07:44 | PCM.PN ---
- General Info Date of Service: 11/15/20 Subjective Update: Reports breathing is a bit better overnight but still coughing a lot. Tolerated oral diet. No fevers, chills, nausea, vomiting or chest pain. - Patient Data Vitals - Most Recent: Last Vital Signs Temp 36.1 C 11/15/20 04:40 Pulse 89 11/15/20 04:40 Resp 19 11/15/20 04:40 BP 130/62 11/15/20 04:40 Pulse Ox 96 11/15/20 04:40 Weight - Most Recent: 85.275 kg I&O - Last 24 Hours: Intake & Output 11/14/20 11/15/20 11/15/20 22:59 06:59 14:59 Intake Total 400 Output Total 1000 Balance -600 Lab Results Last 24 Hours: Laboratory Results - last 24 hr 11/14/20 11/14/20 11/14/20 Range/Units 16:49 16:50 16:50 WBC 5.29 (4.0-11.0) K/uL RBC 4.27 L (4.30-5.90) M/uL Hgb 12.8 (12.0-16.0) g/dL Hct 38.7 (36.0-46.0) % MCV 90.6 (80.0-98.0) fL MCH 30.0 (27.0-32.0) pg MCHC 33.1 (31.0-37.0) g/dL RDW Std Deviation 43.0 (28.0-62.0) fl RDW Coeff of Margaret 13 (11.0-15.0) % Plt Count 239 (150-400) K/uL MPV 10.10 (7.40-12.00) fL Neut % (Auto) 65.8 (48.0-80.0) % Lymph % (Auto) 26.3 (16.0-40.0) % [place] % (Auto) 6.4 (0.0-15.0) % Eos % (Auto) 1.1 (0.0-7.0) % Baso % (Auto) 0.4 (0.0-1.5) % Neut # (Auto) 3.5 (1.4-5.7) K/uL Lymph # (Auto) 1.4 (0.6-2.4) K/uL [place] # (Auto) 0.3 (0.0-0.8) K/uL Eos # (Auto) 0.1 (0.0-0.7) K/uL Baso # (Auto) 0.0 (0.0-0.1) K/uL Nucleated RBC % 0.0 /100WBC Nucleated RBCs # 0 K/uL Sodium 134 L (136-145) mmol/L Potassium 4.6 (3.5-5.1) mmol/L Chloride 101 (98-107) mmol/L Carbon Dioxide 23.1 (21.0-32.0) mmol/L BUN 26 H (7.0-18.0) mg/dL Creatinine 1.1 H (0.6-1.0) mg/dL Est Cr Clr Drug Dosing 55.06 mL/min Estimated GFR (MDRD) 52.6 ml/min Glucose 415 H (74-106) mg/dL POC Glucose 320 H (60-110) mg/dL Hemoglobin A1c (4.5 - 6.2) % Calcium 8.3 L (8.5-10.1) mg/dL Troponin I (0.000-0.056) ng/mL SARS-CoV-2 RNA (DONATO) (NEGATIVE) 11/14/20 11/14/20 11/14/20 Range/Units 16:50 16:53 18:32 WBC (4.0-11.0) K/uL RBC (4.30-5.90) M/uL Hgb (12.0-16.0) g/dL Hct (36.0-46.0) % MCV (80.0-98.0) fL MCH (27.0-32.0) pg MCHC (31.0-37.0) g/dL RDW Std Deviation (28.0-62.0) fl RDW Coeff of Margaret (11.0-15.0) % Plt Count (150-400) K/uL MPV (7.40-12.00) fL Neut % (Auto) (48.0-80.0) % Lymph % (Auto) (16.0-40.0) % [place] % (Auto) (0.0-15.0) % Eos % (Auto) (0.0-7.0) % Baso % (Auto) (0.0-1.5) % Neut # (Auto) (1.4-5.7) K/uL Lymph # (Auto) (0.6-2.4) K/uL [place] # (Auto) (0.0-0.8) K/uL Eos # (Auto) (0.0-0.7) K/uL Baso # (Auto) (0.0-0.1) K/uL Nucleated RBC % /100WBC Nucleated RBCs # K/uL Sodium (136-145) mmol/L Potassium (3.5-5.1) mmol/L Chloride (98-107) mmol/L Carbon Dioxide (21.0-32.0) mmol/L BUN (7.0-18.0) mg/dL Creatinine (0.6-1.0) mg/dL Est Cr Clr Drug Dosing mL/min Estimated GFR (MDRD) ml/min Glucose (74-106) mg/dL POC Glucose (60-110) mg/dL Hemoglobin A1c 8.5 H (4.5 - 6.2) % Calcium (8.5-10.1) mg/dL Troponin I < 0.050 (0.000-0.056) ng/mL SARS-CoV-2 RNA (DONATO) NEGATIVE (NEGATIVE) 11/14/20 11/15/20 11/15/20 Range/Units 20:18 05:24 05:24 WBC 6.16 (4.0-11.0) K/uL RBC 4.17 L (4.30-5.90) M/uL Hgb 12.2 (12.0-16.0) g/dL Hct 37.8 (36.0-46.0) % MCV 90.6 (80.0-98.0) fL MCH 29.3 (27.0-32.0) pg MCHC 32.3 (31.0-37.0) g/dL RDW Std Deviation 43.1 (28.0-62.0) fl RDW Coeff of Margaret 13 (11.0-15.0) % Plt Count 253 (150-400) K/uL MPV 10.40 (7.40-12.00) fL Neut % (Auto) 91.9 H (48.0-80.0) % Lymph % (Auto) 7.5 L (16.0-40.0) % [place] % (Auto) 0.6 (0.0-15.0) % Eos % (Auto) 0.0 (0.0-7.0) % Baso % (Auto) 0.0 (0.0-1.5) % Neut # (Auto) 5.7 (1.4-5.7) K/uL Lymph # (Auto) 0.5 L (0.6-2.4) K/uL [place] # (Auto) 0.0 (0.0-0.8) K/uL Eos # (Auto) 0.0 (0.0-0.7) K/uL Baso # (Auto) 0.0 (0.0-0.1) K/uL Nucleated RBC % 0.0 /100WBC Nucleated RBCs # 0 K/uL Sodium 134 L (136-145) mmol/L Potassium 5.0 (3.5-5.1) mmol/L Chloride 101 (98-107) mmol/L Carbon Dioxide 21.8 (21.0-32.0) mmol/L BUN 28 H (7.0-18.0) mg/dL Creatinine 1.2 H (0.6-1.0) mg/dL Est Cr Clr Drug Dosing 50.39 mL/min Estimated GFR (MDRD) 47.6 ml/min Glucose 509 H* (74-106) mg/dL POC Glucose 228 H (60-110) mg/dL Hemoglobin A1c (4.5 - 6.2) % Calcium 8.4 L (8.5-10.1) mg/dL Troponin I (0.000-0.056) ng/mL SARS-CoV-2 RNA (DONATO) (NEGATIVE) Med Orders - Current: Current Medications Acetaminophen (Tylenol) 650 mg PO Q4H PRN PRN Reason: Pain (Mild 1-3)/fever Last Admin: 11/14/20 22:11 Dose: 650 mg Documented by: Albuterol (Proventil Neb Soln) 2.5 mg NEB Q2H PRN PRN Reason: Dyspnea Albuterol/Ipratropium (Duoneb 3.0-0.5 Mg/3 Ml) 3 ml NEB Q4HRRT TATIANA Last Admin: 11/15/20 06:31 Dose: 3 ml Documented by: Aspirin (Aspirin) 81 mg PO DAILY [facility] Carvedilol (Coreg) 3.125 mg PO DAILY [facility] Cetirizine HCl (Zyrtec) 10 mg PO DAILY [facility] Dextrose/Water (Dextrose 50% In Water) 50 ml IV ASDIRECTED PRN PRN Reason: Hypoglycemia Duloxetine HCl (Cymbalta) 30 mg PO BID [facility] Glucagon (Glucagen) 1 mg IM ASDIRECTED PRN PRN Reason: Hypoglycemia Guaifenesin/Codeine Phosphate (Robitussin Ac) 5 ml PO Q6H PRN PRN Reason: Cough Heparin Sodium (Porcine) (Heparin Sodium) 5,000 units SUBCUT Q8H [facility] Last Admin: 11/15/20 02:53 Dose: 5,000 units Documented by: Ibuprofen (Motrin) 400 mg PO Q6H PRN PRN Reason: Pain Insulin Aspart (Novolog) 0 unit SUBCUT TIDAC [facility]; Protocol Insulin Glargine (Lantus Solostar) 6 units SUBCUT BEDTIME [facility] Last Admin: 11/14/20 22:07 Dose: 6 units Documented by: Insulin Glargine (Lantus Solostar) 11 units SUBCUT QAM [facility] Methylprednisolone Sodium Succinate (Solu-Medrol) 40 mg IV TID [facility] Last Admin: 11/14/20 22:14 Dose: 40 mg Documented by: Montelukast Sodium (Singulair) 10 mg PO BEDTIME [facility] Last Admin: 11/14/20 21:25 Dose: 10 mg Documented by: Ondansetron HCl (Zofran) 4 mg IVPUSH Q4H PRN PRN Reason: Nausea Pantoprazole Sodium (Protonix) 40 mg PO DAILY [facility] Fluticasone/Vilanterol [Breo Ellipta] 200-25mcg 1 each INH DAILY [facility] Pregabalin (Lyrica) 200 mg PO QPM [facility] Last Admin: 11/14/20 22:11 Dose: 200 mg Documented by: Pregabalin (Lyrica) 100 mg PO QAM [facility] Discontinued Medications Acetaminophen (Tylenol) 650 mg PO Q6H PRN PRN Reason: Pain Albuterol/Ipratropium (Duoneb 3.0-0.5 Mg/3 Ml) 3 ml NEB ONETIME ONE Stop: 11/14/20 16:17 Last Admin: 11/14/20 16:32 Dose: 3 ml Documented by: Albuterol/Ipratropium (Duoneb 3.0-0.5 Mg/3 Ml) 3 ml NEB ONETIME ONE Stop: 11/14/20 16:50 Last Admin: 11/14/20 16:55 Dose: 3 ml Documented by: Lactated Ringer's (Ringers, Lactated) 500 mls @ 999 mls/hr IV .BOLUS ONE Stop: 11/14/20 19:26 Last Admin: 11/14/20 20:01 Dose: 999 mls/hr Documented by: Insulin Aspart (Novolog) 6 unit SUBCUT NOW STA Stop: 11/14/20 17:14 Last Admin: 11/14/20 17:20 Dose: 6 units Documented by: Insulin Aspart (Novolog) 12 unit SUBCUT ONETIME ONE Stop: 11/15/20 06:08 Last Admin: 11/15/20 06:25 Dose: 12 units Documented by: Insulin Detemir (Levemir) 12 unit SUBCUT DAILY [place]ATIANA Insulin Detemir (Levemir) 6 unit SUBCUT BEDTIME [place]IANA Last Admin: 11/15/20 00:17 Dose: Not Given Documented by: Methylprednisolone Sodium Succinate (Solu-Medrol) 60 mg IVPUSH ONETIME ONE Stop: 11/14/20 16:17 Last Admin: 11/14/20 16:50 Dose: 60 mg Documented by: Morphine Sulfate (Morphine) 1 mg IVPUSH ONETIME ONE Stop: 11/15/20 02:32 Last Admin: 11/15/20 02:46 Dose: 1 mg Documented by: Tramadol HCl (Ultram) 50 mg PO ONETIME ONE Stop: 11/15/20 02:03 Last Admin: 11/15/20 02:56 Dose: Not Given Documented by: - Exam General: Alert, Oriented, Cooperative, No Acute Distress Lungs: Normal Respiratory Effort, Other (coarse breath sounds b/l, improved aeration since prior exam) Cardiovascular: Regular Rate, Regular Rhythm GI/Abdominal Exam: Normal Bowel Sounds, Soft, Non-Tender, No Distention Extremities: Normal Inspection, No Pedal Edema - Patient Data Lab Results Last 24 hrs: Laboratory Results - last 24 hr 11/14/20 11/14/20 11/14/20 Range/Units 16:49 16:50 16:50 WBC 5.29 (4.0-11.0) K/uL RBC 4.27 L (4.30-5.90) M/uL Hgb 12.8 (12.0-16.0) g/dL Hct 38.7 (36.0-46.0) % MCV 90.6 (80.0-98.0) fL MCH 30.0 (27.0-32.0) pg MCHC 33.1 (31.0-37.0) g/dL RDW Std Deviation 43.0 (28.0-62.0) fl RDW Coeff of Margaret 13 (11.0-15.0) % Plt Count 239 (150-400) K/uL MPV 10.10 (7.40-12.00) fL Neut % (Auto) 65.8 (48.0-80.0) % Lymph % (Auto) 26.3 (16.0-40.0) % [place] % (Auto) 6.4 (0.0-15.0) % Eos % (Auto) 1.1 (0.0-7.0) % Baso % (Auto) 0.4 (0.0-1.5) % Neut # (Auto) 3.5 (1.4-5.7) K/uL Lymph # (Auto) 1.4 (0.6-2.4) K/uL [place] # (Auto) 0.3 (0.0-0.8) K/uL Eos # (Auto) 0.1 (0.0-0.7) K/uL Baso # (Auto) 0.0 (0.0-0.1) K/uL Nucleated RBC % 0.0 /100WBC Nucleated RBCs # 0 K/uL Sodium 134 L (136-145) mmol/L Potassium 4.6 (3.5-5.1) mmol/L Chloride 101 (98-107) mmol/L Carbon Dioxide 23.1 (21.0-32.0) mmol/L BUN 26 H (7.0-18.0) mg/dL Creatinine 1.1 H (0.6-1.0) mg/dL Est Cr Clr Drug Dosing 55.06 mL/min Estimated GFR (MDRD) 52.6 ml/min Glucose 415 H (74-106) mg/dL POC Glucose 320 H (60-110) mg/dL Hemoglobin A1c (4.5 - 6.2) % Calcium 8.3 L (8.5-10.1) mg/dL Troponin I (0.000-0.056) ng/mL SARS-CoV-2 RNA (DONATO) (NEGATIVE) 11/14/20 11/14/20 11/14/20 Range/Units 16:50 16:53 18:32 WBC (4.0-11.0) K/uL RBC (4.30-5.90) M/uL Hgb (12.0-16.0) g/dL Hct (36.0-46.0) % MCV (80.0-98.0) fL MCH (27.0-32.0) pg MCHC (31.0-37.0) g/dL RDW Std Deviation (28.0-62.0) fl RDW Coeff of Margaret (11.0-15.0) % Plt Count (150-400) K/uL MPV (7.40-12.00) fL Neut % (Auto) (48.0-80.0) % Lymph % (Auto) (16.0-40.0) % [place] % (Auto) (0.0-15.0) % Eos % (Auto) (0.0-7.0) % Baso % (Auto) (0.0-1.5) % Neut # (Auto) (1.4-5.7) K/uL Lymph # (Auto) (0.6-2.4) K/uL [place] # (Auto) (0.0-0.8) K/uL Eos # (Auto) (0.0-0.7) K/uL Baso # (Auto) (0.0-0.1) K/uL Nucleated RBC % /100WBC Nucleated RBCs # K/uL Sodium (136-145) mmol/L Potassium (3.5-5.1) mmol/L Chloride (98-107) mmol/L Carbon Dioxide (21.0-32.0) mmol/L BUN (7.0-18.0) mg/dL Creatinine (0.6-1.0) mg/dL Est Cr Clr Drug Dosing mL/min Estimated GFR (MDRD) ml/min Glucose (74-106) mg/dL POC Glucose (60-110) mg/dL Hemoglobin A1c 8.5 H (4.5 - 6.2) % Calcium (8.5-10.1) mg/dL Troponin I < 0.050 (0.000-0.056) ng/mL SARS-CoV-2 RNA (DONATO) NEGATIVE (NEGATIVE) 11/14/20 11/15/20 11/15/20 Range/Units 20:18 05:24 05:24 WBC 6.16 (4.0-11.0) K/uL RBC 4.17 L (4.30-5.90) M/uL Hgb 12.2 (12.0-16.0) g/dL Hct 37.8 (36.0-46.0) % MCV 90.6 (80.0-98.0) fL MCH 29.3 (27.0-32.0) pg MCHC 32.3 (31.0-37.0) g/dL RDW Std Deviation 43.1 (28.0-62.0) fl RDW Coeff of Margaret 13 (11.0-15.0) % Plt Count 253 (150-400) K/uL MPV 10.40 (7.40-12.00) fL Neut % (Auto) 91.9 H (48.0-80.0) % Lymph % (Auto) 7.5 L (16.0-40.0) % [place] % (Auto) 0.6 (0.0-15.0) % Eos % (Auto) 0.0 (0.0-7.0) % Baso % (Auto) 0.0 (0.0-1.5) % Neut # (Auto) 5.7 (1.4-5.7) K/uL Lymph # (Auto) 0.5 L (0.6-2.4) K/uL [place] # (Auto) 0.0 (0.0-0.8) K/uL Eos # (Auto) 0.0 (0.0-0.7) K/uL Baso # (Auto) 0.0 (0.0-0.1) K/uL Nucleated RBC % 0.0 /100WBC Nucleated RBCs # 0 K/uL Sodium 134 L (136-145) mmol/L Potassium 5.0 (3.5-5.1) mmol/L Chloride 101 (98-107) mmol/L Carbon Dioxide 21.8 (21.0-32.0) mmol/L BUN 28 H (7.0-18.0) mg/dL Creatinine 1.2 H (0.6-1.0) mg/dL Est Cr Clr Drug Dosing 50.39 mL/min Estimated GFR (MDRD) 47.6 ml/min Glucose 509 H* (74-106) mg/dL POC Glucose 228 H (60-110) mg/dL Hemoglobin A1c (4.5 - 6.2) % Calcium 8.4 L (8.5-10.1) mg/dL Troponin I (0.000-0.056) ng/mL SARS-CoV-2 RNA (DONATO) (NEGATIVE) Result Diagrams: 11/15/20 05:24 11/15/20 05:24 Sepsis Event Note - Evaluation Sepsis Screening Result: No Definite Risk - Focused Exam Vital Signs: Vital Signs Temp Pulse Resp BP Pulse Ox Pulse Ox 11/15/20 04:40 36.1 C 89 19 130/62 96 11/15/20 01:38 36.1 C 90 19 121/63 96 11/14/20 22:37 96 11/14/20 20:00 35.7 C L 99 18 150/70 H 96 - Problem List & Annotations (1) Asthma exacerbation SNOMED Code(s): 797178438 Code(s): J45.901 - UNSPECIFIED ASTHMA WITH (ACUTE) EXACERBATION Status: Acute Current Visit: Yes (2) Cat allergies SNOMED Code(s): 259182836 Code(s): J30.81 - ALLERGIC RHINITIS DUE TO ANIMAL (CAT) (DOG) HAIR AND DANDER Status: Acute Current Visit: Yes (3) Allergy to dogs SNOMED Code(s): 256839595 Code(s): J30.81 - ALLERGIC RHINITIS DUE TO ANIMAL (CAT) (DOG) HAIR AND DANDER Status: Acute Current Visit: Yes (4) Hx of CABG SNOMED Code(s): 616413820, 685514062 Code(s): Z95.1 - PRESENCE OF AORTOCORONARY BYPASS GRAFT Status: Acute Current Visit: Yes (5) CAD (coronary artery disease) SNOMED Code(s): 36300820 Code(s): I25.10 - ATHSCL HEART DISEASE OF [place] CORONARY ARTERY W/O ANG PCTRS Status: Chronic Current Visit: No (6) DM type 1 (diabetes mellitus, type 1) SNOMED Code(s): 36763523 Code(s): E10.9 - TYPE 1 DIABETES MELLITUS WITHOUT COMPLICATIONS Status: Chronic Current Visit: No Qualifiers: Diabetes mellitus complication status: with neurologic complications Di abetes mellitus complication detail: with unspecified neuropathy Qualified Code(s): E10.40 - Type 1 diabetes mellitus with diabetic neuropathy, unspecified (7) Diabetic neuropathy SNOMED Code(s): 282058565, 073346045, 681736496 Code(s): E11.40 - TYPE 2 DIABETES MELLITUS WITH DIABETIC NEUROPATHY, UNSP Status: Chronic Current Visit: No Qualifiers: Diabetes mellitus type: type 1 (8) Hypertension SNOMED Code(s): 00883174 Code(s): I10 - ESSENTIAL (PRIMARY) HYPERTENSION Status: Chronic Current Visit: No (9) EKATERINA (obstructive sleep apnea) SNOMED Code(s): 82233695 Code(s): G47.33 - OBSTRUCTIVE SLEEP APNEA (ADULT) (PEDIATRIC) Status: Chronic Current Visit: No (10) YANNICK (acute kidney injury) SNOMED Code(s): 05762670, 56660995 Code(s): N17.9 - ACUTE KIDNEY FAILURE, UNSPECIFIED Status: Acute Current Visit: Yes - Problem List Review Problem List Initiated/Reviewed/Updated: Yes - My Orders Last 24 Hours: My Active Orders 11/14/20 Dinner [employer] Diet [DIET] 11/14/20 18:50 Oxygen Therapy [RC] PRN Up ad [place] [RC] ASDIRECTED VTE/DVT Education [RC] PER UNIT ROUTINE Vital Signs [RC] Q4H Acetaminophen [TylenoL] 650 mg PO Q4H PRN Ondansetron [Zofran] 4 mg IVPUSH Q4H PRN Resuscitation Status Routine 11/14/20 18:51 Accu Check [Blood Glucose Check, Bedside] [RC] QIDACANDBED 11/14/20 18:55 RT Aerosol Therapy [RC] ASDIRECTED Albuterol [Proventil Neb Soln] 2.5 mg NEB Q2H PRN 11/14/20 19:00 Heparin Sodium 5,000 units SUBCUT Q8H 11/14/20 21:00 DULoxetine [Cymbalta] 30 mg PO BID Montelukast [Singulair] 10 mg PO BEDTIME 11/14/20 22:00 Albuterol/Ipratropium [DuoNeb 3.0-0.5 MG/3 ML] 3 ml NEB Q4HRRT methylPREDNISolone Sod Succ [Solu-MEDROL] 40 mg IV TID 11/14/20 22:15 Pregabalin [Lyrica] 200 mg PO QPM 11/15/20 07:30 Insulin Aspart [NovoLOG] See Protocol SUBCUT TIDAC 11/15/20 07:45 Codeine/guaiFENesin [Robitussin AC] 5 ml PO Q6H PRN 11/15/20 09:00 Aspirin 81 mg PO DAILY Cetirizine [ZyrTEC] 10 mg PO DAILY Pantoprazole [ProTONIX] 40 mg PO DAILY Patient's Own Medication [Ptom] 1 each INH DAILY Pregabalin [Lyrica] 100 mg PO QAM carvediloL [Coreg] 3.125 mg PO DAILY 11/16/20 05:11 BASIC METABOLIC PANEL,BMP [CHEM] AM CBC WITH AUTO DIFF [HEME] AM - Plan Plan:: Assessment and Plan: 1. Asthma exacerbation: - Continue supplemental oxygen prn to maintain O2 sat > 92%, Duonebs q4 TATIANA and albuterol neb q2 PRN. Will decrease IV solumedrol 40 mg to BID. 2. YANNICK: - Will give IV 500 LR bolus and then give 1 L IV LR @ 100 cc/hr. 3. DM type 1: - ADA diet, novolog SSI and accuchecks TIDAC. Will resume home lantus regimen of 11 units in AM and 6 units in PM. HgbA1c 8.5. Continue to monitor sugars closely as they have been elevate secondary to IV steroids. - Patient currently not using her insulin pump due to malfunction. 4. Past medical history of CAD s/p CABG, EKATERINA, HTN and neuropathy: - Continue home medications. 5. DVT prophylaxis: - Heparin 5,000 units subcut qd. 6. GI prophylaxis: - Pantoprazole 40 mg qd.
[2020-11-15] MEDS: methylPREDNISolone Sodium Succinate 40 MG/1 ML SDV IV SCH ×2 (07:48→18:42)
[2020-11-15] MEDS ORDERED: Insulin Glargine,Human Rec. Analog 100 Units/ML 3 ML Pen SUBCUT SCH (09:00)
[2020-11-15] MEDS ORDERED: Insulin Detemir 100 Units/ML 3 ML Pen SUBCUT SCH (09:00)
[2020-11-15] MEDS: Pregabalin 50 MG Cap PO SCH (09:08)
[2020-11-15] MEDS: Cetirizine 10 MG Tab PO SCH (09:09)
[2020-11-15] MEDS: Carvedilol 3.125 MG Tab PO SCH (09:09)
[2020-11-15] MEDS: Pantoprazole 40 MG Tab.CR PO SCH (09:09)
[2020-11-15] MEDS: Aspirin 81 MG Tab.Chew PO SCH (09:10)
[2020-11-15] MEDS: Codeine/guaiFENesin 10-100 MG/5 ML Syrup 5 ML Cup PO PRN ×3 (09:10→21:28)
[2020-11-15] MEDS: Insulin Aspart 100 Units/ML 3 ML Pen SUBCUT SCH ×3 (09:13→18:11)
[2020-11-15] MEDS ORDERED: Insulin Glargine,Human Rec. Analog 100 Units/ML 3 ML Pen SUBCUT ONE (09:30)
[2020-11-15] MEDS ORDERED: Lactated Ringers 500 ML IV ONE (09:44)
[2020-11-15] MEDS ORDERED: Lactated Ringers 1,000 ML IV SCH (10:20)
[2020-11-15] MEDS: VILANTEROL INH SCH (10:20)
[2020-11-15] MEDS: FLUTICASONE INH SCH (10:20)
[2020-11-15] MEDS: Benzonatate 100 MG Cap PO PRN (15:12)
[2020-11-15] MEDS: Pregabalin 200 MG Cap PO SCH (18:12)
[2020-11-15] MEDS: Insulin Glargine,Human Rec. Analog 100 Units/ML 3 ML Pen SUBCUT SCH (21:18)
[2020-11-15] MEDS: Montelukast 10 MG Tab PO SCH (21:20)
[2020-11-16] MEDS: Heparin Sodium 5,000 Units/ML Vial SUBCUT SCH ×2 (04:36→11:36)
[2020-11-16] MEDS: Albuterol/Ipratropium 3.0-0.5 MG/3 ML Neb Soln NEB SCH (04:37)
[2020-11-16 06:09] LABS: CARBON DIOXIDE,CO2 23.4 mmol/L (21.0-32.0); POTASSIUM,K 4.3 mmol/L (3.5-5.1)
[2020-11-16] MEDS: Insulin Aspart 100 Units/ML 3 ML Pen SUBCUT SCH ×2 (07:08→11:37)
[2020-11-16] MEDS: Benzonatate 100 MG Cap PO PRN (07:10)
[2020-11-16] MEDS: methylPREDNISolone Sodium Succinate 40 MG/1 ML SDV IV SCH (07:15)
[2020-11-16] MEDS ORDERED: Albuterol/Ipratropium 3.0-0.5 MG/3 ML Neb Soln NEB ONE (07:30)
[2020-11-16] MEDS: Pregabalin 50 MG Cap PO SCH (08:53)
[2020-11-16] MEDS: Cetirizine 10 MG Tab PO SCH (08:54)
[2020-11-16] MEDS: Aspirin 81 MG Tab.Chew PO SCH (08:54)
[2020-11-16] MEDS: Carvedilol 3.125 MG Tab PO SCH (08:54)
[2020-11-16] MEDS: FLUTICASONE INH SCH (08:55)
[2020-11-16] MEDS: Pantoprazole 40 MG Tab.CR PO SCH (08:55)
[2020-11-16] MEDS: VILANTEROL INH SCH (08:55)
[2020-11-16] MEDS ORDERED: Insulin Glargine,Human Rec. Analog 100 Units/ML 3 ML Pen SUBCUT SCH ×2 (09:00)
[2020-11-16] MEDS ORDERED: Albuterol/Ipratropium 3.0-0.5 MG/3 ML Neb Soln NEB SCH (10:00)
--- NOTE | 2020-11-16 12:14 | PCM.DCSUM1 ---
Discharge Summary - Hospital Course Free Text/Narrative:: 50-year-old female admitted for asthma exacerbation. She has a PMH of asthma, type 1 DM, CAD s/p CABG, EKATERINA, neuropathy, HTN and cat/dog allergies. Patient reported feeling shortness of breath for 2-3 days prior to admission but got worse after cleaning up after her dog. Despite having cat and dog allergies, patient does have these pets at home. On admission, CXR unremarkable and COVID- 19 test negative. Patient treated with supplemental oxygen, Duonebs and IV solumedrol. She was eventually weaned off of oxygen and by day of discharged noted significant improvement in her breathing. Her blood glucose levels were elevated during her hospital course secondary to IV steroids but were better controlled after her lantus dose was increased. Patient was discharged in stable condition with scripts for prednisone, azithromycin, Cheratussin and tessalon pearls. Patient was advised to increase her AM lantus dose to 17 units while taking prednisone to account for her elevated blood sugars. Once prednisone course complete, then can resume regular home lantus regimen. Patient verbalized understanding. Advised to follow-up with PCP on discharge. - Discharge Data Discharge Date: 11/16/20 Discharge Disposition: Home, Self-Care 01 Condition: Stable - Referral to Home Health Primary Care Physician: Armand Navas MD - Discharge Diagnosis/Problem(s) (1) Asthma exacerbation SNOMED Code(s): 804111061 ICD Code: J45.901 - UNSPECIFIED ASTHMA WITH (ACUTE) EXACERBATION Status: Acute (2) Cat allergies SNOMED Code(s): 393608441 ICD Code: J30.81 - ALLERGIC RHINITIS DUE TO ANIMAL (CAT) (DOG) HAIR AND DANDER Status: Acute (3) Allergy to dogs SNOMED Code(s): 461782822 ICD Code: J30.81 - ALLERGIC RHINITIS DUE TO ANIMAL (CAT) (DOG) HAIR AND DANDER Status: Acute (4) Hx of CABG SNOMED Code(s): 490884922, 126091304 ICD Code: Z95.1 - PRESENCE OF AORTOCORONARY BYPASS GRAFT Status: Acute (5) CAD (coronary artery disease) SNOMED Code(s): 10111908 ICD Code: I25.10 - ATHSCL HEART DISEASE OF [place] CORONARY ARTERY W/O ANG PCTRS Status: Chronic (6) DM type 1 (diabetes mellitus, type 1) SNOMED Code(s): 76310732 ICD Code: E10.9 - TYPE 1 DIABETES MELLITUS WITHOUT COMPLICATIONS Status: Chronic Qualifiers: Diabetes mellitus complication status: with neurologic complications Diabetes mellitus complication detail: with unspecified neuropathy Qualified Code(s): E10.40 - Type 1 diabetes mellitus with diabetic neuropathy, unspecified (7) Diabetic neuropathy SNOMED Code(s): 487201411, 154582427, 275451972 ICD Code: E11.40 - TYPE 2 DIABETES MELLITUS WITH DIABETIC NEUROPATHY, UNSP Status: Chronic Qualifiers: Diabetes mellitus type: type 1 (8) Hypertension SNOMED Code(s): 96815360 ICD Code: I10 - ESSENTIAL (PRIMARY) HYPERTENSION Status: Chronic (9) EKATERINA (obstructive sleep apnea) SNOMED Code(s): 81571015 ICD Code: G47.33 - OBSTRUCTIVE SLEEP APNEA (ADULT) (PEDIATRIC) Status: Chronic (10) YANNICK (acute kidney injury) SNOMED Code(s): 94433028, 89682815 ICD Code: N17.9 - ACUTE KIDNEY FAILURE, UNSPECIFIED Status: Acute - Patient Instructions Diet: Diabetic Diet Activity: As Tolerated Notify Provider of: Fever, Increased Pain, Swelling and Redness, Drainage, Nausea and/or Vomiting - Discharge Plan *PRESCRIPTION DRUG MONITORING PROGRAM REVIEWED*: Not Applicable *COPY OF PRESCRIPTION DRUG MONITORING REPORT IN PATIENT KEE: Not Applicable Prescriptions/Med Rec: Azithromycin 250 mg PO DAILY 5 Days #6 tablet Codeine Phosphate/Guaifenesin [Guaifen-Codeine 100-10 mg/5 ml] 5 ml PO Q6H PRN #40 ml PRN Reason: Cough predniSONE [Prednisone] 40 mg PO DAILY 5 Days #10 tablet Benzonatate [Tessalon Perle] 200 mg PO TID PRN 3 Days #18 capsule PRN Reason: Cough Home Medications: Home Meds Insulin Aspart [NovoLOG] See Protocol SQ ASDIRECTED 10/22/19 [History] Pregabalin [Lyrica] 200 mg PO QPM 10/22/19 [History] Aspirin 81 mg PO DAILY 08/23/20 [History] Cholecalciferol (Vitamin D3) [Vitamin D3] 2,000 unit PO DAILY 08/23/20 [History] Estrogens, Conjugated [Premarin] 1.25 mg PO DAILY 08/23/20 [History] Fluticasone/Vilanterol [Breo Ellipta 200-25 MCG Inhalation Kit] 1 inh IH DAILY 08/23/20 [History] Mepolizumab [Nucala] 100 mg SUBCUT .EVERY 4 WEEKS 08/23/20 [History] carvediloL [Carvedilol] 3.125 mg PO DAILY 08/23/20 [History] Cetirizine HCl [All Day Allergy] 10 mg PO DAILY #30 capsule 08/26/20 [Rx] Insulin Glargine,Hum.Rec.Anlog [Lantus Solostar] 6 units SQ QPM 11/14/20 [History] Insulin Glargine,Hum.Rec.Anlog [Lantus Solostar] 12 units SQ QAM 11/14/20 [History] Montelukast [Singulair] 10 mg PO BEDTIME 11/14/20 [History] Pregabalin 100 mg PO QAM 11/14/20 [History] ALPRAZolam [Alprazolam] 0.5 mg PO BEDTIME 11/15/20 [History] Ibuprofen/Diphenhydramine Cit [Motrin PM Caplet] 1 tab PO BEDTIME 11/15/20 [History] Magnesium Oxide [Magnesium] 400 mg PO DAILY 11/15/20 [History] traZODone HCl [Trazodone HCl] 50 mg PO BEDTIME 11/15/20 [History] Azithromycin 250 mg PO DAILY 5 Days #6 tablet 11/16/20 [Rx] Benzonatate [Tessalon Perle] 200 mg PO TID PRN 3 Days #18 capsule 11/16/20 [Rx] Codeine Phosphate/Guaifenesin [Guaifen-Codeine 100-10 mg/5 ml] 5 ml PO Q6H PRN #40 ml 11/16/20 [Rx] predniSONE [Prednisone] 40 mg PO DAILY 5 Days #10 tablet 11/16/20 [Rx] Oxygen Therapy Mode: Room Air Patient Handouts: Azithromycin tablets, Bronchospasm, Adult, [id number], Asthma, Adult, [id number], Codeine; Guaifenesin oral solution or syrup, Prednisone tablets, Asthma Attack Prevention, Adult, Benzonatate capsules Referrals: Armand Navas MD [Primary Care Provider] - 11/23/20 1:00 pm - Discharge Summary/Plan Comment DC Time >30 min.: No - Patient Data Vitals - Most Recent: Last Vital Signs Temp 36.4 C 11/16/20 11:34 Pulse 97 11/16/20 11:34 Resp 20 11/16/20 11:34 BP 143/76 H 11/16/20 11:34 Pulse Ox 96 11/16/20 11:34 Weight - Most Recent: 85.275 kg I&O - Last 24 hours: Intake & Output 11/15/20 11/16/20 11/16/20 22:59 06:59 14:59 Intake Total 1040 780 Output Total 1600 2100 Balance -560 -1320 Lab Results - Last 24 hrs: Laboratory Results - last 24 hr 11/15/20 11/15/20 11/16/20 Range/Units 17:35 21:18 05:34 WBC 9.19 (4.0-11.0) K/uL RBC 3.82 L (4.30-5.90) M/uL Hgb 11.3 L (12.0-16.0) g/dL Hct 34.9 L (36.0-46.0) % MCV 91.4 (80.0-98.0) fL MCH 29.6 (27.0-32.0) pg MCHC 32.4 (31.0-37.0) g/dL RDW Std Deviation 45.0 (28.0-62.0) fl RDW Coeff of Margaret 14 (11.0-15.0) % Plt Count 233 (150-400) K/uL MPV 10.30 (7.40-12.00) fL Neut % (Auto) 79.5 (48.0-80.0) % Lymph % (Auto) 16.2 (16.0-40.0) % Cloud % (Auto) 4.2 (0.0-15.0) % Eos % (Auto) 0.0 (0.0-7.0) % Baso % (Auto) 0.1 (0.0-1.5) % Neut # (Auto) 7.3 H (1.4-5.7) K/uL Lymph # (Auto) 1.5 (0.6-2.4) K/uL Cloud # (Auto) 0.4 (0.0-0.8) K/uL Eos # (Auto) 0.0 (0.0-0.7) K/uL Baso # (Auto) 0.0 (0.0-0.1) K/uL Nucleated RBC % 0.0 /100WBC Nucleated RBCs # 0 K/uL Sodium (136-145) mmol/L Potassium (3.5-5.1) mmol/L Chloride (98-107) mmol/L Carbon Dioxide (21.0-32.0) mmol/L BUN (7.0-18.0) mg/dL Creatinine (0.6-1.0) mg/dL Est Cr Clr Drug Dosing mL/min Estimated GFR (MDRD) ml/min Glucose (74-106) mg/dL POC Glucose 146 H 295 H (60-110) mg/dL Calcium (8.5-10.1) mg/dL 11/16/20 11/16/20 11/16/20 Range/Units 05:34 06:23 11:21 WBC (4.0-11.0) K/uL RBC (4.30-5.90) M/uL Hgb (12.0-16.0) g/dL Hct (36.0-46.0) % MCV (80.0-98.0) fL MCH (27.0-32.0) pg MCHC (31.0-37.0) g/dL RDW Std Deviation (28.0-62.0) fl RDW Coeff of Margaret (11.0-15.0) % Plt Count (150-400) K/uL MPV (7.40-12.00) fL Neut % (Auto) (48.0-80.0) % Lymph % (Auto) (16.0-40.0) % Cloud % (Auto) (0.0-15.0) % Eos % (Auto) (0.0-7.0) % Baso % (Auto) (0.0-1.5) % Neut # (Auto) (1.4-5.7) K/uL Lymph # (Auto) (0.6-2.4) K/uL Cloud # (Auto) (0.0-0.8) K/uL Eos # (Auto) (0.0-0.7) K/uL Baso # (Auto) (0.0-0.1) K/uL Nucleated RBC % /100WBC Nucleated RBCs # K/uL Sodium 136 (136-145) mmol/L Potassium 4.3 (3.5-5.1) mmol/L Chloride 103 (98-107) mmol/L Carbon Dioxide 23.4 (21.0-32.0) mmol/L BUN 26 H (7.0-18.0) mg/dL Creatinine 1.0 (0.6-1.0) mg/dL Est Cr Clr Drug Dosing 60.46 mL/min Estimated GFR (MDRD) 58.7 ml/min Glucose 349 H (74-106) mg/dL POC Glucose 325 H 315 H (60-110) mg/dL Calcium 8.6 (8.5-10.1) mg/dL Med Orders - Current: Current Medications Acetaminophen (Tylenol) 650 mg PO Q4H PRN PRN Reason: Pain (Mild 1-3)/fever Last Admin: 11/14/20 22:11 Dose: 650 mg Documented by: Albuterol (Proventil Neb Soln) 2.5 mg NEB Q2H PRN PRN Reason: Dyspnea Albuterol/Ipratropium (Duoneb 3.0-0.5 Mg/3 Ml) 3 ml NEB Q4HRRT [facility] Last Admin: 11/16/20 09:48 Dose: 3 ml Documented by: Aspirin (Aspirin) 81 mg PO DAILY [facility] Last Admin: 11/16/20 08:54 Dose: 81 mg Documented by: Benzonatate (Tessalon Perles) 100 mg PO TID PRN PRN Reason: Cough Last Admin: 11/16/20 07:10 Dose: 100 mg Documented by: Carvedilol (Coreg) 3.125 mg PO DAILY [facility] Last Admin: 11/16/20 08:54 Dose: 3.125 mg Documented by: Cetirizine HCl (Zyrtec) 10 mg PO DAILY [facility] Last Admin: 11/16/20 08:54 Dose: 10 mg Documented by: Dextrose/Water (Dextrose 50% In Water) 50 ml IV ASDIRECTED PRN PRN Reason: Hypoglycemia Glucagon (Glucagen) 1 mg IM ASDIRECTED PRN PRN Reason: Hypoglycemia Guaifenesin/Codeine Phosphate (Robitussin Ac) 5 ml PO Q6H PRN PRN Reason: Cough Last Admin: 11/15/20 21:28 Dose: 5 ml Documented by: Heparin Sodium (Porcine) (Heparin Sodium) 5,000 units SUBCUT Q8H [facility] Last Admin: 11/16/20 11:36 Dose: 5,000 units Documented by: Ibuprofen (Motrin) 400 mg PO Q6H PRN PRN Reason: Pain Insulin Aspart (Novolog) 0 unit SUBCUT TIDAC [facility]; Protocol Last Admin: 11/16/20 11:37 Dose: 12 units Documented by: Insulin Glargine (Lantus Solostar) 6 units SUBCUT BEDTIME [facility] Last Admin: 11/15/20 21:18 Dose: 6 units Documented by: Insulin Glargine (Lantus Solostar) 15 units SUBCUT QAM [facility] Last Admin: 11/16/20 08:52 Dose: 15 units Documented by: Methylprednisolone Sodium Succinate (Solu-Medrol) 40 mg IV Q12H [facility] Last Admin: 11/16/20 07:15 Dose: 40 mg Documented by: Montelukast Sodium (Singulair) 10 mg PO BEDTIME [facility] Last Admin: 11/15/20 21:20 Dose: 10 mg Documented by: Ondansetron HCl (Zofran) 4 mg IVPUSH Q4H PRN PRN Reason: Nausea Pantoprazole Sodium (Protonix) 40 mg PO DAILY [facility] Last Admin: 11/16/20 08:55 Dose: 40 mg Documented by: Fluticasone/Vilanterol [Breo Ellipta] 200-25mcg 1 each INH DAILY [facility] Last Admin: 11/16/20 08:55 Dose: Not Given Documented by: Pregabalin (Lyrica) 200 mg PO QPM [facility] Last Admin: 11/15/20 18:12 Dose: 200 mg Documented by: Pregabalin (Lyrica) 100 mg PO QAM [facility] Last Admin: 11/16/20 08:53 Dose: 100 mg Documented by: Discontinued Medications Acetaminophen (Tylenol) 650 mg PO Q6H PRN PRN Reason: Pain Albuterol/Ipratropium (Duoneb 3.0-0.5 Mg/3 Ml) 3 ml NEB ONETIME ONE Stop: 11/14/20 16:17 Last Admin: 11/14/20 16:32 Dose: 3 ml Documented by: Albuterol/Ipratropium (Duoneb 3.0-0.5 Mg/3 Ml) 3 ml NEB ONETIME ONE Stop: 11/14/20 16:50 Last Admin: 11/14/20 16:55 Dose: 3 ml Documented by: Albuterol/Ipratropium (Duoneb 3.0-0.5 Mg/3 Ml) 3 ml NEB Q4HRRT [facility] Last Admin: 11/16/20 04:37 Dose: 3 ml Documented by: Albuterol/Ipratropium (Duoneb 3.0-0.5 Mg/3 Ml) 3 ml NEB ONETIME ONE Stop: 11/16/20 07:31 Last Admin: 11/16/20 07:13 Dose: 3 ml Documented by: Heparin Sodium (Porcine) (Heparin Lock Flush 100 Units/Ml) 300 units FLUSH ONETIME ONE Stop: 11/16/20 12:01 Last Admin: 11/16/20 12:11 Dose: 300 units Documented by: Lactated Ringer's (Ringers, Lactated) 500 mls @ 999 mls/hr IV .BOLUS ONE Stop: 11/14/20 19:26 Last Admin: 11/14/20 20:01 Dose: 999 mls/hr Documented by: Lactated Ringer's (Ringers, Lactated) 500 mls @ 999 mls/hr IV .BOLUS ONE Stop: 11/15/20 10:14 Last Admin: 11/15/20 09:55 Dose: 999 mls/hr Documented by: Lactated Ringer's (Ringers, Lactated) 1,000 mls @ 100 mls/hr IV ASDIRECTED [facility] Stop: 11/15/20 20:19 Last Admin: 11/15/20 10:32 Dose: 100 mls/hr Documented by: Insulin Aspart (Novolog) 6 unit SUBCUT NOW STA Stop: 11/14/20 17:14 Last Admin: 11/14/20 17:20 Dose: 6 units Documented by: Insulin Aspart (Novolog) 12 unit SUBCUT ONETIME ONE Stop: 11/15/20 06:08 Last Admin: 11/15/20 06:25 Dose: 12 units Documented by: Insulin Detemir (Levemir) 12 unit SUBCUT DAILY [facility] Insulin Detemir (Levemir) 6 unit SUBCUT BEDTIME [facility] Last Admin: 11/15/20 00:17 Dose: Not Given Documented by: Insulin Glargine (Lantus Solostar) 11 units SUBCUT QAM [facility] Last Admin: 11/15/20 09:15 Dose: 11 units Documented by: Insulin Glargine (Lantus Solostar) 12 units SUBCUT QAM [facility] Insulin Glargine (Lantus Solostar) 5 units SUBCUT ONETIME ONE Stop: 11/15/20 09:31 Last Admin: 11/15/20 09:55 Dose: 5 units Documented by: Methylprednisolone Sodium Succinate (Solu-Medrol) 60 mg IVPUSH ONETIME ONE Stop: 11/14/20 16:17 Last Admin: 11/14/20 16:50 Dose: 60 mg Documented by: Methylprednisolone Sodium Succinate (Solu-Medrol) 40 mg IV TID [facility] Last Admin: 11/15/20 07:48 Dose: 40 mg Documented by: Morphine Sulfate (Morphine) 1 mg IVPUSH ONETIME ONE Stop: 11/15/20 02:32 Last Admin: 11/15/20 02:46 Dose: 1 mg Documented by: Tramadol HCl (Ultram) 50 mg PO ONETIME ONE Stop: 11/15/20 02:03 Last Admin: 11/15/20 02:56 Dose: Not Given Documented by:
== END 2020-11-16 12:55 | disposition home or self-care (01) ==
LOC: MW.ED 16:13 → MW.MS 18:57
PROVIDERS: ADMIT Internal Medicine; ATTEND Internal Medicine
DX: J45.901 Unspecified asthma with (acute) exacerbation (principal); J30.81 Allergic rhinitis due to animal (cat) (dog) hair and dander; I25.10 Atherosclerotic heart disease of native coronary artery without angina pectoris; E10.40 Type 1 diabetes mellitus with diabetic neuropathy, unspecified; I10 Essential (primary) hypertension; G47.33 Obstructive sleep apnea (adult) (pediatric); N17.9 Acute kidney failure, unspecified; Z20.822 Contact with and (suspected) exposure to COVID-19; Z79.82 Long term (current) use of aspirin; Z79.899 Other long term (current) drug therapy; Z88.8 Allergy status to other drugs, medicaments and biological substances; Z95.1 Presence of aortocoronary bypass graft; Z98.890 Other specified postprocedural states
CPT/HCPCS: 36415; 71045; 80048; 82962; 83036; 84484; 85025; 87635; 93005; 94640; 96372; 96374; 96375; 96376; 99285; A9270; G0378; J1642; J1644; J1815; J2270; J2920; J7120; 93010; 99217; 99219; 99225; 99283; J7620-GY; U0002

== ENCOUNTER 2021-05-31 17:08 | Emergency (ER) | payer BC ==
--- NOTE | 2021-05-31 17:31 | EDM.PDOC ---
ED HPI GENERAL MEDICAL PROBLEM - General Chief Complaint: Skin Complaint Stated Complaint: ULCERS ON FEET Time Seen by Provider: 05/31/21 17:30 Source of Information: Reports: Patient History Limitations: Reports: No Limitations - History of Present Illness INITIAL COMMENTS - FREE TEXT/NARRATIVE: HISTORY AND PHYSICAL: History of present illness: Patient is a 51-year-old female who presents to the emergency room with concerns of infected diabetic foot ulcers. Patient is a type I diabetic, typically blood sugars run 160s and over the past week they have been in 200-300s. She states approximately a week ago she noticed an open sore to the base of the left great toe and on the arch of her right foot, unknown injury or trauma. She has been using Peroxide and Chlorophyll to try and heal the ulcerations up but over the week the areas have become more painful and larger in size. Patient states she does have diabetic neuropathy although has been working with her primary care provider, Dr. Dent, who has helped her regain sensation to her lower extremities, states they are painful. Patient states she has been golfing and bowling frequently over the past few months, has been wearing inappropriate footwear. She did call and make an appointment with Dr. Hills, but he is out of town until the end of the month, unable to be seen until 06/13/2021. Patient denies any fever, chills, headache, change in vision, syncope or near syncope. Denies any chest pain, back pain, shortness of breath or cough. Denies any abdominal pain, nausea, vomiting, diarrhea, constipation or dysuria. Has not noted any blood in urine or stool. Patient has been eating and drinking appropriately. Review of systems: As per history of present illness and below otherwise all systems reviewed and negative. Past medical history: As per history of present illness and as reviewed below otherwise noncontributory. Surgical history: As per history of present illness and as reviewed below otherwise noncontributory. Social history: See social history for further information Family history: As per history of present illness and as reviewed below otherwise noncontributory. Physical exam: General: Well developed and well nourished 51-year-old female. Alert and orientated x 3. Nontoxic in appearance and in no acute distress. Vital signs are stable and have been reviewed by me. Nursing notes were reviewed. HEENT: Atraumatic, normocephalic, pupils equal and reactive bilaterally, negative for conjunctival pallor or scleral icterus, mucous membranes moist, TMs normal bilaterally, throat clear, neck supple, nontender, trachea midline. No drooling or trismus noted. No meningeal signs. No hot potato voice noted. Lungs: Clear to auscultation bilaterally. No wheezes, rales, or rhonchi. Chest nontender. Normal work of breathing, no accessory muscles used. Heart: S1S2, regular rate and rhythm without overt murmur, gallops, or rubs. No JVD. No peripheral edema Abdomen: Soft, nondistended, nontender. Normoactive bowel sounds. Negative for masses or costovertebral tenderness. Skin: 2 cm ulceration/open sore to base of left great toe. 3 mm pink open sore to lateral aspect of right great toe. Calloused skin to arch of right foot without erythema or fluctuance. Remaining skin is intact, warm, dry. No lesions or rashes noted. Hematologic: No petechiae or purpra. Mucosa appropriate color and normal nail bed color and refill. Extremities: SEE SKIN for details. Atraumatic, moves all extremities per self without difficulty or deficits, negative for cords or calf pain. Cap refill less than 3 seconds. +CMS bilaterally. Strong pedal and pretibial pulse. Neurovascular unremarkable. Neuro: Awake, alert, oriented. Cranial nerves II through XII unremarkable. Cerebellum unremarkable. Motor and sensory unremarkable throughout. Exam nonfocal. Psychiatric: Mood and affect are appropriate. Normal thought process. Answering questions appropriately. Please note that the patient was seen and evaluated during the 2019 SARS-CoV-2 novel coronavirus pandemic period. Community viral transmission is ongoing at time of this encounter and the emergency department is operating under pandemic response procedures. Medical Decision Making: Patient is a 51-year-old female who presents to the emergency room with complaints of foot ulcerations over the past 1 week that are progressively getting worse. She states she attempted to get in to podiatry but is not able to be seen until 06/13/2021. She states she would not be here if it were not for her father who "forced me to come get checked out". Patient does have diabetic neuropathy although does have sensation to the foot ulcer. Physical exam is unremarkable with the exception of the noted skin sores. Patient states she has been washing her feet with chlorophyll, rubbing alcohol and peroxide which have discolored parts of her feet to a "dirty black" color. Patient does have poor access, refuses any type of peripheral IV access due to poor veins. We will get basic lab work and x-ray of the left great toe as the other 2 ulcerated areas are superficial. Lab work is unremarkable, besides her blood glucose being elevated. X-ray shows erosive changes within the proximal phalanx of the great toe at the interphalangeal joint level suspicious for osteomyelitis. Mild soft tissue swelling at the great toe noted. I did initially talk to Dr. Bean, hospitalist on-call who did want this patient ran by podiatry. I spoke with Dr. Karl Wheeler, foot and ankle specialist who is on-call at [facility] in [place]. He was able to review the x-ray and lab work. Patient is nonseptic appearing and is overall healthy otherwise. Patient is appropriate for close follow-up with him in the next few days. He would like the patient placed on doxycycline and to stop using the cleaning methods she has at home and just use soap and water. I have talked with the patient about today's findings, in addition to providing specific details for plan of care. She is aware of the conversation that was had with Dr. Wheeler and will call tomorrow morning to set up an appointment. We did discuss in great length signs and symptoms that would prompt her to return to the emergency room and the importance of timely follow-up with the specialist. She is comfortable with plan of care. Offers no concerns or complaints and has no further questions at this time. Reassessment of the patient is within normal limits. Vital signs are stable. Diagnostics: CBC, CMP, Lactate, COVID, toe x-ray, cultures x2 Therapeutics: Vancomycin 1gm IV, morphine Prescription: Doxycycline twice daily 100 mg x 7 days Impression: Diabetic foot ulcer Plan: 1. Today your evaluated on an emergent basis. You have a diabetic foot ulcer that is requiring further treatment. You received a dose of IV vancomycin. Doxycycline 100 mg twice daily over the next 7 days has been prescribed. 2. Keep the wounds clean and dry, wash gently with mild soap and water twice daily. Keep a bandage over the sites to prevent the them from rubbing on your shoes/socks. Stop using rubbing alcohol, chlorophyll, or any other antiseptics to clean the sites. Continue to monitor symptoms of infection. As we discussed, if your symptoms worsen or new symptoms develop - RETURN to the ED for re- evaluation. 3. I did talk with Dr. Karl Wheeler, Foot and Ankle physician at [facility] in [place], who is agreeable to seeing you within the next few days. Call tomorrow morning and set up your appointment. You need to tell the appointment desk that the ER doctor spoke with him on the phone and he would see you, even if it was a double booking. His clinic number is 4. Tylenol and/or ibuprofen as needed for pain management. Definitive disposition and diagnosis as appropriate pending reevaluation and review of above. Bilateral Foot Pain Score (Numeric/FACES): 6 - Related Data Allergies Allergy/AdvReac Type Severity Reaction Status Date / Time Odbapag-Tmo-Cgq Reductase Allergy Other Verified 11/14/20 16:15 Inhibitor Home Meds: Home Meds Insulin Aspart [NovoLOG] See Protocol SQ ASDIRECTED 10/22/19 [History] Pregabalin [Lyrica] 200 mg PO QPM 10/22/19 [History] Aspirin 81 mg PO DAILY 08/23/20 [History] Estrogens, Conjugated [Premarin] 1.25 mg PO DAILY 08/23/20 [History] Fluticasone/Vilanterol [Breo Ellipta 200-25 MCG Inhalation Kit] 1 inh IH DAILY 08/23/20 [History] Mepolizumab [Nucala] 100 mg SUBCUT .EVERY 4 WEEKS 08/23/20 [History] carvediloL [Carvedilol] 3.125 mg PO DAILY 08/23/20 [History] Cetirizine HCl [All Day Allergy] 10 mg PO DAILY #30 capsule 08/26/20 [Rx] Montelukast [Singulair] 10 mg PO BEDTIME 11/14/20 [History] Pregabalin 100 mg PO QAM 11/14/20 [History] Ibuprofen/Diphenhydramine Cit [Motrin PM Caplet] 1 tab PO BEDTIME 11/15/20 [History] Magnesium Oxide [Magnesium] 400 mg PO DAILY 11/15/20 [History] traZODone HCl [Trazodone HCl] 50 mg PO BEDTIME 11/15/20 [History] Doxycycline [Vibramycin] 100 mg PO BID 7 Days #14 tab 05/31/21 [Rx] Past Medical History HEENT History: Reports: Allergic Rhinitis Cardiovascular History: Reports: Bypass, Hypertension, NM Other Cardiovascular History: triple bypass Respiratory History: Reports: Asthma, Sleep Apnea Gastrointestinal History: Reports: None Genitourinary History: Reports: Diabetic Nephropathy ASTRO TECHNICIAN History: Reports: Other ASTRO TECHNICIAN History: C-sect twice, Hysterectomy Musculoskeletal History: Reports: None Neurological History: Reports: None Psychiatric History: Reports: None Endocrine/Metabolic History: Reports: Diabetes, Type I Hematologic History: Reports: None Immunologic History: Reports: None Oncologic (Cancer) History: Reports: None Dermatologic History: Reports: None - Infectious Disease History Infectious Disease History: Reports: None - Past Surgical History Head Surgeries/Procedures: Reports: None HEENT Surgical History: Reports: None Cardiovascular Surgical History: Reports: Coronary Artery Bypass Respiratory Surgical History: Reports: None GI Surgical History: Reports: Appendectomy Female Surgical History: Reports: Section Endocrine Surgical History: Reports: None Musculoskeletal Surgical History: Reports: Arthroscopic Knee, Shoulder Surgery, Other (See Below) Other Musculoskeletal Surgeries/Procedures:: Both shoulders Social & Family History - Family History Family Medical History: No Pertinent Family History - Caffeine Use Caffeine Use: Reports: None ED ROS GENERAL - Review of Systems Review Of Systems: Comprehensive ROS is negative, except as noted in HPI. ED EXAM, SKIN/RASH Exam: See Below (See dictation) Course - Vital Signs Last Recorded V/S: Last Vital Signs Temp 96.2 F L 05/31/21 17:28 Pulse 90 05/31/21 19:21 Resp 18 05/31/21 19:21 BP 140/71 05/31/21 19:21 Pulse Ox 95 05/31/21 19:21 - Orders/Labs/Meds Orders: Active Orders 24 hr Category Date Time Status Glucose [Blood Glucose Check, Bedside] [RC] ONETIME Care 05/31/21 17:30 Active CULTURE BLOOD [BC] Stat Lab 05/31/21 18:25 Received CULTURE BLOOD [BC] Stat Lab 05/31/21 19:01 Received Blood Culture x2 Reflex Set [OM.PC] Stat Oth 05/31/21 17:30 Ordered Labs: Laboratory Tests 05/31/21 05/31/21 05/31/21 Range/Units 17:46 18:25 18:25 WBC 4.75 (4.0-11.0) K/uL RBC 3.79 L (4.30-5.90) M/uL Hgb 11.7 L (12.0-16.0) g/dL Hct 34.3 L (36.0-46.0) % MCV 90.5 (80.0-98.0) fL MCH 30.9 (27.0-32.0) pg MCHC 34.1 (31.0-37.0) g/dL RDW Std Deviation 42.8 (28.0-62.0) fl RDW Coeff of Margaret 13 (11.0-15.0) % Plt Count 248 (150-400) K/uL MPV 9.90 (7.40-12.00) fL Neut % (Auto) 53.2 (48.0-80.0) % Lymph % (Auto) 39.4 (16.0-40.0) % Anderson % (Auto) 5.9 (0.0-15.0) % Eos % (Auto) 1.1 (0.0-7.0) % Baso % (Auto) 0.4 (0.0-1.5) % Neut # (Auto) 2.5 (1.4-5.7) K/uL Lymph # (Auto) 1.9 (0.6-2.4) K/uL Anderson # (Auto) 0.3 (0.0-0.8) K/uL Eos # (Auto) 0.1 (0.0-0.7) K/uL Baso # (Auto) 0.0 (0.0-0.1) K/uL Nucleated RBC % 0.0 /100WBC Nucleated RBCs # 0 K/uL Sodium 134 L (136-145) mmol/L Potassium 4.8 (3.5-5.1) mmol/L Chloride 100 (98-107) mmol/L Carbon Dioxide 25.2 (21.0-32.0) mmol/L BUN 23 H (7.0-18.0) mg/dL Creatinine 1.0 (0.6-1.0) mg/dL Est Cr Clr Drug Dosing 59.89 mL/min Estimated GFR (MDRD) 58.5 ml/min Glucose 395 H (74-106) mg/dL POC Glucose 336 H (70-99) mg/dL Lactic Acid (0.4-2.0) mmol/L Calcium 9.2 (8.5-10.1) mg/dL Total Bilirubin 0.2 (0.2-1.0) mg/dL AST 25 (15-37) IU/L ALT 29 (14-63) IU/L Alkaline Phosphatase 127 H (46-116) U/L Total Protein 5.9 L (6.4-8.2) g/dL Albumin 3.1 L (3.4-5.0) g/dL Globulin 2.8 (2.6-4.0) g/dL Albumin/Globulin Ratio 1.1 (0.9-1.6) SARS-CoV-2 RNA (DONATO) (NEGATIVE) 05/31/21 05/31/21 Range/Units 19:01 19:05 WBC (4.0-11.0) K/uL RBC (4.30-5.90) M/uL Hgb (12.0-16.0) g/dL Hct (36.0-46.0) % MCV (80.0-98.0) fL MCH (27.0-32.0) pg MCHC (31.0-37.0) g/dL RDW Std Deviation (28.0-62.0) fl RDW Coeff of Margaret (11.0-15.0) % Plt Count (150-400) K/uL MPV (7.40-12.00) fL Neut % (Auto) (48.0-80.0) % Lymph % (Auto) (16.0-40.0) % Anderson % (Auto) (0.0-15.0) % Eos % (Auto) (0.0-7.0) % Baso % (Auto) (0.0-1.5) % Neut # (Auto) (1.4-5.7) K/uL Lymph # (Auto) (0.6-2.4) K/uL Anderson # (Auto) (0.0-0.8) K/uL Eos # (Auto) (0.0-0.7) K/uL Baso # (Auto) (0.0-0.1) K/uL Nucleated RBC % /100WBC Nucleated RBCs # K/uL Sodium (136-145) mmol/L Potassium (3.5-5.1) mmol/L Chloride (98-107) mmol/L Carbon Dioxide (21.0-32.0) mmol/L BUN (7.0-18.0) mg/dL Creatinine (0.6-1.0) mg/dL Est Cr Clr Drug Dosing mL/min Estimated GFR (MDRD) ml/min Glucose (74-106) mg/dL POC Glucose (70-99) mg/dL Lactic Acid 1.6 (0.4-2.0) mmol/L Calcium (8.5-10.1) mg/dL Total Bilirubin (0.2-1.0) mg/dL AST (15-37) IU/L ALT (14-63) IU/L Alkaline Phosphatase (46-116) U/L Total Protein (6.4-8.2) g/dL Albumin (3.4-5.0) g/dL Globulin (2.6-4.0) g/dL Albumin/Globulin Ratio (0.9-1.6) SARS-CoV-2 RNA (DONATO) NEGATIVE (NEGATIVE) Meds: Medications Discontinued Medications Generic Name Dose Route Start Last Admin Trade Name Freq PRN Reason Stop Dose Admin Heparin Sodium (Porcine) 500 units 05/31/21 20:59 Heparin Sodium 100 Units/Ml 5 Ml Syringe FLUSH 05/31/21 21:00 NOW STA Vancomycin HCl 1 gm/ Sodium 250 mls @ 166 mls/hr 05/31/21 19:11 05/31/21 19:45 Chloride IV 05/31/21 20:41 166 mls/hr ONETIME ONE Administration Morphine Sulfate 4 mg 05/31/21 19:58 05/31/21 20:14 Morphine 4 Mg/Ml Syringe IVPUSH 05/31/21 19:59 4 mg ONETIME ONE Administration Departure - Departure Time of Disposition: 19:56 Disposition: Home, Self-Care 01 Clinical Impression: Diabetic foot ulcer Qualifiers: Diabetic foot ulcer location: toe Diabetes mellitus type: type 1 Laterality: unspecified laterality - Discharge Information Prescriptions: Doxycycline [Vibramycin] 100 mg PO BID 7 Days #14 tab Instructions: Diabetes Mellitus and Foot Care Referrals: PCP,None [Primary Care Provider] - Forms: ED Department Discharge Additional Instructions: The following information is given to patients seen in the emergency department who are being discharged to home. This information is to outline your options for follow-up care. We provide all patients seen in our emergency department with a follow-up referral. The need for follow-up, as well as the timing and circumstances, are variable depending upon the specifics of your emergency department visit. If you don't have a primary care physician on staff, we will provide you with a referral. We always advise you to contact your personal physician following an emergency department visit to inform them of the circumstance of the visit and for follow-up with them and/or the need for any referrals to a consulting specialist. The emergency department will also refer you to a specialist when appropriate. This referral assures that you have the opportunity for follow-up care with a specialist. All of these measure are taken in an effort to provide you with optimal care, which includes your follow-up. Under all circumstances we always encourage you to contact your private physician who remains a resource for coordinating your care. When calling for follow-up care, please make the office aware that this follow-up is from your recent emergency room visit. If for any reason you are refused follow-up, please contact the [facility] Emergency Department at and asked to speak to the emergency department charge nurse. [facility] [address] [place], [place] [id number] [place] [address] Thank you for choosing the [facility] emergency department in [place] for your medical needs today. It was a pleasure caring for you. Today you were seen in the emergency department for diabetic foot ulcer/infection. 1. Today your evaluated on an emergent basis. You have a diabetic foot ulcer that is requiring further treatment. You received a dose of IV vancomycin. Doxycycline 100 mg twice daily over the next 7 days has been prescribed. 2. Keep the wounds clean and dry, wash gently with mild soap and water twice daily. Keep a bandage over the sites to prevent the them from rubbing on your shoes/socks. Stop using rubbing alcohol, chlorophyll, or any other antiseptics to clean the sites. Continue to monitor symptoms of infection. As we discussed, if your symptoms worsen or new symptoms develop - RETURN to the ED for re- evaluation. 3. I did talk with Dr. Karl Wheeler, Foot and Ankle physician at [facility] in [place], who is agreeable to seeing you within the next few days. Call tomorrow morning and set up your appointment. You need to tell the appointment desk that the ER doctor spoke with him on the phone and he would see you, even if it was a double booking. His clinic number is 4. Tylenol and/or ibuprofen as needed for pain management. Sepsis Event Note (ED) - Focused Exam Vital Signs: Vital Signs Temp Pulse Resp BP Pulse Ox 05/31/21 19:21 90 18 140/71 95 05/31/21 17:28 96.2 F L 91 15 141/55 H 98 - My Orders Last 24 Hours: My Active Orders 05/31/21 17:30 Glucose [Blood Glucose Check, Bedside] [RC] ONETIME Blood Culture x2 Reflex Set [OM.PC] Stat 05/31/21 18:25 CULTURE BLOOD [BC] Stat 05/31/21 19:01 CULTURE BLOOD [BC] Stat - Assessment/Plan Last 24 Hours: My Active Orders 05/31/21 17:30 Glucose [Blood Glucose Check, Bedside] [RC] ONETIME Blood Culture x2 Reflex Set [OM.PC] Stat 05/31/21 18:25 CULTURE BLOOD [BC] Stat 05/31/21 19:01 CULTURE BLOOD [BC] Stat
[2021-05-31 18:57] LABS: CARBON DIOXIDE,CO2 25.2 mmol/L (21.0-32.0); POTASSIUM,K 4.8 mmol/L (3.5-5.1)
--- NOTE | 2021-05-31 19:02 | CR ---
Indication: Foot ulcer Technique: Three views Comparison: None Findings: Erosive changes within the proximal phalanx of the great toe at the interphalangeal joint level suspicious for osteomyelitis. Mild soft tissue swelling great toe. Dictated by Jesus Cunningham MD @ 05/31/2021 7:01:51 PM (Electronically Signed)
[2021-05-31] MEDS ORDERED: Morphine 4 MG/ML Syringe IVPUSH ONE (19:58)
== END 2021-05-31 21:34 | disposition home or self-care (01) ==
LOC: MW.ED 17:08
DX: E10.621 Type 1 diabetes mellitus with foot ulcer (principal); E10.40 Type 1 diabetes mellitus with diabetic neuropathy, unspecified; L97.529 Non-pressure chronic ulcer of other part of left foot with unspecified severity; I10 Essential (primary) hypertension; I25.2 Old myocardial infarction; Z20.822 Contact with and (suspected) exposure to COVID-19; Z88.8 Allergy status to other drugs, medicaments and biological substances; Z79.4 Long term (current) use of insulin; Z95.1 Presence of aortocoronary bypass graft; Z79.82 Long term (current) use of aspirin
CPT/HCPCS: 36415; 73660; 80053; 82947; 83605; 85025; 87040; 87635; 96365; 96366; 96375; 99283; J1642; J2270; J3370; J7050; U0002

== ENCOUNTER 2021-09-16 22:09 | Emergency (ER) | payer BC, MEDICARE ==
[2021-09-16] MEDS ORDERED: Albuterol/Ipratropium 3.0-0.5 MG/3 ML Neb Soln NEB ONE ×3 (22:14→22:15)
[2021-09-16] MEDS ORDERED: predniSONE 10 MG Tab PO ONE (22:15)
--- NOTE | 2021-09-16 22:49 | CR ---
INDICATION: Shortness of breath. TECHNIQUE: Chest 1 views. COMPARISON: 11/14/2020. FINDINGS: Cardiovascular and mediastinum: Heart size and vasculature are normal in caliber and appearance. Right-sided port catheter unchanged. Lungs and pleural spaces: Lungs are clear. No sign of infiltrate or mass. No sign of pleural effusion. No pneumothorax. Bones and soft tissues: No significant findings. IMPRESSION: No acute findings and no significant changes from the prior exam. Lungs are clear. Dictated by Milton Christianson MD @ 09/16/2021 10:47:24 PM (Electronically Signed)
[2021-09-16 23:30] LABS: CORONAVIRUS COVID-19 NAA NEGATIVE (NEGATIVE); INFLUENZA A NAA NEGATIVE (NEGATIVE); INFLUENZA B NAA NEGATIVE (NEGATIVE)
[2021-09-17] MEDS ORDERED: Albuterol/Ipratropium 3.0-0.5 MG/3 ML Neb Soln NEB ONE (00:12)
--- NOTE | 2021-09-17 00:43 | EDM.PDOC ---
ED HPI GENERAL MEDICAL PROBLEM - General Chief Complaint: Asthma Stated Complaint: SOB Time Seen by Provider: 09/16/21 22:13 - History of Present Illness INITIAL COMMENTS - FREE TEXT/NARRATIVE: HISTORY AND PHYSICAL: History of present illness: This is a 51-year-old female with a history significant for diabetes, CAD, COPD, obstructive sleep apnea, who presents ER today secondary to wheezing and shortness of breath with a cough times several days. Patient reports that she works at [employer] and has been having a significant amount of shortness of breath and wheezing throughout the course of the day despite using her inhalers. Patient denies any recent fevers, shakes, chills, nausea, vomiting, diarrhea, dysuria, frequency, urgency. Patient reports that she has discomfort and pressure in both her sinuses under her eyes. Patient reports nasal drainage. Patient denies any chest pressure. Patient denies any exertional pain. Patient has any pain rating down her arms or back. Patient denies any diaphoresis. Patient reports that her symptoms today are consistent with her prior bronchitis type symptoms. Review of systems: As per history of present illness and below otherwise all systems reviewed and negative. Past medical history: As per history of present illness and as reviewed below otherwise noncontributory. Surgical history: As per history of present illness and as reviewed below otherwise nonco ntributory. Social history: No reported history of drug abuse. Family history: As per history of present illness and as reviewed below otherwise noncontributory. Physical exam: HEENT: Atraumatic, normocephalic, pupils reactive, negative for conjunctival pallor or scleral icterus, mucous membranes moist, throat clear, neck supple, nontender, trachea midline. Lungs: Clear to auscultation, breath sounds equal bilaterally, chest nontender. Heart: S1S2, regular, negative for clicks, rubs, or JVD. Abdomen: Soft, nondistended, nontender. Negative for masses or hepatosplenomegaly. Negative for costovertebral tenderness. Pelvis: Stable nontender. Genitourinary: Deferred. Rectal: Deferred. Extremities: Atraumatic, negative for cords or calf pain. Neurovascular unremarkable. Neuro: Awake, alert, oriented. Cranial nerves II through XII unremarkable. Cerebellum unremarkable. Motor and sensory unremarkable throughout. Exam nonfocal. Diagnostics: Chest Xray: Normal cardiac silhouette No infiltrates or effusions identified. No PTX No evidence of acute bony fracture. As interpreted by ER MD: Yuridia September 16, 2021 10:45 PM: EKG: As interpreted by ER physician: Yuridia: Nonspecific ST-T wave abnormalities Normal axis No evidence of ST elevation NM Normal sinus rhythm heart rate of 94 Therapeutics: DuoNeb x3 DuoNeb x1 Prednisone Assessment and plan: 51-year-old female who presents ER today with signs symptoms consistent with bronchitis and exacerbation of her COPD/asthma. In the ED the patient was given DuoNeb x3 followed by a second course of 1 DuoNeb and prednisone. After her marah atments, her lungs are clear without any wheezing rales or rhonchi. Patient still having episodes of coughing but still has clear lungs and a pulse ox of 98% on room air. Patient is able to speak in full sentences without any tachypnea. Patient is ambulating in ER without shortness of breath. At this time, feel that the patient is stable for discharge home. I will start her on prednisone as well as Zithromax to help treat a sinus infection. Patient will continue utilizing her MDI at home. Reassessment at the time of disposition demonstrates that the patient is in no acute distress. The patient has remained stable throughout the entire ED visit and is without objective evidence for acute process requiring urgent intervention or hospitalization. The patient is stable for discharge, counseling is provided as documented above, discussed symptomatic treatment and specific conditions for return. I have spoken with the patient/caregiver and discussed todays findings, in addition to providing specific details for the plan of care. Questions are answered and there is agreement with the plan. Pulse ox 89% on room air Definitive disposition and diagnosis as appropriate pending reevaluation and review of above. - Related Data Allergies Allergy/AdvReac Type Severity Reaction Status Date / Time insulin degludec Allergy Hives Verified 09/16/21 22:35 [From Tresiba FlexTouch U-100] [id number] Reductase Allergy Other Verified 11/14/20 16:15 Inhibitor [Tkixdbw-Ill-Bja Reductase Inhibitor] Home Meds: Home Meds Insulin Aspart [NovoLOG] See Protocol SQ ASDIRECTED 10/22/19 [History] Pregabalin [Lyrica] 200 mg PO QPM 10/22/19 [History] Aspirin 81 mg PO DAILY 08/23/20 [History] Estrogens, Conjugated [Premarin] 1.25 mg PO DAILY 08/23/20 [History] Fluticasone/Vilanterol [Breo Ellipta 200-25 MCG Inhalation Kit] 1 inh IH DAILY 08/23/20 [History] Mepolizumab [Nucala] 100 mg SUBCUT .EVERY 4 WEEKS 08/23/20 [History] carvediloL [Carvedilol] 3.125 mg PO DAILY 08/23/20 [History] Cetirizine HCl [All Day Allergy] 10 mg PO DAILY #30 capsule 08/26/20 [Rx] Montelukast [Singulair] 10 mg PO BEDTIME 11/14/20 [History] Ibuprofen/Diphenhydramine Cit [Motrin PM Caplet] 1 tab PO BEDTIME 11/15/20 [History] Magnesium Oxide [Magnesium] 400 mg PO DAILY 11/15/20 [History] Past Medical History HEENT History: Reports: Allergic Rhinitis Cardiovascular History: Reports: Bypass, Hypertension, NM Other Cardiovascular History: triple bypass Respiratory History: Reports: Asthma, Sleep Apnea Gastrointestinal History: Reports: None Genitourinary History: Reports: Diabetic Nephropathy PULLER OUT History: Reports: Other PULLER OUT History: C-sect twice, Hysterectomy Musculoskeletal History: Reports: None Neurological History: Reports: None Psychiatric History: Reports: None, Anxiety Endocrine/Metabolic History: Reports: Diabetes, Type I Insulin Pump [employer]: [employer] Hematologic History: Reports: None Immunologic History: Reports: None Oncologic (Cancer) History: Reports: None Dermatologic History: Reports: None - Infectious Disease History Infectious Disease History: Reports: None - Past Surgical History Head Surgeries/Procedures: Reports: None HEENT Surgical History: Reports: None, Cataract Surgery, Naso-Sinus Surgery Other HEENT Surgeries/Procedures: Retinopathy Cardiovascular Surgical History: Reports: Coronary Artery Bypass Respiratory Surgical History: Reports: None GI Surgical History: Reports: Appendectomy Female Surgical History: Reports: Section, Hysterectomy, Oophorectomy, Salpingo-Oophorectomy Endocrine Surgical History: Reports: None Musculoskeletal Surgical History: Reports: Arthroscopic Knee, Shoulder Surgery, Other (See Below) Other Musculoskeletal Surgeries/Procedures:: Both shoulders Social & Family History - Family History Family Medical History: No Pertinent Family History - Tobacco Use Tobacco Use Status *Q: Never Tobacco User - Caffeine Use Caffeine Use: Reports: Coffee, Energy Drinks, Soda - Recreational Drug Use Recreational Drug Use: No ED ROS GENERAL - Review of Systems Review Of Systems: See Below ED EXAM, GENERAL - Physical Exam Exam: See Below Course - Vital Signs Last Recorded V/S: Last Vital Signs Temp 97.3 F 09/16/21 22:33 Pulse 98 09/16/21 22:33 Resp 20 09/16/21 22:33 BP 175/70 H 09/16/21 22:33 Pulse Ox 93 L 09/16/21 22:33 - Orders/Labs/Meds Orders: Active Orders 24 hr Category Date Time Status RT Aerosol Therapy [RC] ASDIRECTED Care 09/16/21 22:15 Active RT Aerosol Therapy [RC] ASDIRECTED Care 09/16/21 22:16 Active RT Aerosol Therapy [RC] ASDIRECTED Care 09/17/21 00:12 Active Labs: Laboratory Tests 09/16/21 Range/Units 22:38 Influenza Type A RNA NEGATIVE (NEGATIVE) Influenza Type B RNA NEGATIVE (NEGATIVE) SARS-CoV-2 RNA (DONATO) NEGATIVE (NEGATIVE) Meds: Medications Discontinued Medications Generic Name Dose Route Start Last Admin Trade Name Irais PRN Reason Stop Dose Admin Albuterol/Ipratropium 3 ml 09/16/21 22:14 09/16/21 22:33 Albuterol/Ipratropium 3.0-0.5 Mg/3 Ml Neb Anmol NEB 09/16/21 22:15 3 ml ONETIME ONE Administration Albuterol/Ipratropium 3 ml 09/16/21 22:15 09/16/21 22:33 Albuterol/Ipratropium 3.0-0.5 Mg/3 Ml Neb Sollizy NEB 09/16/21 22:16 3 ml ONETIME ONE Administration Albuterol/Ipratropium 3 ml 09/16/21 22:15 09/16/21 22:33 Albuterol/Ipratropium 3.0-0.5 Mg/3 Ml Neb Soln NEB 09/16/21 22:16 3 ml ONETIME ONE Administration Albuterol/Ipratropium 3 ml 09/17/21 00:12 09/17/21 00:18 Albuterol/Ipratropium 3.0-0.5 Mg/3 Ml Neb Soln NEB 01/02/22 00:13 3 ml ONETIME ONE Administration Prednisone 40 mg 09/16/21 22:15 09/16/21 22:31 Prednisone 10 Mg Tab PO 09/16/21 22:16 40 mg ONETIME ONE Administration Departure - Departure Time of Disposition: 00:41 Disposition: Home, Self-Care 01 Condition: Good Clinical Impression: Bronchitis, Asthma exacerbation - Discharge Information Instructions: Asthma, Adult, Acute Bronchitis, Adult, [id number] Additional Instructions: Your seen and evaluated in ER today secondary to signs and symptoms consistent with acute bronchitis/sinusitis. You have been given a total of 4 DuoNeb's here in the ED as well as prednisone and Zithromax. You will be discharged home with a prescription for Zithromax and prednisone to take over the next 5 days. Please go home and get plenty of rest, drink plenty of fluids, and return to the ED if you start having any new or concerning symptoms or if your shortness of breath should worsen. The following information is given to patients seen in the emergency department who are being discharged to home. This information is to outline your options for follow-up care. We provide all patients seen in our emergency department with a follow-up referral. The need for follow-up, as well as the timing and circumstances, are variable depending upon the specifics of your emergency department visit. If you don't have a primary care physician on staff, we will provide you with a referral. We always advise you to contact your personal physician following an emergency department visit to inform them of the circumstance of the visit and for follow-up with them and/or the need for any referrals to a consulting specialist. The emergency department will also refer you to a specialist when appropriate. This referral assures that you have the opportunity for follow-up care with a specialist. All of these measure are taken in an effort to provide you with optimal care, which includes your follow-up. Under all circumstances we always encourage you to contact your private physician who remains a resource for coordinating your care. When calling for follow-up care, please make the office aware that this follow-up is from your recent emergency room visit. If for any reason you are refused follow-up, please contact the [facility] Emergency Department at and asked to speak to the emergency department charge nurse. [facility] [address] [place] [id number] [facility] [address] [place] [id number] Sepsis Event Note (ED) - Evaluation Sepsis Screening Result: No Definite Risk - Focused Exam Vital Signs: Vital Signs Temp Pulse Resp BP Pulse Ox 09/16/21 22:33 97.3 F 98 20 175/70 H 93 L - My Orders Last 24 Hours: My Active Orders 09/16/21 22:15 RT Aerosol Therapy [RC] ASDIRECTED 09/16/21 22:16 RT Aerosol Therapy [RC] ASDIRECTED 09/17/21 00:12 RT Aerosol Therapy [RC] ASDIRECTED - Assessment/Plan Last 24 Hours: My Active Orders 09/16/21 22:15 RT Aerosol Therapy [RC] ASDIRECTED 09/16/21 22:16 RT Aerosol Therapy [RC] ASDIRECTED 09/17/21 00:12 RT Aerosol Therapy [RC] ASDIRECTED
[2021-09-17] MEDS ORDERED: Azithromycin 250 MG Tab PO ONE (00:50)
== END 2021-09-17 01:24 | disposition home or self-care (01) ==
LOC: MW.ED 22:09
DX: J45.901 Unspecified asthma with (acute) exacerbation (principal); I25.10 Atherosclerotic heart disease of native coronary artery without angina pectoris; J44.9 Chronic obstructive pulmonary disease, unspecified; E10.9 Type 1 diabetes mellitus without complications; I10 Essential (primary) hypertension; I25.2 Old myocardial infarction; Z95.1 Presence of aortocoronary bypass graft; Z88.8 Allergy status to other drugs, medicaments and biological substances; Z79.82 Long term (current) use of aspirin; Z79.899 Other long term (current) drug therapy; Z20.822 Contact with and (suspected) exposure to COVID-19
CPT/HCPCS: 0240U; 71045; 93005; 99285; A9270; J7620-GY

== ENCOUNTER 2021-11-21 22:13 | Emergency (ER) | payer BC, MEDICARE ==
[2021-11-21] MEDS ORDERED: Albuterol/Ipratropium 3.0-0.5 MG/3 ML Neb Soln ONE (22:41)
[2021-11-21] MEDS ORDERED: methylPREDNISolone Sodium Succinate 125 MG/2 ML SDV IVPUSH ONE (22:43)
[2021-11-21] MEDS ORDERED: Sodium Chloride 0.9% 2.5 ML Syringe FLUSH PRN (22:43)
[2021-11-21] MEDS ORDERED: Sodium Chloride 0.9% 10 ML Syringe FLUSH PRN (22:43)
[2021-11-21] MEDS ORDERED: Albuterol/Ipratropium 3.0-0.5 MG/3 ML Neb Soln NEB ONE ×3 (22:43→22:46)
[2021-11-21] MEDS ORDERED: Magnesium Sulfate/Water 2 GM in Premix Bag 1 BAG IV ONE (23:30)
[2021-11-21 23:43] LABS: CORONAVIRUS COVID-19 NAA NEGATIVE (NEGATIVE); INFLUENZA A NAA NEGATIVE (NEGATIVE); INFLUENZA B NAA NEGATIVE (NEGATIVE)
[2021-11-21] MEDS ORDERED: LORazepam 1 MG Tab PO ONE (23:50)
[2021-11-21] MEDS ORDERED: traMADol 50 MG Tab PO ONE (23:51)
[2021-11-22] MEDS ORDERED: Sodium Chloride 0.9% 1,000 ML IV ONE (00:33)
[2021-11-22 00:42] LABS: CARBON DIOXIDE,CO2 22.3 mmol/L (21.0-32.0); CHLORIDE,CL 103 mmol/L (98-107); POTASSIUM,K 4.1 mmol/L (3.5-5.1); SODIUM,NA 141 mmol/L (136-145)
[2021-11-22 00:47] LABS: BLOOD UREA NITROGEN,BUN 27 mg/dL (7.0-18.0); GLUCOSE RANDOM 185 mg/dL (74-106)
[2021-11-22] MEDS ORDERED: Azithromycin 250 MG Tab PO ONE (01:39)
== END 2021-11-22 02:11 | disposition home or self-care (01) ==
LOC: MW.ED 22:13
DX: J45.901 Unspecified asthma with (acute) exacerbation (principal); J96.90 Respiratory failure, unspecified, unspecified whether with hypoxia or hypercapnia; E11.21 Type 2 diabetes mellitus with diabetic nephropathy; I10 Essential (primary) hypertension; I25.2 Old myocardial infarction; Z88.8 Allergy status to other drugs, medicaments and biological substances; Z79.4 Long term (current) use of insulin; Z79.82 Long term (current) use of aspirin; Z95.1 Presence of aortocoronary bypass graft; Z20.822 Contact with and (suspected) exposure to COVID-19
CPT/HCPCS: 0240U; 36415; 71045; 80053; 84484; 85025; 93005; 94640; 96365; 96375; 99285; A9270; J2930; J3475; J7030; J7620-GY

== ENCOUNTER 2021-12-13 10:19 | Day surgery (SDC) | payer BC, MEDICARE ==
[~2021-12-13 10:19] MED LIST: Lactated Ringers 1,000 ML IV SCH
[2021-12-13] MEDS ORDERED: fentaNYL 100 MCG/2 ML SDV IVPUSH PRN (11:23)
[2021-12-13] MEDS ORDERED: Ondansetron 4 MG/2 ML SDV IVPUSH PRN (11:23)
[2021-12-13] MEDS ORDERED: HYDROmorphone 1 MG/ML Syringe IVPUSH PRN (11:23)
[2021-12-13] MEDS ORDERED: Naloxone 0.4 MG/ML SDV IVPUSH PRN (11:23)
[2021-12-13] MEDS ORDERED: Albuterol 0.083% 2.5 MG/3 ML Neb Soln NEB PRN (11:23)
[2021-12-13] MEDS ORDERED: Metoclopramide 10 MG/2 ML SDV IVPUSH PRN (11:23)
[2021-12-13] MEDS ORDERED: Lidocaine 1% 5 ML VIAL ONE (11:39)
[2021-12-13] MEDS ORDERED: fentaNYL 100 MCG/2 ML SDV ONE (11:39)
[2021-12-13] MEDS ORDERED: Propofol 200 MG/20 ML SDV ONE (11:39)
[2021-12-13] MEDS ORDERED: 50% Dextrose in Water 50 ML Syringe IVPUSH PRN (11:41)
[2021-12-13] MEDS ORDERED: Glucagon,Human Recombinant 1 MG Vial IM PRN (11:41)
[2021-12-13] MEDS ORDERED: Insulin Aspart 100 Units/ML 3 ML Pen SUBCUT ONE (11:50)
[2021-12-13] MEDS ORDERED: Bupivacaine 0.5% 30 ML SDV ONE (11:51)
[2021-12-13] MEDS ORDERED: ceFAZolin 2 GM in Premix Bag 1 BAG IV ONE (11:59)
[2021-12-13] MEDS ORDERED: Sodium Chloride 0.9% 1,000 ML IV SCH (12:00)
== END 2021-12-13 12:45 | disposition home or self-care (01) ==
LOC: MW.SDS 10:19
PROVIDERS: ATTEND Podiatrist Foot & Ankle Surgery
DX: E10.42 Type 1 diabetes mellitus with diabetic polyneuropathy (principal); Z53.09 Procedure and treatment not carried out because of other contraindication; E10.319 Type 1 diabetes mellitus with unspecified diabetic retinopathy without macular edema; I25.10 Atherosclerotic heart disease of native coronary artery without angina pectoris; I25.2 Old myocardial infarction; J45.909 Unspecified asthma, uncomplicated; Z88.8 Allergy status to other drugs, medicaments and biological substances; Z87.891 Personal history of nicotine dependence; Z79.899 Other long term (current) drug therapy
CPT/HCPCS: 82947; J1815; J7030; 01480; J2704; J3010; J3490

== ENCOUNTER 2021-12-14 06:02 | Day surgery (SDC) | payer BC, MEDICARE ==
[2021-12-14] MEDS ORDERED: Naloxone 0.4 MG/ML SDV IVPUSH PRN (07:44)
[2021-12-14] MEDS ORDERED: Albuterol 0.083% 2.5 MG/3 ML Neb Soln NEB PRN (07:44)
[2021-12-14] MEDS ORDERED: Metoclopramide 10 MG/2 ML SDV IVPUSH PRN (07:44)
[2021-12-14] MEDS ORDERED: Ondansetron 4 MG/2 ML SDV IVPUSH PRN (07:44)
[2021-12-14] MEDS ORDERED: Sodium Chloride 0.9% 1,000 ML IV SCH (08:00)
[2021-12-14] MEDS: HYDROmorphone 1 MG/ML Syringe IVPUSH PRN ×2 (10:15→10:28)
[2021-12-14] MEDS: fentaNYL 100 MCG/2 ML SDV IVPUSH PRN ×2 (10:19→10:24)
== END 2021-12-14 13:14 | disposition home or self-care (01) ==
LOC: MW.SDS 06:02
PROVIDERS: ATTEND Podiatrist Foot & Ankle Surgery
DX: E11.621 Type 2 diabetes mellitus with foot ulcer (principal); E11.69 Type 2 diabetes mellitus with other specified complication; M86.171 Other acute osteomyelitis, right ankle and foot; L97.519 Non-pressure chronic ulcer of other part of right foot with unspecified severity
CPT/HCPCS: 28810; 82947; 87070; 87075; 87077; 87102; 87186; 87205; J1170; J3010; 88305; 88307; 88311

== ENCOUNTER 2022-02-17 18:04 | Emergency (ER) | payer BC, MEDICARE ==
[2022-02-17] MEDS ORDERED: Acetaminophen/Codeine 120-12 MG/5 ML Soln 5 ML UD Cup PO ONE (18:31)
[2022-02-17 19:05] LABS: CORONAVIRUS COVID-19 NAA NEGATIVE (NEGATIVE); INFLUENZA A NAA NEGATIVE (NEGATIVE); INFLUENZA B NAA NEGATIVE (NEGATIVE)
== END 2022-02-17 20:22 | disposition home or self-care (01) ==
LOC: MW.ED 18:04
DX: J01.00 Acute maxillary sinusitis, unspecified (principal); J02.9 Acute pharyngitis, unspecified; E10.649 Type 1 diabetes mellitus with hypoglycemia without coma; I10 Essential (primary) hypertension; I25.2 Old myocardial infarction; Z20.822 Contact with and (suspected) exposure to COVID-19; Z88.8 Allergy status to other drugs, medicaments and biological substances; Z79.4 Long term (current) use of insulin
CPT/HCPCS: 0240U; 71045; 82947; 87651; 99283; A9270

== ENCOUNTER 2022-04-05 16:02 | Inpatient (IN) | payer BC, MEDICARE, OTHER ==
[2022-04-05] MEDS ORDERED: Sodium Chloride 0.9% 2.5 ML Syringe FLUSH PRN (16:32)
[2022-04-05] MEDS ORDERED: Sodium Chloride 0.9% 10 ML Syringe FLUSH PRN (16:32)
[2022-04-05] MEDS ORDERED: Sodium Chloride 0.9% 1,000 ML IV ONE ×3 (17:39→22:38)
[2022-04-05 18:56] LABS: CARBON DIOXIDE,CO2 28.5 mmol/L (21.0-32.0); POTASSIUM,K 5.4 mmol/L (3.5-5.1)
[2022-04-05] MEDS ORDERED: cefTRIAXone 1 GM in Sodium Chloride 0.9% 50 ML IV ONE (20:55)
[2022-04-05 21:54] LABS: CARBON DIOXIDE,CO2 26.7 mmol/L (21.0-32.0); POTASSIUM,K 4.9 mmol/L (3.5-5.1)
[2022-04-05] MEDS ORDERED: Acetaminophen 325 MG Tab PO PRN (23:53)
[2022-04-05] MEDS ORDERED: Albuterol/Ipratropium 3.0-0.5 MG/3 ML Neb Soln NEB PRN (23:53)
[2022-04-05] MEDS ORDERED: Glucagon,Human Recombinant 1 MG Vial IM PRN (23:56)
[2022-04-05] MEDS ORDERED: 50% Dextrose in Water 50 ML Syringe IVPUSH PRN (23:56)
[2022-04-06] MEDS: Insulin Glargine,Hum.Rec.Anlog 100 UNIT/ML 3 ML Pen SUBCUT SCH ×2 (01:18→10:24)
[2022-04-06] MEDS: Pregabalin 200 MG Cap PO SCH ×4 (01:19→22:28)
[2022-04-06] MEDS: Montelukast 10 MG Tab PO SCH ×2 (01:19→20:22)
[2022-04-06] MEDS: Lactated Ringers 1,000 ML IV SCH ×3 (01:19→20:22)
[2022-04-06 06:28] LABS: HEMOGLOBIN A1C 8.4 %
[2022-04-06 06:32] LABS: CARBON DIOXIDE,CO2 24.8 mmol/L (21.0-32.0)
[2022-04-06] MEDS: Insulin Aspart 100 Units/ML 3 ML Pen SUBCUT SCH ×2 (07:54→13:36)
[2022-04-06] MEDS ORDERED: Insulin Aspart 100 Units/ML 3 ML Pen SUBCUT ONE ×2 (10:25→22:30)
[2022-04-06] MEDS ORDERED: diphenhydrAMINE 50 MG/ML SDV IVPUSH ONE ×2 (13:50→16:30)
[2022-04-06] MEDS ORDERED: Ketorolac 30 MG/ML SDV IVPUSH ONE ×2 (13:50→16:30)
[2022-04-06] MEDS ORDERED: Metoclopramide 10 MG/2 ML SDV IVPUSH ONE ×2 (13:50→16:30)
[2022-04-06] MEDS ORDERED: Pregabalin 200 MG Cap PO SCH (18:00)
[2022-04-06] MEDS: cefTRIAXone 1 GM in Sodium Chloride 0.9% 50 ML IV SCH (20:22)
[2022-04-07] MEDS ORDERED: Insulin Aspart 100 Units/ML 3 ML Pen SUBCUT ONE ×2 (00:12→11:22)
[2022-04-07] MEDS ORDERED: Ketorolac 30 MG/ML SDV IVPUSH ONE ×2 (00:13→20:13)
[2022-04-07] MEDS ORDERED: diphenhydrAMINE 50 MG/ML SDV IVPUSH ONE ×2 (00:14→20:14)
[2022-04-07] MEDS: Pregabalin 200 MG Cap PO SCH ×3 (06:18→21:01)
[2022-04-07] MEDS: Lactated Ringers 1,000 ML IV SCH ×2 (07:35→15:46)
[2022-04-07 08:58] LABS: POTASSIUM,K 4.9 mmol/L (3.5-5.1)
[2022-04-07] MEDS ORDERED: 50% Dextrose in Water 50 ML Syringe IVPUSH PRN ×2 (09:35→11:21)
[2022-04-07] MEDS ORDERED: Glucagon,Human Recombinant 1 MG Vial IM PRN ×2 (09:35→11:21)
[2022-04-07] MEDS: Insulin Aspart 100 Units/ML 3 ML Pen SUBCUT SCH ×2 (12:02→18:35)
[2022-04-07] MEDS ORDERED: Rimegepant Sulfate [Nurtec Odt] 75 MG Tab.Rapdis PO PRN (13:05)
[2022-04-07] MEDS: Isosorbide Mononitrate 30 MG Tab.ER PO SCH (13:53)
[2022-04-07] MEDS: VILANTEROL INH SCH (14:30)
[2022-04-07] MEDS: FLUTICASONE INH SCH (14:30)
[2022-04-07] MEDS: Montelukast 10 MG Tab PO SCH (20:42)
[2022-04-07] MEDS: cefTRIAXone 1 GM in Sodium Chloride 0.9% 50 ML IV SCH (20:57)
[2022-04-07] MEDS ORDERED: Insulin Glargine,Hum.Rec.Anlog 100 UNIT/ML 3 ML Pen SUBCUT SCH (21:00)
[2022-04-08] MEDS: Lactated Ringers 1,000 ML IV SCH ×2 (00:19→08:26)
[2022-04-08] MEDS: Pregabalin 200 MG Cap PO SCH ×2 (06:36→14:03)
[2022-04-08] MEDS: Insulin Aspart 100 Units/ML 3 ML Pen SUBCUT SCH ×2 (06:36→11:10)
[2022-04-08] MEDS: Isosorbide Mononitrate 30 MG Tab.ER PO SCH (08:27)
[2022-04-08] MEDS: VILANTEROL INH SCH (08:32)
[2022-04-08] MEDS: FLUTICASONE INH SCH (08:32)
[2022-04-08] MEDS ORDERED: Insulin Glargine,Hum.Rec.Anlog 100 UNIT/ML 3 ML Pen SUBCUT ONE (11:23)
[2022-04-08] MEDS ORDERED: Insulin Aspart 100 Units/ML 3 ML Pen SUBCUT ONE (12:40)
== END 2022-04-08 16:00 | disposition home or self-care (01) | DRG 813 ==
LOC: MW.ED 16:02 → MW.MS 22:51 → OBSVTOIN 04-07 13:32 → MW.MS 04-07 17:00
PROVIDERS: ADMIT Student in an Organized Health Care Education/Training Program; ATTEND Student in an Organized Health Care Education/Training Program
DX: T85.694A Other mechanical complication of insulin pump, initial encounter (principal); E10.65 Type 1 diabetes mellitus with hyperglycemia; N39.0 Urinary tract infection, site not specified; N17.9 Acute kidney failure, unspecified; I10 Essential (primary) hypertension; J45.909 Unspecified asthma, uncomplicated; E86.0 Dehydration; I25.10 Atherosclerotic heart disease of native coronary artery without angina pectoris; E10.41 Type 1 diabetes mellitus with diabetic mononeuropathy; Z20.822 Contact with and (suspected) exposure to COVID-19; I25.2 Old myocardial infarction; Z95.1 Presence of aortocoronary bypass graft; Z79.899 Other long term (current) drug therapy
CPT/HCPCS: 36415; 80048; 80053; 81001; 82009; 82947; 83036; 83605; 83735; 84100; 84484; 85025; 86308; 87086; 87088; 87186; 93005; 93010; 96361; 96365; 96375; 96376; 97110-GP; 97112-GP; 97163-GP; 99219; 99232; 99238; 99284; 99285-25; A9270-GY; G0378; J0696; J1200; J1642; J1815-GY; J1885; J2765; J3490; J7030; J7120; U0002

== ENCOUNTER 2022-04-09 17:26 | Emergency (ER) | payer BC, MEDICARE, OTHER ==
[2022-04-09] MEDS ORDERED: Acetaminophen/HYDROcodone 325-5 MG Tab PO ONE (19:17)
[2022-04-09] MEDS ORDERED: Codeine/Promethazine 10-6.25 MG/5 ML Syrup 5 ML UD Syringe PO STA (19:44)
== END 2022-04-09 19:45 | disposition home or self-care (01) ==
LOC: MW.ED 17:26
DX: J32.0 Chronic maxillary sinusitis (principal); I10 Essential (primary) hypertension; E10.9 Type 1 diabetes mellitus without complications; I25.2 Old myocardial infarction; Z95.1 Presence of aortocoronary bypass graft; Z88.8 Allergy status to other drugs, medicaments and biological substances
CPT/HCPCS: 99283

== ENCOUNTER 2022-04-20 13:07 | Emergency (ER) | payer BC, MEDICARE, OTHER ==
[2022-04-20] MEDS ORDERED: Diphtheria,Pertussis(Acell),Tetanus Vaccine 0.5 ML Syringe IM ONE (13:16)
[2022-04-20] MEDS ORDERED: Acetaminophen/HYDROcodone 325-5 MG Tab PO ONE (13:16)
[2022-04-20] MEDS ORDERED: Ondansetron 4 MG Tab.DIS PO ONE (13:16)
[2022-04-20] MEDS ORDERED: Bacitracin Oint 28.35 GM Tube TOP STA (13:17)
== END 2022-04-20 15:36 | disposition home or self-care (01) ==
LOC: MW.ED 13:07
DX: S20.211A Contusion of right front wall of thorax, initial encounter (principal); S80.212A Abrasion, left knee, initial encounter; S80.211A Abrasion, right knee, initial encounter; S00.212A Abrasion of left eyelid and periocular area, initial encounter; I10 Essential (primary) hypertension; E10.9 Type 1 diabetes mellitus without complications; Z88.8 Allergy status to other drugs, medicaments and biological substances; Z79.899 Other long term (current) drug therapy; Z95.1 Presence of aortocoronary bypass graft; Z23 Encounter for immunization; W01.198A Fall on same level from slipping, tripping and stumbling with subsequent striking against other object, initial encounter
CPT/HCPCS: 71101; 73562; 90471; 90715; 93005; 99284; A9270; 93010; 99283

== ENCOUNTER 2022-04-27 11:25 | Emergency (ER) | payer BC, MEDICARE, OTHER ==
[2022-04-27] MEDS ORDERED: Tetracaine HCl/PF 0.5% 4 ML Bottle EYEBOTH ONE (14:17)
== END 2022-04-27 16:38 | disposition home or self-care (01) ==
LOC: MW.ED 11:25
DX: S02.31XA Fracture of orbital floor, right side, initial encounter for closed fracture (principal); S29.9XXA Unspecified injury of thorax, initial encounter; H11.31 Conjunctival hemorrhage, right eye; I10 Essential (primary) hypertension; I25.2 Old myocardial infarction; E10.9 Type 1 diabetes mellitus without complications; Z88.6 Allergy status to analgesic agent; Z88.8 Allergy status to other drugs, medicaments and biological substances; Z79.4 Long term (current) use of insulin; Z79.899 Other long term (current) drug therapy; Z90.710 Acquired absence of both cervix and uterus; W01.198A Fall on same level from slipping, tripping and stumbling with subsequent striking against other object, initial encounter
CPT/HCPCS: 70450; 70450-26; 70486; 70486-26; 71045; 71045-26; 99284

== ENCOUNTER 2022-09-14 07:23 | Emergency (ER) | payer BC, OTHER ==
[2022-09-14] MEDS ORDERED: Sodium Chloride 0.9% 10 ML Syringe FLUSH PRN (07:45)
[2022-09-14] MEDS ORDERED: Sodium Chloride 0.9% 2.5 ML Syringe FLUSH PRN (07:45)
[2022-09-14] MEDS ORDERED: Sodium Chloride 0.9% 1,000 ML IV ONE (07:46)
[2022-09-14] MEDS ORDERED: Ondansetron 4 MG/2 ML SDV IVPUSH ONE ×2 (07:46→09:55)
[2022-09-14] MEDS ORDERED: 50% Dextrose in Water 50 ML Syringe IVPUSH ONE ×2 (08:12→09:15)
[2022-09-14 09:16] LABS: CARBON DIOXIDE,CO2 28.5 mmol/L (21.0-32.0); POTASSIUM,K 4.1 mmol/L (3.5-5.1)
[2022-09-14] MEDS ORDERED: Lactated Ringers 1,000 ML IV ONE (09:55)
[2022-09-14] MEDS ORDERED: Ketorolac 30 MG/ML SDV IVPUSH ONE (09:59)
[2022-09-14] MEDS ORDERED: Heparin Sodium 100 Units/ML 3 ML Syringe FLUSH PRN (14:11)
== END 2022-09-14 14:27 | disposition home or self-care (01) ==
LOC: MW.ED 07:23
DX: K52.1 Toxic gastroenteritis and colitis (principal); T36.8X5A Adverse effect of other systemic antibiotics, initial encounter; I10 Essential (primary) hypertension; I25.2 Old myocardial infarction; J45.909 Unspecified asthma, uncomplicated; E10.9 Type 1 diabetes mellitus without complications; Z88.7 Allergy status to serum and vaccine; Z88.8 Allergy status to other drugs, medicaments and biological substances; Z79.899 Other long term (current) drug therapy
CPT/HCPCS: 36415; 80053; 82947; 83735; 85025; 96361; 96374; 96375; 96376; 99284; J1642; J1885; J2405; J3490; J7030; J7120

== ENCOUNTER 2022-12-22 21:00 | Observation (INO) | payer BC ==
[2022-12-22] MEDS ORDERED: HYDROmorphone 1 MG/ML Syringe IVPUSH ONE (22:12)
[2022-12-22] MEDS ORDERED: Ibuprofen 400 MG Tab PO ONE (22:12)
[2022-12-22] MEDS: Acetaminophen 325 MG Tab PO ONE ×2 (22:48→22:53)
[2022-12-22] MEDS ORDERED: Iopamidol 755 MG/ML 500 ML Multipack Bottle IVPUSH ONE (23:27)
[2022-12-22 23:36] LABS: CARBON DIOXIDE,CO2 26.5 mmol/L (21.0-32.0); POTASSIUM,K 4.8 mmol/L (3.5-5.1)
[2022-12-23] MEDS ORDERED: HYDROmorphone 1 MG/ML Syringe IVPUSH ONE ×2 (00:19→01:14)
[2022-12-23] MEDS ORDERED: 50% Dextrose in Water 50 ML Syringe IVPUSH ONE (01:39)
[2022-12-23] MEDS ORDERED: HYDROmorphone 1 MG/ML Syringe IVPUSH SCH (01:45)
[2022-12-23] MEDS ORDERED: Dextrose 10% in Water 500 ML IV SCH (01:45)
[2022-12-23] MEDS ORDERED: 50% Dextrose in Water 50 ML Syringe ONE (01:52)
[2022-12-23] MEDS ORDERED: Albuterol/Ipratropium 3.0-0.5 MG/3 ML Neb Soln NEB PRN (01:59)
[2022-12-23] MEDS ORDERED: Ondansetron 4 MG/2 ML SDV IVPUSH PRN (01:59)
[2022-12-23] MEDS ORDERED: HYDROmorphone 1 MG/ML Syringe IVPUSH PRN (01:59)
[2022-12-23] MEDS ORDERED: Acetaminophen 325 MG Tab PO PRN (01:59)
[2022-12-23] MEDS ORDERED: Bisacodyl 5 MG Tab PO PRN (01:59)
[2022-12-23] MEDS ORDERED: Glucagon,Human Recombinant 1 MG Vial IM PRN ×2 (01:59→09:55)
[2022-12-23] MEDS ORDERED: Docusate Sodium 100 MG Cap PO PRN (01:59)
[2022-12-23] MEDS ORDERED: 50% Dextrose in Water 50 ML Syringe IVPUSH PRN ×2 (01:59→09:55)
[2022-12-23] MEDS ORDERED: Ondansetron 4 MG Tab.DIS PO PRN (01:59)
[2022-12-23] MEDS ORDERED: Polyethylene Glycol 3350 Powder 17 GM Packet PO PRN (01:59)
[2022-12-23] MEDS ORDERED: Dextrose 5%-0.9% NaCl 1,000 ML IV SCH (02:30)
[2022-12-23] MEDS: Enoxaparin 40 MG/0.4 ML Syringe SUBCUT SCH (03:47)
[2022-12-23] MEDS ORDERED: Ketorolac 30 MG/ML SDV IVPUSH PRN (04:00)
[2022-12-23] MEDS: HYDROmorphone 1 MG/ML Syringe IVPUSH PRN ×2 (08:37→12:19)
[2022-12-23] MEDS ORDERED: traMADol 50 MG Tab PO PRN (09:55)
[2022-12-23] MEDS: Cyclobenzaprine 10 MG Tab PO SCH ×2 (10:43→17:35)
[2022-12-23] MEDS: Ketorolac 30 MG/ML SDV IVPUSH SCH ×3 (10:43→21:16)
[2022-12-23] MEDS: Insulin Aspart 100 Units/ML 3 ML Pen SUBCUT SCH ×2 (11:12→16:54)
[2022-12-23] MEDS: Insulin Glargine,Hum.Rec.Anlog 100 UNIT/ML 3 ML Pen SUBCUT SCH (11:16)
[2022-12-23] MEDS: Acetaminophen/HYDROcodone 325-5 MG Tab PO PRN (17:59)
[2022-12-23] MEDS ORDERED: Pregabalin 200 MG Cap PO SCH (21:00)
[2022-12-23] MEDS ORDERED: Insulin Glargine,Hum.Rec.Anlog 100 UNIT/ML 3 ML Pen SUBCUT SCH (21:00)
[2022-12-23] MEDS ORDERED: Montelukast 10 MG Tab PO SCH (21:00)
[2022-12-23] MEDS ORDERED: CELECOXIB 200 MG PO SCH (21:00)
[2022-12-24] MEDS: Acetaminophen/HYDROcodone 325-5 MG Tab PO PRN ×3 (01:04→12:50)
[2022-12-24] MEDS: Cyclobenzaprine 10 MG Tab PO SCH ×2 (01:05→10:06)
[2022-12-24] MEDS: Enoxaparin 40 MG/0.4 ML Syringe SUBCUT SCH (01:06)
[2022-12-24] MEDS: Ketorolac 30 MG/ML SDV IVPUSH SCH ×2 (04:58→10:07)
[2022-12-24] MEDS: Insulin Aspart 100 Units/ML 3 ML Pen SUBCUT SCH ×2 (07:42→11:27)
[2022-12-24] MEDS ORDERED: Nitroglycerin 0.4 MG Tab.SL SL PRN (08:53)
[2022-12-24] MEDS ORDERED: hydrALAZINE 20 MG/ML SDV IVPUSH PRN (08:55)
[2022-12-24] MEDS ORDERED: Pregabalin 200 MG Cap PO SCH (09:00)
[2022-12-24] MEDS ORDERED: Aspirin 81 MG Tab.EC PO SCH (09:00)
[2022-12-24] MEDS ORDERED: Ferrous Sulfate 325 MG Tab PO SCH (09:00)
[2022-12-24] MEDS ORDERED: Isosorbide Mononitrate 30 MG Tab.ER PO SCH (09:00)
[2022-12-24] MEDS ORDERED: Pantoprazole 40 MG Tab.CR PO SCH (09:00)
[2022-12-24] MEDS: Insulin Glargine,Hum.Rec.Anlog 100 UNIT/ML 3 ML Pen SUBCUT SCH (10:12)
== END 2022-12-24 13:15 | disposition home health service (06) ==
LOC: MW.ED 21:00 → MW.MS 12-23 01:20
PROVIDERS: ADMIT Hospitalist; ATTEND Hospitalist
DX: S22.39XA Fracture of one rib, unspecified side, initial encounter for closed fracture (principal); R42 Dizziness and giddiness; E10.649 Type 1 diabetes mellitus with hypoglycemia without coma; N17.9 Acute kidney failure, unspecified; Z88.8 Allergy status to other drugs, medicaments and biological substances; Z79.899 Other long term (current) drug therapy; Z79.4 Long term (current) use of insulin; W19.XXXA Unspecified fall, initial encounter
CPT/HCPCS: 36415; 71260; 74177; 80053; 81001; 82947; 85025; 96372; 96374; 96375; 96376; 99285; A9270; G0378; J1170; J1650; J1815; J1885; Q9967; 99284; J3490

== ENCOUNTER 2023-03-07 15:50 | Inpatient (IN) | payer BC ==
[2023-03-07] MEDS ORDERED: Sodium Chloride 0.9% 1,000 ML IV ONE ×2 (16:02→18:53)
[2023-03-07 16:45] LABS: BASOPHILS PERCENT AUTO 0.4 % (0.0-1.5); EOSINOPHILS PERCENT AUTO 0.6 % (0.0-7.0); HEMATOCRIT 39.6 % (36.0-46.0); LYMPHOCYTES ABSOLUTE AUTO 1.8 K/uL (0.6-2.4); LYMPHOCYTES PERCENT AUTO 36.2 % (16.0-40.0); MEAN CORPUSCULAR HEMOGLOBIN 28.8 pg (27.0-32.0); MEAN CORPUSCULAR HGB CONC 32.8 g/dL (31.0-37.0); MEAN CORPUSCULAR VOLUME 87.6 fL (80.0-98.0); MONOCYTES ABSOLUTE AUTO 0.2 K/uL (0.0-0.8); MONOCYTES PERCENT AUTO 4.6 % (0.0-15.0); NEUTROPHILS ABSOLUTE AUTO 2.9 K/uL (1.4-5.7); NEUTROPHILS PERCENT AUTO 58.2 % (48.0-80.0); NRBC ABSOLUTE 0 K/uL; PLATELET COUNT,PLT 185 K/uL (150-400); RED BLOOD CELL COUNT 4.52 M/uL (4.30-5.90); WHITE BLOOD CELL COUNT,WBC 5.05 K/uL (4.0-11.0)
[2023-03-07] MEDS: 50% Dextrose in Water 50 ML Syringe IVPUSH ONE ×2 (16:53→20:55)
[2023-03-07] MEDS ORDERED: 50% Dextrose in Water 50 ML Syringe IVPUSH ONE ×4 (17:06→23:21)
[2023-03-07 17:10] LABS: A/G RATIO 1.2 (0.9-1.6); ACETAMINOPHEN <2.0 ug/mL; ALANINE AMINOTRANSFERASE,ALT 16 IU/L (14-63); ALBUMIN 3.5 g/dL (3.4-5.0); ALKALINE PHOSPHATASE 96 U/L (46-116); ASPARTATE AMNIOTRANSFERASE,AST 17 IU/L (15-37); BILIRUBIN TOTAL 0.2 mg/dL (0.2-1.0); BLOOD UREA NITROGEN,BUN 28 mg/dL (7.0-18.0); CALCIUM 9.3 mg/dL (8.5-10.1); CHLORIDE,CL 107 mmol/L (98-107); CREATININE 1.6 mg/dL (0.6-1.0); EST CRCL DRUG DOSING (CG) 36.59 mL/min; GLUCOSE RANDOM 90 mg/dL (74-106); POTASSIUM,K 4.3 mmol/L (3.5-5.1); PROTEIN TOTAL,TP 6.3 g/dL (6.4-8.2); SODIUM,NA 143 mmol/L (136-145); TSH ULTRASENSITIVE 0.74 uIU/mL (0.36-3.74)
[2023-03-07 17:17] LABS: ESTIMATED GFR 38 mL/min (>60); ETHANOL BLOOD MEDICAL < 3.0 mg/dL
[2023-03-07] MEDS: 50% Dextrose in Water 50 ML Syringe ONE ×2 (21:04→23:10)
[2023-03-07] MEDS: Dextrose 5%-0.45% NaCl 1,000 ML IV SCH (23:29)
[2023-03-08 05:14] LABS: APPEARANCE,URINE CLEAR; BILIRUBIN,URINE NEGATIVE (NEGATIVE); COLOR,URINE YELLOW; GLUCOSE,URINE 250 mg/dL (NEGATIVE); KETONES,URINE NEGATIVE (NEGATIVE); LEUKOCYTE ESTERASE,URINE NEGATIVE (NEGATIVE); NITRITE,URINE NEGATIVE (NEGATIVE); OCCULT BLOOD,URINE NEGATIVE (NEGATIVE); PH,URINE 5.5 (5.0-8.0); PROTEIN,URINE NEGATIVE (NEGATIVE); UROBILINOGEN,URINE 0.2 EU/dL (<2.0)
[2023-03-08 05:25] LABS: AMPHETAMINES SCREEN, URINE NEGATIVE (CUTOFF=500); BARBITURATE SCREEN,URINE NEGATIVE (CUTOFF=200); BENZODIAZEPINES SCREEN,URINE NEGATIVE (CUTOFF=150); BUPRENORPHINE SCREEN,URINE NEGATIVE (CUTOFF=10); METHADONE SCREEN, URINE NEGATIVE (CUTOFF=200); METHAMPHETAMINES SCREEN, URINE NEGATIVE (CUTOFF=500); OXYCODONE SCREEN,URINE NEGATIVE (CUT0FF=100); PCP SCREEN,URINE NEGATIVE (CUTOFF=25); PROPOXYPHENE SCREEN,URINE NEGATIVE (CUTOFF=300); THC SCREEN,URINE 20 NG/ML NEGATIVE (CUTOFF=50)
[2023-03-08 06:19] LABS: BASOPHILS PERCENT AUTO 0.6 % (0.0-1.5); EOSINOPHILS ABSOLUTE AUTO 0.1 K/uL (0.0-0.7); EOSINOPHILS PERCENT AUTO 1.5 % (0.0-7.0); HEMATOCRIT 35.9 % (36.0-46.0); HEMOGLOBIN 11.6 g/dL (12.0-16.0); LYMPHOCYTES ABSOLUTE AUTO 1.9 K/uL (0.6-2.4); LYMPHOCYTES PERCENT AUTO 57.7 % (16.0-40.0); MEAN CORPUSCULAR HEMOGLOBIN 28.3 pg (27.0-32.0); MEAN CORPUSCULAR HGB CONC 32.3 g/dL (31.0-37.0); MEAN CORPUSCULAR VOLUME 87.6 fL (80.0-98.0); MONOCYTES ABSOLUTE AUTO 0.2 K/uL (0.0-0.8); MONOCYTES PERCENT AUTO 7.1 % (0.0-15.0); NEUTROPHILS ABSOLUTE AUTO 1.1 K/uL (1.4-5.7); NEUTROPHILS PERCENT AUTO 33.1 % (48.0-80.0); NRBC ABSOLUTE 0 K/uL; PLATELET COUNT,PLT 150 K/uL (150-400); WHITE BLOOD CELL COUNT,WBC 3.24 K/uL (4.0-11.0)
[2023-03-08 06:55] LABS: CALCIUM 8.1 mg/dL (8.5-10.1); CARBON DIOXIDE,CO2 24.7 mmol/L (21.0-32.0); EST CRCL DRUG DOSING (CG) 58.54 mL/min; POTASSIUM,K 3.9 mmol/L (3.5-5.1)
[2023-03-08] MEDS: Dextrose 5%-0.45% NaCl 1,000 ML IV SCH (08:33)
[2023-03-08] MEDS ORDERED: Glucagon,Human Recombinant 1 MG Vial IM PRN (12:11)
[2023-03-08] MEDS ORDERED: 50% Dextrose in Water 50 ML Syringe IVPUSH PRN (12:11)
[2023-03-08] MEDS: Insulin Aspart 100 Units/ML 3 ML Pen SUBCUT SCH ×3 (14:47→22:55)
[2023-03-08] MEDS ORDERED: Insulin Glargine,Hum.Rec.Anlog 100 UNIT/ML 3 ML Pen SUBCUT SCH (15:30)
[2023-03-09] MEDS ORDERED: Insulin Aspart 100 Units/ML 3 ML Pen SUBCUT SCH (07:59)
[2023-03-09] MEDS: Insulin Aspart 100 Units/ML 3 ML Pen SUBCUT SCH ×3 (08:41→11:00)
[2023-03-09] MEDS: Insulin Glargine,Hum.Rec.Anlog 100 UNIT/ML 3 ML Pen SUBCUT SCH ×2 (09:09→09:11)
[2023-03-09] MEDS ORDERED: Topiramate 50 MG Tab PO SCH (11:30)
[2023-03-09] MEDS ORDERED: SIMILASAN EYE EYEBOTH SCH (12:00)
[2023-03-09] MEDS ORDERED: Insulin Aspart 100 Units/ML 3 ML Pen SUBCUT ONE (12:49)
== END 2023-03-09 15:50 | disposition home or self-care (01) | DRG 817 ==
LOC: MW.ED 15:50 → MW.ICU 20:56 → MW.MS 03-09 11:28
PROVIDERS: ADMIT Internal Medicine; ATTEND Internal Medicine
DX: T38.3X2A Poisoning by insulin and oral hypoglycemic [antidiabetic] drugs, intentional self-harm, initial encounter (principal); E10.649 Type 1 diabetes mellitus with hypoglycemia without coma; E10.40 Type 1 diabetes mellitus with diabetic neuropathy, unspecified; F32.A Depression, unspecified; F41.9 Anxiety disorder, unspecified; I10 Essential (primary) hypertension; J45.909 Unspecified asthma, uncomplicated; Z86.16 Personal history of COVID-19; Z79.4 Long term (current) use of insulin; Z79.82 Long term (current) use of aspirin; Z79.899 Other long term (current) drug therapy; Z95.1 Presence of aortocoronary bypass graft; I25.2 Old myocardial infarction; Z88.8 Allergy status to other drugs, medicaments and biological substances; Z90.710 Acquired absence of both cervix and uterus; Z90.49 Acquired absence of other specified parts of digestive tract; Z98.49 Cataract extraction status, unspecified eye; Z98.890 Other specified postprocedural states; Z87.891 Personal history of nicotine dependence
CPT/HCPCS: 36415; 80048; 80053; 80143; 80179; 80305-QW; 80307; 81003; 82947; 83735; 84443; 84702; 84703; 85025; 93005; 93010; 96361; 96374; 96376; 99291; A9270-GY; J1642; J1815-GY; J3490; J7030; J7042

== ENCOUNTER 2023-04-21 01:30 | Emergency (ER) | payer BC ==
[2023-04-21] MEDS ORDERED: Sodium Chloride 0.9% 1,000 ML IV ONE (02:15)
[2023-04-21] MEDS ORDERED: Heparin Sodium 10 Units/ML 5 ML Syringe FLUSH ONE (03:38)
== END 2023-04-21 04:03 | disposition home or self-care (01) ==
LOC: MW.ED 01:30
DX: E16.2 Hypoglycemia, unspecified (principal); Z79.82 Long term (current) use of aspirin; I25.2 Old myocardial infarction; E10.9 Type 1 diabetes mellitus without complications; J45.909 Unspecified asthma, uncomplicated; Z79.84 Long term (current) use of oral hypoglycemic drugs; Z79.899 Other long term (current) drug therapy
CPT/HCPCS: 71045; 82947; 96360; 99285; J1642; J7030; 99283

== ENCOUNTER 2023-05-14 12:34 | Observation (INO) | payer BC, MEDICARE, OTHER ==
[2023-05-14] MEDS ORDERED: Sodium Chloride 0.9% 2.5 ML Syringe FLUSH PRN (14:02)
[2023-05-14] MEDS ORDERED: Sodium Chloride 0.9% 2,500 ML IV ONE (14:02)
[2023-05-14] MEDS ORDERED: Sodium Chloride 0.9% 10 ML Syringe FLUSH PRN (14:02)
[2023-05-14] MEDS ORDERED: cefTRIAXone 2 GM in Sodium Chloride 0.9% 50 ML IV ONE (14:02)
[2023-05-14 14:47] LABS: BASOPHILS PERCENT AUTO 0.9 % (0.0-1.5); EOSINOPHILS PERCENT AUTO 0.5 % (0.0-7.0); HEMATOCRIT 37.4 % (36.0-46.0); HEMOGLOBIN 12.4 g/dL (12.0-16.0); LYMPHOCYTES ABSOLUTE AUTO 1.7 K/uL (0.6-2.4); LYMPHOCYTES PERCENT AUTO 37.3 % (16.0-40.0); MEAN CORPUSCULAR HEMOGLOBIN 28.9 pg (27.0-32.0); MEAN CORPUSCULAR HGB CONC 33.2 g/dL (31.0-37.0); MEAN CORPUSCULAR VOLUME 87.2 fL (80.0-98.0); MONOCYTES ABSOLUTE AUTO 0.3 K/uL (0.0-0.8); NEUTROPHILS ABSOLUTE AUTO 2.4 K/uL (1.4-5.7); NEUTROPHILS PERCENT AUTO 54.3 % (48.0-80.0); NRBC ABSOLUTE 0 K/uL; PLATELET COUNT,PLT 203 K/uL (150-400); RED BLOOD CELL COUNT 4.29 M/uL (4.30-5.90); WHITE BLOOD CELL COUNT,WBC 4.42 K/uL (4.0-11.0)
[2023-05-14 15:01] LABS: INR 0.94 (0.86-1.11); PTT,PARTIAL THROMBOPLSTIN TIME 22.4 SEC (23.9-30.7)
[2023-05-14 15:07] LABS: PH,VENOUS 7.29 (7.31-7.41)
[2023-05-14 15:32] LABS: LACTIC ACID 1.6 mmol/L (0.4-2.0)
[2023-05-14 15:38] LABS: CARBON DIOXIDE,CO2 24.9 mmol/L (21.0-32.0); CREATININE 1.8 mg/dL (0.6-1.0)
[2023-05-14 15:39] LABS: A/G RATIO 1.2 (0.9-1.6); ALBUMIN 3.4 g/dL (3.4-5.0); BILIRUBIN TOTAL 0.3 mg/dL (0.2-1.0); CALCIUM 9.5 mg/dL (8.5-10.1); EST CRCL DRUG DOSING (CG) 32.52 mL/min; MAGNESIUM 2.1 mg/dL (1.8-2.4); PROTEIN TOTAL,TP 6.3 g/dL (6.4-8.2); TSH ULTRASENSITIVE 1.14 uIU/mL (0.36-3.74)
[2023-05-14] MEDS ORDERED: Iopamidol 755 MG/ML 500 ML Multipack Bottle IVPUSH ONE (16:23)
[2023-05-14] MEDS ORDERED: Glucagon,Human Recombinant 1 MG Vial IM PRN (22:28)
[2023-05-14] MEDS ORDERED: 50% Dextrose in Water 50 ML Syringe IVPUSH PRN (22:28)
[2023-05-14] MEDS ORDERED: Insulin Aspart 100 Units/ML 3 ML Pen SUBCUT ONE (23:15)
[2023-05-14] MEDS: Sodium Chloride 0.9% 1,000 ML IV SCH (23:19)
[2023-05-14] MEDS: Pregabalin 200 MG Cap PO SCH (23:23)
[2023-05-14] MEDS: Insulin Glargine,Hum.Rec.Anlog 100 UNIT/ML 3 ML Pen SUBCUT SCH (23:32)
[2023-05-15 04:01] LABS: APPEARANCE,URINE CLEAR; BILIRUBIN,URINE NEGATIVE (NEGATIVE); COLOR,URINE YELLOW; GLUCOSE,URINE 500 mg/dL (NEGATIVE); KETONES,URINE NEGATIVE (NEGATIVE); LEUKOCYTE ESTERASE,URINE NEGATIVE (NEGATIVE); NITRITE,URINE NEGATIVE (NEGATIVE); OCCULT BLOOD,URINE NEGATIVE (NEGATIVE); PROTEIN,URINE NEGATIVE (NEGATIVE); UROBILINOGEN,URINE 0.2 EU/dL (<2.0)
[2023-05-15 05:58] LABS: BASOPHILS PERCENT AUTO 1.1 % (0.0-1.5); EOSINOPHILS ABSOLUTE AUTO 0.1 K/uL (0.0-0.7); EOSINOPHILS PERCENT AUTO 1.4 % (0.0-7.0); HEMATOCRIT 36.2 % (36.0-46.0); HEMOGLOBIN 11.6 g/dL (12.0-16.0); LYMPHOCYTES ABSOLUTE AUTO 1.5 K/uL (0.6-2.4); LYMPHOCYTES PERCENT AUTO 41.3 % (16.0-40.0); MEAN CORPUSCULAR HEMOGLOBIN 28.2 pg (27.0-32.0); MEAN CORPUSCULAR VOLUME 87.9 fL (80.0-98.0); MONOCYTES ABSOLUTE AUTO 0.2 K/uL (0.0-0.8); MONOCYTES PERCENT AUTO 6.6 % (0.0-15.0); NEUTROPHILS ABSOLUTE AUTO 1.7 K/uL (1.4-5.7); NEUTROPHILS PERCENT AUTO 49.6 % (48.0-80.0); NRBC ABSOLUTE 0 K/uL; PLATELET COUNT,PLT 177 K/uL (150-400); RED BLOOD CELL COUNT 4.12 M/uL (4.30-5.90); WHITE BLOOD CELL COUNT,WBC 3.51 K/uL (4.0-11.0)
[2023-05-15 06:26] LABS: A/G RATIO 1.1 (0.9-1.6); ALBUMIN 2.8 g/dL (3.4-5.0); BILIRUBIN TOTAL 0.2 mg/dL (0.2-1.0); CALCIUM 8.2 mg/dL (8.5-10.1); CARBON DIOXIDE,CO2 22.2 mmol/L (21.0-32.0); EST CRCL DRUG DOSING (CG) 58.54 mL/min; MAGNESIUM 1.8 mg/dL (1.8-2.4); PHOSPHORUS 3.7 mg/dL (2.6-4.7); POTASSIUM,K 3.7 mmol/L (3.5-5.1); PROTEIN TOTAL,TP 5.3 g/dL (6.4-8.2)
[2023-05-15] MEDS: Sodium Chloride 0.9% 1,000 ML IV SCH ×3 (06:29→22:40)
[2023-05-15] MEDS: Insulin Aspart 100 Units/ML 3 ML Pen SUBCUT SCH ×3 (08:46→16:28)
[2023-05-15] MEDS: Insulin Glargine,Hum.Rec.Anlog 100 UNIT/ML 3 ML Pen SUBCUT SCH ×2 (08:47→18:48)
[2023-05-15] MEDS ORDERED: hydrOXYzine HCl 25 MG Tab PO ONE (15:50)
[2023-05-15] MEDS ORDERED: Mirtazapine 15 MG Tab PO SCH (21:00)
[2023-05-15] MEDS ORDERED: hydrOXYzine HCl 25 MG Tab PO PRN (21:00)
[2023-05-15] MEDS: Pregabalin 200 MG Cap PO SCH (21:23)
[2023-05-16 06:22] LABS: BASOPHILS PERCENT AUTO 0.6 % (0.0-1.5); EOSINOPHILS ABSOLUTE AUTO 0.1 K/uL (0.0-0.7); EOSINOPHILS PERCENT AUTO 1.6 % (0.0-7.0); HEMATOCRIT 34.5 % (36.0-46.0); HEMOGLOBIN 11.3 g/dL (12.0-16.0); LYMPHOCYTES ABSOLUTE AUTO 1.7 K/uL (0.6-2.4); LYMPHOCYTES PERCENT AUTO 54.4 % (16.0-40.0); MEAN CORPUSCULAR HEMOGLOBIN 28.8 pg (27.0-32.0); MEAN CORPUSCULAR HGB CONC 32.8 g/dL (31.0-37.0); MEAN CORPUSCULAR VOLUME 87.8 fL (80.0-98.0); MONOCYTES ABSOLUTE AUTO 0.2 K/uL (0.0-0.8); MONOCYTES PERCENT AUTO 5.9 % (0.0-15.0); NEUTROPHILS ABSOLUTE AUTO 1.2 K/uL (1.4-5.7); NEUTROPHILS PERCENT AUTO 37.5 % (48.0-80.0); NRBC ABSOLUTE 0 K/uL; PLATELET COUNT,PLT 175 K/uL (150-400); RED BLOOD CELL COUNT 3.93 M/uL (4.30-5.90)
[2023-05-16] MEDS: Sodium Chloride 0.9% 1,000 ML IV SCH (06:37)
[2023-05-16 06:53] LABS: ALBUMIN 2.6 g/dL (3.4-5.0); BILIRUBIN TOTAL 0.2 mg/dL (0.2-1.0); CALCIUM 8.2 mg/dL (8.5-10.1); EST CRCL DRUG DOSING (CG) 58.54 mL/min; POTASSIUM,K 3.7 mmol/L (3.5-5.1); PROTEIN TOTAL,TP 5.3 g/dL (6.4-8.2)
[2023-05-16] MEDS: Insulin Aspart 100 Units/ML 3 ML Pen SUBCUT SCH ×2 (08:24→12:18)
[2023-05-16] MEDS: Insulin Glargine,Hum.Rec.Anlog 100 UNIT/ML 3 ML Pen SUBCUT SCH (08:28)
[2023-05-16] MEDS ORDERED: buPROPion 150 MG Tab.SR PO SCH (09:00)
== END 2023-05-16 12:44 | disposition home or self-care (01) ==
LOC: MW.ED 12:34 → MW.MS 18:36
PROVIDERS: ADMIT Internal Medicine; ATTEND Internal Medicine
DX: R42 Dizziness and giddiness (principal); T43.295A Adverse effect of other antidepressants, initial encounter; F33.1 Major depressive disorder, recurrent, moderate; N17.9 Acute kidney failure, unspecified; E86.0 Dehydration; I25.10 Atherosclerotic heart disease of native coronary artery without angina pectoris; E10.40 Type 1 diabetes mellitus with diabetic neuropathy, unspecified; E10.10 Type 1 diabetes mellitus with ketoacidosis without coma; G47.33 Obstructive sleep apnea (adult) (pediatric); J45.909 Unspecified asthma, uncomplicated; F41.9 Anxiety disorder, unspecified; Z79.4 Long term (current) use of insulin; Z79.82 Long term (current) use of aspirin; Z79.899 Other long term (current) drug therapy; Z88.8 Allergy status to other drugs, medicaments and biological substances
CPT/HCPCS: 36415; 71045; 74177; 80053; 81003; 82803; 82947; 83605; 83735; 84100; 84443; 84484; 85025; 85610; 85730; 87040; 93005; 93246; 96361; 96365; 97162; 99291; 99292; A9270; J0696; J1815; J3490; J7030; Q9967; 93010; G0378

== ENCOUNTER 2023-05-24 22:39 | Emergency (ER) | payer BC ==
[2023-05-24 23:04] LABS: BASOPHILS PERCENT AUTO 0.6 % (0.0-1.5); EOSINOPHILS PERCENT AUTO 0.4 % (0.0-7.0); HEMATOCRIT 37.5 % (36.0-46.0); HEMOGLOBIN 12.4 g/dL (12.0-16.0); LYMPHOCYTES ABSOLUTE AUTO 2.5 K/uL (0.6-2.4); LYMPHOCYTES PERCENT AUTO 36.1 % (16.0-40.0); MEAN CORPUSCULAR HEMOGLOBIN 29.1 pg (27.0-32.0); MEAN CORPUSCULAR HGB CONC 33.1 g/dL (31.0-37.0); MONOCYTES ABSOLUTE AUTO 0.4 K/uL (0.0-0.8); MONOCYTES PERCENT AUTO 6.4 % (0.0-15.0); NEUTROPHILS ABSOLUTE AUTO 3.9 K/uL (1.4-5.7); NEUTROPHILS PERCENT AUTO 56.5 % (48.0-80.0); NRBC ABSOLUTE 0 K/uL; PLATELET COUNT,PLT 246 K/uL (150-400); RED BLOOD CELL COUNT 4.26 M/uL (4.30-5.90); WHITE BLOOD CELL COUNT,WBC 6.89 K/uL (4.0-11.0)
[2023-05-24] MEDS ORDERED: Iopamidol 755 MG/ML 500 ML Multipack Bottle IVPUSH ONE (23:16)
[2023-05-24] MEDS: Lactated Ringers 1,000 ML IV SCH (23:27)
[2023-05-24 23:34] LABS: A/G RATIO 1.4 (0.9-1.6); ACETAMINOPHEN <2.0 ug/mL; ALANINE AMINOTRANSFERASE,ALT 32 IU/L (14-63); ALBUMIN 3.7 g/dL (3.4-5.0); ALKALINE PHOSPHATASE 100 U/L (46-116); ASPARTATE AMNIOTRANSFERASE,AST 23 IU/L (15-37); BILIRUBIN TOTAL 0.3 mg/dL (0.2-1.0); BLOOD UREA NITROGEN,BUN 42 mg/dL (7.0-18.0); CALCIUM 9.2 mg/dL (8.5-10.1); CARBON DIOXIDE,CO2 23.8 mmol/L (21.0-32.0); CHLORIDE,CL 104 mmol/L (98-107); CREATININE 2.2 mg/dL (0.6-1.0); ETHANOL BLOOD MEDICAL <3 mg/dL; GLUCOSE RANDOM 192 mg/dL (74-106); LIPASE 24 U/L (16-77); POTASSIUM,K 4.4 mmol/L (3.5-5.1); PROTEIN TOTAL,TP 6.4 g/dL (6.4-8.2); SODIUM,NA 140 mmol/L (136-145); TSH ULTRASENSITIVE 4.36 uIU/mL (0.36-3.74)
[2023-05-24 23:38] LABS: ESTIMATED GFR 26 mL/min (>60)
[2023-05-24 23:54] LABS: INR 1.03 (0.86-1.11)
[2023-05-25] MEDS ORDERED: Lactated Ringers 1,000 ML IV SCH (00:30)
[2023-05-25] MEDS: Lactated Ringers 1,000 ML IV SCH (00:45)
[2023-05-25 01:32] LABS: APPEARANCE,URINE CLEAR; BILIRUBIN,URINE NEGATIVE (NEGATIVE); COLOR,URINE YELLOW; GLUCOSE,URINE 500 mg/dL (NEGATIVE); KETONES,URINE NEGATIVE (NEGATIVE); LEUKOCYTE ESTERASE,URINE NEGATIVE (NEGATIVE); NITRITE,URINE NEGATIVE (NEGATIVE); OCCULT BLOOD,URINE NEGATIVE (NEGATIVE); PH,URINE 7.5 (5.0-8.0); PROTEIN,URINE NEGATIVE (NEGATIVE); UROBILINOGEN,URINE 0.2 EU/dL (<2.0)
[2023-05-25 02:58] LABS: A/G RATIO 1.5 (0.9-1.6); ALANINE AMINOTRANSFERASE,ALT 34 IU/L (14-63); ALBUMIN 3.7 g/dL (3.4-5.0); ALKALINE PHOSPHATASE 108 U/L (46-116); ASPARTATE AMNIOTRANSFERASE,AST 24 IU/L (15-37); BILIRUBIN TOTAL 0.3 mg/dL (0.2-1.0); BLOOD UREA NITROGEN,BUN 37 mg/dL (7.0-18.0); CALCIUM 8.9 mg/dL (8.5-10.1); CHLORIDE,CL 104 mmol/L (98-107); CREATININE 1.7 mg/dL (0.6-1.0); GLUCOSE RANDOM 211 mg/dL (74-106); POTASSIUM,K 4.3 mmol/L (3.5-5.1); PROTEIN TOTAL,TP 6.2 g/dL (6.4-8.2); SODIUM,NA 141 mmol/L (136-145)
[2023-05-25 03:02] LABS: ESTIMATED GFR 36 mL/min (>60)
[2023-05-25] MEDS ORDERED: Heparin Sodium 100 Units/ML 3 ML Syringe FLUSH STA (03:40)
== END 2023-05-25 03:53 | disposition home or self-care (01) ==
LOC: MW.ED 22:39
DX: E86.0 Dehydration (principal); I10 Essential (primary) hypertension; I25.2 Old myocardial infarction; J45.909 Unspecified asthma, uncomplicated; E10.40 Type 1 diabetes mellitus with diabetic neuropathy, unspecified; Z86.16 Personal history of COVID-19; Z88.8 Allergy status to other drugs, medicaments and biological substances; Z79.899 Other long term (current) drug therapy; Z79.4 Long term (current) use of insulin
CPT/HCPCS: 36415; 70450; 70496; 70498; 80053; 80143; 80307; 81003; 82947; 83690; 83735; 84439; 84443; 85025; 85610; 87635; 93005; 96360; 96361; 99285; J1642; J7120; Q9967; 93010; 99284; U0002

== ENCOUNTER 2023-07-20 15:00 | Emergency (ER) | payer BC ==
[2023-07-20] MEDS ORDERED: Sodium Chloride 0.9% 1,000 ML IV ONE (15:44)
[2023-07-20] MEDS ORDERED: diphenhydrAMINE 50 MG/ML SDV IVPUSH ONE (15:50)
[2023-07-20] MEDS ORDERED: Metoclopramide 10 MG/2 ML SDV IVPUSH ONE (15:50)
[2023-07-20] MEDS ORDERED: Ketorolac 30 MG/ML SDV IVPUSH ONE (15:50)
[2023-07-20 16:25] LABS: BASOPHILS ABSOLUTE AUTO 0.05 K/uL (0.00-0.20); BASOPHILS PERCENT AUTO 1.1 % (0.0-1.0); EOSINOPHILS ABSOLUTE AUTO 0.03 K/uL (0.00-0.45); EOSINOPHILS PERCENT AUTO 0.7 % (0.0-6.0); HEMATOCRIT 36.1 % (37.0-47.0); IMMATURE GRAN ABSOLUTE AUTO 0.01 K/uL (0.00-0.05); IMMATURE GRAN PERCENT AUTO 0.2 % (0.0-0.4); LYMPHOCYTES ABSOLUTE AUTO 1.59 K/uL (1.00-4.80); LYMPHOCYTES PERCENT AUTO 34.9 % (24.0-44.0); MEAN CORPUSCULAR HGB CONC 33.2 g/dL (32.0-36.0); MEAN CORPUSCULAR VOLUME 87.2 fL (83.0-99.0); MEAN PLATELET VOLUME 9.5 fL (9.4-12.3); MONOCYTES ABSOLUTE AUTO 0.27 K/uL (0.00-0.80); MONOCYTES PERCENT AUTO 5.9 % (0.0-8.0); NEUTROPHILS ABSOLUTE AUTO 2.61 K/uL (1.80-7.70); NEUTROPHILS PERCENT AUTO 57.2 % (41.0-71.0); PLATELET COUNT,PLT 220 K/uL (150-400); RED BLOOD CELL COUNT 4.14 M/uL (4.10-5.30); WHITE BLOOD CELL COUNT,WBC 4.56 K/uL (3.9-11.3)
[2023-07-20 16:51] LABS: A/G RATIO 1.1 (0.9-1.6); ALBUMIN 3.2 g/dL (3.4-5.0); BILIRUBIN TOTAL 0.3 mg/dL (0.2-1.0); CALCIUM 8.4 mg/dL (8.5-10.1); CARBON DIOXIDE,CO2 27.5 mmol/L (21.0-32.0); CREATININE 1.2 mg/dL (0.6-1.0); EST CRCL DRUG DOSING (CG) 48.79 mL/min; POTASSIUM,K 4.3 mmol/L (3.5-5.1)
== END 2023-07-20 17:52 | disposition home or self-care (01) ==
LOC: MW.ED 15:00
DX: G43.909 Migraine, unspecified, not intractable, without status migrainosus (principal); R42 Dizziness and giddiness; I10 Essential (primary) hypertension; I25.2 Old myocardial infarction; E10.9 Type 1 diabetes mellitus without complications; Z86.16 Personal history of COVID-19; Z20.822 Contact with and (suspected) exposure to COVID-19; Z90.710 Acquired absence of both cervix and uterus; Z95.1 Presence of aortocoronary bypass graft; Z79.899 Other long term (current) drug therapy; Z79.4 Long term (current) use of insulin; Z88.8 Allergy status to other drugs, medicaments and biological substances
CPT/HCPCS: 36415; 70450; 80053; 82947; 85025; 87635; 93005; 96361; 96374; 96375; 99284; J1200; J1885; J2765; J7030; 93010; U0002

== ENCOUNTER 2023-08-13 17:55 | Emergency (ER) | payer BC ==
[2023-08-13] MEDS ORDERED: Acetaminophen/Codeine 120-12 MG/5 ML Soln 5 ML UD Cup PO ONE (18:14)
[2023-08-13 19:03] LABS: CORONAVIRUS COVID-19 NAA NEGATIVE (NEGATIVE); INFLUENZA A NAA NEGATIVE (NEGATIVE); INFLUENZA B NAA NEGATIVE (NEGATIVE); RESPIRATORY SYNCYTIAL VIR NAA NEGATIVE (NEGATIVE)
[2023-08-13 19:14] LABS: BASOPHILS ABSOLUTE AUTO 0.04 K/uL (0.00-0.20); BASOPHILS PERCENT AUTO 0.8 % (0.0-1.0); EOSINOPHILS ABSOLUTE AUTO 0.04 K/uL (0.00-0.45); EOSINOPHILS PERCENT AUTO 0.8 % (0.0-6.0); HEMATOCRIT 37.2 % (37.0-47.0); HEMOGLOBIN 12.8 g/dL (12.0-16.0); IMMATURE GRAN ABSOLUTE AUTO 0.02 K/uL (0.00-0.05); IMMATURE GRAN PERCENT AUTO 0.4 % (0.0-0.4); LYMPHOCYTES ABSOLUTE AUTO 1.43 K/uL (1.00-4.80); LYMPHOCYTES PERCENT AUTO 26.9 % (24.0-44.0); MEAN CORPUSCULAR HEMOGLOBIN 29.4 pg (28.0-32.0); MEAN CORPUSCULAR HGB CONC 34.4 g/dL (32.0-36.0); MEAN CORPUSCULAR VOLUME 85.5 fL (83.0-99.0); MEAN PLATELET VOLUME 9.3 fL (9.4-12.3); MONOCYTES ABSOLUTE AUTO 0.29 K/uL (0.00-0.80); MONOCYTES PERCENT AUTO 5.5 % (0.0-8.0); NEUTROPHILS PERCENT AUTO 65.6 % (41.0-71.0); PLATELET COUNT,PLT 241 K/uL (150-400); RED BLOOD CELL COUNT 4.35 M/uL (4.10-5.30); WHITE BLOOD CELL COUNT,WBC 5.32 K/uL (3.9-11.3)
[2023-08-13 19:40] LABS: A/G RATIO 0.9 (0.9-1.6); ALBUMIN 3.2 g/dL (3.4-5.0); BILIRUBIN TOTAL 0.5 mg/dL (0.2-1.0); CALCIUM 9.3 mg/dL (8.5-10.1); CARBON DIOXIDE,CO2 25.1 mmol/L (21.0-32.0); CREATININE 1.4 mg/dL (0.6-1.0); EST CRCL DRUG DOSING (CG) 41.82 mL/min; PROTEIN TOTAL,TP 6.7 g/dL (6.4-8.2)
== END 2023-08-13 19:56 | disposition home or self-care (01) ==
LOC: MW.ED 17:55
DX: J32.0 Chronic maxillary sinusitis (principal); J06.9 Acute upper respiratory infection, unspecified; I10 Essential (primary) hypertension; E10.40 Type 1 diabetes mellitus with diabetic neuropathy, unspecified; J45.909 Unspecified asthma, uncomplicated; Z86.16 Personal history of COVID-19; Z20.822 Contact with and (suspected) exposure to COVID-19; Z79.4 Long term (current) use of insulin; Z88.8 Allergy status to other drugs, medicaments and biological substances; Z79.899 Other long term (current) drug therapy; Z79.82 Long term (current) use of aspirin
CPT/HCPCS: 0241U; 36415; 71046; 80053; 85025; 87651; 99283; A9270

== ENCOUNTER 2023-09-30 19:53 | Emergency (ER) | payer BC ==
[2023-09-30] MEDS ORDERED: Acetaminophen/HYDROcodone 325-10 MG Tab PO ONE (20:13)
== END 2023-09-30 22:20 | disposition home or self-care (01) ==
LOC: MW.ED 19:53
DX: S82.851A Displaced trimalleolar fracture of right lower leg, initial encounter for closed fracture (principal); I10 Essential (primary) hypertension; I25.2 Old myocardial infarction; J45.909 Unspecified asthma, uncomplicated
CPT/HCPCS: 29515; 73610; 99284; A9270; 99283

== ENCOUNTER 2023-10-02 08:36 | Day surgery (SDC) | payer BC ==
[2023-10-02] MEDS ORDERED: fentaNYL 100 MCG/2 ML SDV ONE (08:54)
[2023-10-02] MEDS ORDERED: propofoL 50 ML ONE (08:54)
[2023-10-02] MEDS ORDERED: Ropivacaine 0.5% 5 MG/ML 30 ML SDV ONE ×2 (09:05→12:05)
[2023-10-02] MEDS ORDERED: droPERidol 5 MG/2 ML SDV IVPUSH PRN (09:09)
[2023-10-02] MEDS ORDERED: fentaNYL 50 MCG/ML SDV IVPUSH PRN (09:09)
[2023-10-02] MEDS ORDERED: Albuterol 0.083% 2.5 MG/3 ML Neb Soln NEB PRN (09:09)
[2023-10-02] MEDS ORDERED: Metoclopramide 10 MG/2 ML SDV IVPUSH PRN (09:09)
[2023-10-02] MEDS ORDERED: Morphine 2 MG/ML SYRINGE IVPUSH PRN (09:09)
[2023-10-02] MEDS ORDERED: HYDROmorphone 1 MG/ML Syringe IVPUSH PRN (09:09)
[2023-10-02] MEDS ORDERED: Ondansetron 4 MG/2 ML SDV IVPUSH PRN (09:09)
[2023-10-02] MEDS ORDERED: Naloxone 0.4 MG/ML SDV IVPUSH PRN (09:09)
[2023-10-02] MEDS ORDERED: Bupivacaine 0.5% 30 ML SDV ONE (09:50)
[2023-10-02] MEDS ORDERED: Lidocaine 2% 5 ML SDV ONE (09:50)
[2023-10-02] MEDS ORDERED: Midazolam 1 MG/ML 2 ML SDV ONE (09:51)
[2023-10-02] MEDS ORDERED: Ketamine 500 mg/10 ML MDV ONE (09:51)
[2023-10-02] MEDS ORDERED: EPINEPHrine 1 MG/1 ML Amp ONE (09:51)
[2023-10-02] MEDS ORDERED: Water For Injection, Sterile 20 ML ONE (09:52)
[2023-10-02] MEDS ORDERED: ePHEDrine 50 MG/ML SDV ONE (10:18)
[2023-10-02] MEDS ORDERED: Phenylephrine HCl 0.5 MG/5 ML AMP ONE ×2 (10:19→11:33)
[2023-10-02] MEDS ORDERED: ceFAZolin 2 GM Vial ONE (10:21)
[2023-10-02] MEDS ORDERED: Lactated Ringers 1,000 ML IV SCH (10:30)
[2023-10-02] MEDS ORDERED: Ondansetron 4 MG/2 ML SDV ONE (11:35)
[2023-10-02] MEDS ORDERED: Morphine 10 MG/ML SDV ONE (12:08)
[2023-10-02] MEDS ORDERED: Acetaminophen/HYDROcodone 325-10 MG Tab PO ONE (12:44)
[2023-10-02] MEDS ORDERED: Acetaminophen/HYDROcodone 325-5 MG Tab PO ONE (12:50)
== END 2023-10-02 14:00 | disposition home or self-care (01) ==
LOC: MW.SDS 08:36
PROVIDERS: ATTEND Orthopaedic Surgery
DX: S82.853A Displaced trimalleolar fracture of unspecified lower leg, initial encounter for closed fracture (principal); M19.90 Unspecified osteoarthritis, unspecified site; J01.90 Acute sinusitis, unspecified; J45.909 Unspecified asthma, uncomplicated; I25.119 Atherosclerotic heart disease of native coronary artery with unspecified angina pectoris; N18.9 Chronic kidney disease, unspecified; E11.621 Type 2 diabetes mellitus with foot ulcer; G47.30 Sleep apnea, unspecified; M25.469 Effusion, unspecified knee; Z79.899 Other long term (current) drug therapy; Z88.8 Allergy status to other drugs, medicaments and biological substances
CPT/HCPCS: 27822; 76000; 82947; A9270; J0171; J0665; J0690; J1642; J2250; J2371; J2405; J2704; J2795; J3010; J3490; J7120; J2270

== ENCOUNTER 2023-10-19 16:06 | Emergency (ER) | payer BC ==
[2023-10-19] MEDS: Ibuprofen 600 MG Tab PO ONE (17:21)
[2023-10-19] MEDS: oxyCODONE 5 MG Tab PO ONE (17:53)
[2023-10-19] MEDS: Acetaminophen/HYDROcodone 325-5 MG Tab PO ONE (17:54)
== END 2023-10-19 18:33 | disposition home or self-care (01) ==
LOC: MW.ED 16:06
DX: S32.2XXA Fracture of coccyx, initial encounter for closed fracture (principal); I10 Essential (primary) hypertension; I25.2 Old myocardial infarction; E10.9 Type 1 diabetes mellitus without complications; Z86.16 Personal history of COVID-19; Z95.1 Presence of aortocoronary bypass graft; Z90.710 Acquired absence of both cervix and uterus; Z79.899 Other long term (current) drug therapy; Z79.82 Long term (current) use of aspirin; Z79.4 Long term (current) use of insulin; Z88.7 Allergy status to serum and vaccine; W18.30XA Fall on same level, unspecified, initial encounter
CPT/HCPCS: 72220; 99283; A9270